=== PATIENT | male | born 1960 | race Caucasian/White ===

== ENCOUNTER 2017-07-02 09:36 | Emergency (ER) | payer MEDICAID ==
--- NOTE | 2017-07-02 10:25 | EDM.PDOC ---
ED HPI GENERAL MEDICAL PROBLEM - General Chief Complaint: Chest Pain Stated Complaint: CHEST PAIN DIFFICU;T TIME BREATHING Time Seen by Provider: 07/02/17 10:00 Source of Information: Reports: Patient History Limitations: Reports: No Limitations - History of Present Illness INITIAL COMMENTS - FREE TEXT/NARRATIVE: 56-year-old male with previous coronary artery disease, stent placement and triple bypass who over the last 2 hours has had intermittent brief chest pains lasting 10-12 seconds. No shortness of breath or diaphoresis. He came in "just to make sure". Onset: Today Duration: Hour(s): (For the last 2-1/2 hours) Location: Reports: Chest Quality: Reports: Sharp Severity: Mild Associated Symptoms: Reports: No Other Symptoms Chest Pain Score (Numeric/FACES): 7 - Related Data Allergies Allergy/AdvReac Type Severity Reaction Status Date / Time morphine AdvReac Nausea and Verified 10/09/16 07:56 Vomiting Sulfa (Sulfonamide AdvReac Nausea and Verified 10/09/16 12:34 Antibiotics) Vomiting Home Meds: Home Meds Aspirin [Halfprin] 81 mg PO DAILY 01/09/15 [History] Gabapentin [Neurontin] 600 mg PO QID 01/09/15 [History] Insulin Aspart [NovoLOG] 1 unit SQ TIDMEALS 01/09/15 [History] Insulin Glarg,Human.Rec.Analog [Lantus] 20 unit SQ BID 01/09/15 [History] metFORMIN [Glucophage] 1,000 mg PO BIDMEALS 10/08/16 [History] Acetaminophen/HYDROcodone [[place] 325-5 MG] 1 - 2 tab PO Q4H PRN #50 tablet 10/10 [Rx] Past Medical History Cardiovascular History: Reports: Other (See Below) Other Cardiovascular History: CABG X3 IN 2014 Musculoskeletal History: Reports: Back Pain, Chronic Psychiatric History: Reports: Bipolar Endocrine/Metabolic History: Reports: Diabetes, Type II, IDDM - Infectious Disease History Infectious Disease History: Reports: Chicken Pox - Past Surgical History HEENT Surgical History: Reports: Adenoidectomy, Myringotomy w Tube(s) Cardiovascular Surgical History: Reports: Coronary Artery Bypass, Coronary Artery Stent Male Surgical History: Reports: Circumcision, Vasectomy Neurological Surgical History: Reports: Lumbar Spine Musculoskeletal Surgical History: Reports: Arthroscopic Knee, Knee Replacement, Shoulder Surgery, Other (See Below) Social & Family History - Tobacco Use Smoking Status *Q: Never Smoker Second Hand Smoke Exposure: No - Caffeine Use Caffeine Use: Reports: None - Alcohol Use Days Per Week of Alcohol Use: 0 - Recreational Drug Use Recreational Drug Use: No ED ROS GENERAL - Review of Systems Review Of Systems: See Below Constitutional: Reports: No Symptoms HEENT: Reports: No Symptoms Respiratory: Denies: Shortness of Breath, Pleuritic Chest Pain Cardiovascular: Reports: Chest Pain. Denies: Blood Pressure Problem, Palpitations GI/Abdominal: Denies: Abdominal Pain, Nausea, Vomiting Skin: Denies: Diaphoresis Neurological: Reports: No Symptoms Psychiatric: Reports: No Symptoms ED EXAM, GENERAL - Physical Exam Exam: See Below Exam Limited By: No Limitations General Appearance: Alert, No Apparent Distress Eye Exam: Bilateral Eye: Normal Inspection Head: Atraumatic Respiratory/Chest: No Respiratory Distress Cardiovascular: Regular Rate, Rhythm, Extra Beats (Occasional) GI/Abdominal: Soft, Non-Tender Extremities: Normal Inspection. No: Pedal Edema Neurological: Alert, Oriented Psychiatric: Normal Affect, Normal Mood Skin Exam: Warm, Dry Course - Vital Signs Last Recorded V/S: Last Vital Signs Temp 97.5 F 07/02/17 10:35 Pulse 90 07/02/17 10:35 Resp 12 07/02/17 10:35 BP 137/92 H 07/02/17 10:35 Pulse Ox 96 07/02/17 10:35 - Orders/Labs/Meds Orders: Active Orders 24 hr Category Date Time Status EKG Documentation Completion [RC] ASDIRECTED Care 07/02/17 10:03 Active EKG 12 Lead [EK] Routine Ther 07/02/17 10:03 Ordered Labs: Laboratory Tests 07/02/17 07/02/17 Range/Units 10:16 10:16 WBC 7.2 (4.5-11.0) K/uL RBC 5.58 (4.30-5.90) M/uL Hgb 15.1 H (12.0-15.0) g/dL Hct 43.5 (40.0-54.0) % MCV 78 L (80-98) fL MCH 27 (27-31) pg MCHC 35 (32-36) % Plt Count 247 (150-400) K/uL Neut % (Auto) 63 (36-66) % Lymph % (Auto) 25 (24-44) % [place] % (Auto) 10 H (2-6) % Eos % (Auto) 2 (2-4) % Baso % (Auto) 0 (0-1) % Sodium 137 L (140-148) mmol/L Potassium 4.2 (3.6-5.2) mmol/L Chloride 104 (100-108) mmol/L Carbon Dioxide 27 (21-32) mmol/L Anion Gap 10.2 (5.0-14.0) mmol/L BUN 16 (7-18) mg/dL Creatinine 1.0 (0.8-1.3) mg/dL Est Cr Clr Drug Dosing 78.85 mL/min Estimated GFR (MDRD) > 60 (>60) Glucose 372 H (74-106) mg/dL Calcium 8.2 L (8.5-10.1) mg/dL Troponin I < 0.017 (0.000-0.056) ng/mL Meds: Medications Discontinued Medications Generic Name Dose Route Start Last Admin Trade Name Marcin PRN Reason Stop Dose Admin Nitroglycerin 0.4 mg 07/02/17 10:28 07/02/17 10:33 Nitrostat SL 07/02/17 10:29 0.4 mg ONETIME ONE Administration - Re-Assessments/Exams Free Text/Narrative Re-Assessment/Exam: 07/02/17 10:30 EKG showed no acute findings, sinus rhythm. CBC, BMP and troponin were obtained , a sublingual nitroglycerin was given to see if it would relieve esophageal spasm which is more typical of the types of pain he is experiencing. His vital signs remained stable. 07/02/17 10:51 Nitroglycerin had no effect, he was still experiencing very brief discomfort every 2-3 minutes for about 10 seconds. I offered a GI cocktail but when his troponin came back negative and he was reassured it wasn't cardiac pain he wanted to just give it a day or 2 to see if it will go away. Departure - Departure Time of Disposition: 11:10 Disposition: Home, Self-Care 01 Condition: Good Clinical Impression: Atypical chest pain, Hyperglycemia Coronary artery disease Qualifiers: Coronary Disease-Associated Artery/Lesion type: unspecified vessel or lesion type [place] vs. transplanted heart: [place] heart Associated angina: without angina Qualified Code(s): I25.10 - Atherosclerotic heart disease of [place] coronary artery without angina pectoris - Discharge Information Instructions: Nonspecific Chest Pain, [id number] Referrals: PCP,None [Primary Care Provider] - Forms: ED Department Discharge Care Plan Goals: Continue your regular medications and increase activity as tolerated. Return any time if pain worsens or you develop other concerns. - My Orders Last 24 Hours: My Active Orders 07/02/17 10:03 EKG Documentation Completion [RC] ASDIRECTED EKG 12 Lead [EK] Routine - Assessment/Plan Last 24 Hours: My Active Orders 07/02/17 10:03 EKG Documentation Completion [RC] ASDIRECTED EKG 12 Lead [EK] Routine
[2017-07-02] MEDS ORDERED: Nitroglycerin 0.4 MG Tab.SL SL ONE (10:28)
[2017-07-02 10:37] VITALS: BP 137/92
== END 2017-07-02 11:11 | disposition home or self-care (01) ==
LOC: JP.ED 09:36
DX: R07.89 Other chest pain (principal); E11.65 Type 2 diabetes mellitus with hyperglycemia; I25.10 Atherosclerotic heart disease of native coronary artery without angina pectoris; Z95.1 Presence of aortocoronary bypass graft; Z95.5 Presence of coronary angioplasty implant and graft; Z96.22 Myringotomy tube(s) status; Z98.52 Vasectomy status; Z96.659 Presence of unspecified artificial knee joint; Z98.890 Other specified postprocedural states; Z79.82 Long term (current) use of aspirin; Z79.4 Long term (current) use of insulin; Z79.84 Long term (current) use of oral hypoglycemic drugs; Z79.899 Other long term (current) drug therapy; Z88.2 Allergy status to sulfonamides; Z88.5 Allergy status to narcotic agent
CPT/HCPCS: 36415; 80048; 84484; 85025; 93005; 99285; A9270

== ENCOUNTER 2017-08-26 12:35 | Emergency (ER) | payer MEDICAID ==
[2017-08-26] MEDS ORDERED: Sodium Chloride 0.9% 10 ML Syringe FLUSH PRN ×2 (13:02→16:03)
[2017-08-26] MEDS ORDERED: Aspirin 81 MG Tab.Chew PO ONE (13:02)
[2017-08-26] MEDS ORDERED: fentaNYL 100 MCG/2 ML SDV IVPUSH ONE ×2 (13:03→13:55)
[2017-08-26] MEDS ORDERED: Ondansetron 4 MG/2 ML SDV IVPUSH ONE (13:03)
--- NOTE | 2017-08-26 13:51 | CR ---
Chest 1V Frontal FINDINGS: There is elevation of the right hemidiaphragm. Intact sternal wires are demonstrated. The h eart and vascular structures are normal in appearance. No infiltrates or effusions are demonstrated. The skeletal structures are unremarkable. IMPRESSION: 1. No acute findings.
[2017-08-26] MEDS ORDERED: Nitroglycerin 0.4 MG Tab.SL SL ONE (14:25)
[2017-08-26] MEDS ORDERED: Nitroglycerin/D5W 25 MG/250 ML BOTTLE IV SCH (15:00)
[2017-08-26] MEDS ORDERED: Clopidogrel 75 MG Tab PO ONE (16:03)
[2017-08-26] MEDS ORDERED: Heparin Sodium 5,000 Units/ML Vial IVPUSH ONE (16:03)
[2017-08-26] MEDS ORDERED: Heparin Sodium/D5W 25,000 UNITS/500 ML BAG IV SCH (16:15)
--- NOTE | 2017-08-26 16:17 | EDM.PDOC ---
ED HPI GENERAL MEDICAL PROBLEM - General Chief Complaint: Chest Pain Stated Complaint: CHEST PAIN Time Seen by Provider: 08/26/17 12:58 Source of Information: Reports: Patient, Family, RN Notes Reviewed History Limitations: Reports: No Limitations - History of Present Illness INITIAL COMMENTS - FREE TEXT/NARRATIVE: 56-year-old gentleman presents to the emergency department day complaint of chest pain, he has a known history of coronary artery disease states the chest pain started 45 minutes prior it feels worse than his prior heart attack he is nauseated the pain is radiating down his left arm and he does feel short of breath he is not diaphoretic Chest Pain Score (Numeric/FACES): 3 - Related Data Allergies Allergy/AdvReac Type Severity Reaction Status Date / Time morphine AdvReac Nausea and Verified 08/26/17 14:38 Vomiting Sulfa (Sulfonamide AdvReac Nausea and Verified 08/26/17 14:38 Antibiotics) Vomiting Home Meds: Home Meds Aspirin [Halfprin] 81 mg PO DAILY 01/09/15 [History] Gabapentin [Neurontin] 600 mg PO QID 01/09/15 [History] Insulin Aspart [NovoLOG] 1 unit SQ TIDMEALS 01/09/15 [History] Insulin Glarg,Human.Rec.Analog [Lantus] 30 unit SQ BID 01/09/15 [History] metFORMIN [Glucophage] 1,000 mg PO BIDMEALS 10/08/16 [History] Past Medical History Cardiovascular History: Reports: CAD, High Cholesterol, Hypertension, [place], Other (See Below) Other Cardiovascular History: CABG X3 IN 2014 Musculoskeletal History: Reports: Back Pain, Chronic Psychiatric History: Reports: Bipolar Endocrine/Metabolic History: Reports: Diabetes, Type II, IDDM - Infectious Disease History Infectious Disease History: Reports: Chicken Pox, Mumps - Past Surgical History HEENT Surgical History: Reports: Adenoidectomy, Myringotomy w Tube(s) Cardiovascular Surgical History: Reports: Coronary Artery Bypass, Coronary Artery Stent GI Surgical History: Reports: Cholecystectomy Male Surgical History: Reports: Circumcision, Vasectomy Neurological Surgical History: Reports: Lumbar Spine Musculoskeletal Surgical History: Reports: Arthroscopic Knee, Knee Replacement, Shoulder Surgery, Other (See Below) Other Musculoskeletal Surgeries/Procedures:: back surgery, multiple left leg surgery, left and right shoulder surgerys Social & Family History - Family History Cardiac: Reports: Heart Failure, [place] Neurological: Reports: None Oncologic: Reports: Pancreatic - Tobacco Use Smoking Status *Q: Never Smoker Second Hand Smoke Exposure: No - Caffeine Use Caffeine Use: Reports: Soda, Tea Other Caffeine Use: diet - Alcohol Use Days Per Week of Alcohol Use: 0 - Recreational Drug Use Recreational Drug Use: No ED ROS GENERAL - Review of Systems Review Of Systems: See Below Constitutional: Reports: No Symptoms HEENT: Reports: No Symptoms Respiratory: Reports: Shortness of Breath Cardiovascular: Reports: Chest Pain GI/Abdominal: Reports: Nausea. Denies: Vomiting : Reports: No Symptoms Musculoskeletal: Reports: No Symptoms Skin: Reports: No Symptoms Neurological: Reports: No Symptoms ED EXAM, GENERAL - Physical Exam Exam: See Below Exam Limited By: No Limitations General Appearance: Alert, Moderate Distress Head: Atraumatic, Normocephalic Neck: Normal Inspection, Supple, Non-Tender, Full Range of Motion Respiratory/Chest: No Respiratory Distress, Lungs Clear, Normal Breath Sounds, No Accessory Muscle Use Cardiovascular: No Murmur, Tachycardia GI/Abdominal: Soft, Non-Tender Course - Vital Signs Last Recorded V/S: Last Vital Signs Temp 99.0 F 08/26/17 13:33 Pulse 111 H 08/26/17 13:33 Resp 16 08/26/17 15:44 BP 129/80 08/26/17 15:44 Pulse Ox 99 08/26/17 15:44 - Orders/Labs/Meds Orders: Active Orders 24 hr Category Date Time Status Cardiac Monitoring [RC] .As Directed Care 08/26/17 13:02 Active EKG Documentation Completion [RC] ASDIRECTED Care 08/26/17 13:03 Active Peripheral IV Care [RC] . DIRECTED Care 08/26/17 13:03 Active Peripheral IV Care [RC] . DIRECTED Care 08/26/17 16:04 Ordered GLUCOSE POC LAB TO COLLECT [POC] Stat Lab 08/26/17 17:00 Ordered Heparin Sodium/D5W [Heparin 25,000 Units in D5W 500 ML] Med 08/26/17 16:15 Ordered 25,000 units in 500 ml IV TITRATE Metoprolol Tartrate [Lopressor] Med 08/26/17 16:18 Once 25 mg PO ONETIME ONE Nitroglycerin/D5W [Nitroglycerin 25 MG/D5W 250 ML] Med 08/26/17 15:00 Active 25 mg in 250 ml IV TITRATE Sodium Chloride 0.9% [Saline Flush] Med 08/26/17 13:02 Active 10 ml FLUSH ASDIRECTED PRN Sodium Chloride 0.9% [Saline Flush] Med 08/26/17 16:03 Ordered 10 ml FLUSH ASDIRECTED PRN Peripheral IV Insertion Adult [OM.PC] Stat Oth 08/26/17 13:02 Ordered Peripheral IV Insertion Adult [OM.PC] Stat Oth 08/26/17 16:03 Ordered Saline Lock Insert [OM.PC] Stat Oth 08/26/17 13:02 Ordered EKG 12 Lead [EK] Stat Ther 08/26/17 13:03 Ordered Medication Orders Nitroglycerin/Dextrose (Nitroglycerin 25 Mg/D5w 250 Ml) 25 mg in 250 mls @ 1.2 mls/hr IV TITRATE EMERSON; 2 MCG/MIN PRN Reason: Protocol Last Admin: 08/26/17 15:41 Dose: 2 mcg/min, 1.2 mls/hr Heparin Sodium/Dextrose (Heparin 25,000 Units In D5w 500 Ml) 25,000 units in 500 mls @ 0 mls/hr IV TITRATE EMERSON; 12 UNITS/KG/HR PRN Reason: Protocol Sodium Chloride (Saline Flush) 10 ml FLUSH ASDIRECTED PRN PRN Reason: Keep Vein Open Last Admin: 08/26/17 14:11 Dose: 10 ml Sodium Chloride (Saline Flush) 10 ml FLUSH ASDIRECTED PRN PRN Reason: Keep Vein Open Labs: Laboratory Tests 08/26/17 08/26/17 08/26/17 Range/Units 13:12 13:12 13:12 WBC 11.5 H (4.5-11.0) K/uL RBC 6.02 H (4.30-5.90) M/uL Hgb 16.4 H (12.0-15.0) g/dL Hct 46.4 (40.0-54.0) % MCV 77 L (80-98) fL MCH 27 (27-31) pg MCHC 35 (32-36) % Plt Count 299 (150-400) K/uL Neut % (Auto) 76 H (36-66) % Lymph % (Auto) 17 L (24-44) % [place] % (Auto) 6 (2-6) % Eos % (Auto) 1 L (2-4) % Baso % (Auto) 0 (0-1) % PT 11.2 (9.5-12.0) sec INR 1.04 (0.80-1.20) APTT 25.4 L (27.0-36.0) sec Sodium 135 L (140-148) mmol/L Potassium 3.8 (3.6-5.2) mmol/L Chloride 103 (100-108) mmol/L Carbon Dioxide 20 L (21-32) mmol/L Anion Gap 15.8 H (5.0-14.0) mmol/L BUN 17 (7-18) mg/dL Creatinine 1.2 (0.8-1.3) mg/dL Est Cr Clr Drug Dosing 65.71 mL/min Estimated GFR (MDRD) > 60 (>60) Glucose 483 H* (74-106) mg/dL Calcium 9.5 D (8.5-10.1) mg/dL Total Bilirubin 0.9 D (0.2-1.0) mg/dL AST 86 H (15-37) U/L ALT 134 H (12-78) U/L Alkaline Phosphatase 153 H (46-116) U/L CK-MB (CK-2) 2.2 (0-3.6) mg/mL Troponin I 0.031 (0.000-0.056) ng/mL Total Protein 7.1 (6.4-8.2) g/dL Albumin 3.3 L (3.4-5.0) g/dL Globulin 3.8 H (2.3-3.5) g/dL Albumin/Globulin Ratio 0.9 L (1.2-2.2) 08/26/17 Range/Units 15:20 WBC (4.5-11.0) K/uL RBC (4.30-5.90) M/uL Hgb (12.0-15.0) g/dL Hct (40.0-54.0) % MCV (80-98) fL MCH (27-31) pg MCHC (32-36) % Plt Count (150-400) K/uL Neut % (Auto) (36-66) % Lymph % (Auto) (24-44) % [place] % (Auto) (2-6) % Eos % (Auto) (2-4) % Baso % (Auto) (0-1) % PT (9.5-12.0) sec INR (0.80-1.20) APTT (27.0-36.0) sec Sodium (140-148) mmol/L Potassium (3.6-5.2) mmol/L Chloride (100-108) mmol/L Carbon Dioxide (21-32) mmol/L Anion Gap (5.0-14.0) mmol/L BUN (7-18) mg/dL Creatinine (0.8-1.3) mg/dL Est Cr Clr Drug Dosing mL/min Estimated GFR (MDRD) (>60) Glucose (74-106) mg/dL Calcium (8.5-10.1) mg/dL Total Bilirubin (0.2-1.0) mg/dL AST (15-37) U/L ALT (12-78) U/L Alkaline Phosphatase (46-116) U/L CK-MB (CK-2) (0-3.6) mg/mL Troponin I 1.449 H* (0.000-0.056) ng/mL Total Protein (6.4-8.2) g/dL Albumin (3.4-5.0) g/dL Globulin (2.3-3.5) g/dL Albumin/Globulin Ratio (1.2-2.2) Meds: Medications Generic Name Dose Route Start Last Admin Trade Name Freq PRN Reason Stop Dose Admin Nitroglycerin/Dextrose 25 mg in 250 mls @ 1.2 mls/hr 08/26/17 15:00 08/26/17 15:41 Nitroglycerin 25 Mg/D5w 250 Ml IV 2 mcg/min TITRATE EMERSON 1.2 mls/hr Protocol Administration 2 MCG/MIN Heparin Sodium/Dextrose 25,000 units in 500 mls @ 0 mls/hr 08/26/17 16:15 Heparin 25,000 Units In D5w 500 Ml IV TITRATE EMERSON Protocol 12 UNITS/KG/HR Sodium Chloride 10 ml 08/26/17 13:02 08/26/17 14:11 Saline Flush FLUSH 10 ml ASDIRECTED PRN Administration Keep Vein Open Sodium Chloride 10 ml 08/26/17 16:03 Saline Flush FLUSH ASDIRECTED PRN Keep Vein Open Discontinued Medications Generic Name Dose Route Start Last Admin Trade Name Goyoq PRN Reason Stop Dose Admin Aspirin 324 mg 08/26/17 13:02 08/26/17 13:21 Aspirin PO 08/26/17 13:03 324 mg ONETIME ONE Administration Clopidogrel Bisulfate 300 mg 08/26/17 16:03 Plavix PO 08/26/17 16:04 ONETIME ONE Fentanyl 100 mcg 08/26/17 13:03 08/26/17 13:21 Sublimaze IVPUSH 08/26/17 13:04 100 mcg ONETIME ONE Administration Fentanyl 50 mcg 08/26/17 13:55 08/26/17 14:07 Sublimaze IVPUSH 08/26/17 13:56 50 mcg ONETIME ONE Administration Heparin Sodium (Porcine) 4,000 units 08/26/17 16:03 Heparin Sodium IVPUSH 08/26/17 16:04 .BOLUS ONE Insulin Aspart 10 unit 08/26/17 14:35 Novolog SUBCUT 08/26/17 14:36 NOW STA Insulin Aspart 30 unit 08/26/17 15:49 Novolog SUBCUT 08/26/17 15:50 NOW STA Insulin Aspart Confirm 08/26/17 16:15 Novolog Administered 08/26/17 16:16 Dose 1,000 unit .ROUTE .STK-MED ONE Nitroglycerin 0.4 mg 08/26/17 14:25 08/26/17 14:30 Nitrostat SL 08/26/17 14:26 0.4 mg ONETIME ONE Administration Ondansetron HCl 4 mg 08/26/17 13:03 08/26/17 13:23 Zofran IVPUSH 08/26/17 13:04 4 mg ONETIME ONE Administration Departure - Departure Time of Disposition: 16:22 Disposition: DC/Tfer to Acute Hospital 02 Reason for Transfer *Q: Primary PCI Indicated Condition: Fair Clinical Impression: Non-STEMI (non-ST elevated myocardial infarction) Referrals: Gilberto Cage MD [Primary Care Provider] - Forms: ED Department Discharge - My Orders Last 24 Hours: My Active Orders 08/26/17 13:02 Cardiac Monitoring [RC] .As Directed Sodium Chloride 0.9% [Saline Flush] 10 ml FLUSH ASDIRECTED PRN Peripheral IV Insertion Adult [OM.PC] Stat Saline Lock Insert [OM.PC] Stat 08/26/17 13:03 EKG Documentation Completion [RC] ASDIRECTED Peripheral IV Care [RC] . DIRECTED EKG 12 Lead [EK] Stat 08/26/17 15:00 Nitroglycerin/D5W [Nitroglycerin 25 MG/D5W 250 ML] 25 mg in 250 ml IV TITRATE 08/26/17 16:03 Sodium Chloride 0.9% [Saline Flush] 10 ml FLUSH ASDIRECTED PRN Peripheral IV Insertion Adult [OM.PC] Stat 08/26/17 16:04 Peripheral IV Care [RC] . DIRECTED 08/26/17 16:15 Heparin Sodium/D5W [Heparin 25,000 Units in D5W 500 ML] 25,000 units in 500 ml IV TITRATE 08/26/17 16:18 Metoprolol Tartrate [Lopressor] 25 mg PO ONETIME ONE 08/26/17 17:00 GLUCOSE POC LAB TO COLLECT [POC] Stat - Assessment/Plan Last 24 Hours: My Active Orders 08/26/17 13:02 Cardiac Monitoring [RC] .As Directed Sodium Chloride 0.9% [Saline Flush] 10 ml FLUSH ASDIRECTED PRN Peripheral IV Insertion Adult [OM.PC] Stat Saline Lock Insert [OM.PC] Stat 08/26/17 13:03 EKG Documentation Completion [RC] ASDIRECTED Peripheral IV Care [RC] . DIRECTED EKG 12 Lead [EK] Stat 08/26/17 15:00 Nitroglycerin/D5W [Nitroglycerin 25 MG/D5W 250 ML] 25 mg in 250 ml IV TITRATE 08/26/17 16:03 Sodium Chloride 0.9% [Saline Flush] 10 ml FLUSH ASDIRECTED PRN Peripheral IV Insertion Adult [OM.PC] Stat 08/26/17 16:04 Peripheral IV Care [RC] . DIRECTED 08/26/17 16:15 Heparin Sodium/D5W [Heparin 25,000 Units in D5W 500 ML] 25,000 units in 500 ml IV TITRATE 08/26/17 16:18 Metoprolol Tartrate [Lopressor] 25 mg PO ONETIME ONE 08/26/17 17:00 GLUCOSE POC LAB TO COLLECT [POC] Stat Plan: Assessment Acuity = acute Site and laterality = non-ST elevation myocardial infarction complicated patient with known history coronary artery disease, hypertension, dyslipidemia and diabetes mellitus type 2 Etiology = probably related coronary artery disease Manifestations = chest pain no stable Location of injury = Home Lab values = WBC elevated 11.5 consistent with leukocytosis, hemoglobin elevated 16.9 sodium low at 135 consistent hyponatremia glucose elevated at 483 consistent with hyperglycemia AST elevated 86 ALTs elevated 153 consistent with elevated liver enzymes initial troponin was 0.0312 hours later 1.449 albumin low at 3.3 consistent hypoalbuminemia EKG demonstrates sinus rhythm I don't appreciate any ST elevations or depressions, chest x-ray shows no acute process Plan Called and discussed case with Dr. Seo hospitalist sales solutions associate at [facility] kindly accept the patient in transport he will be transported via EMS ground he has received aspirin, 3 sprays of nitroglycerin followed by a nitro drip 150 g of fentanyl he is pain-free at this time 25 mg of metoprolol 300 mg of Plavix 4000 and unit bolus of heparin and initiated heparin drip upon discharge from the ED Patient was in agreement with the plan all questions were answered, This note was dictated using [employer] voice recognition software please call with any questions.
[2017-08-26] MEDS ORDERED: Metoprolol Tartrate 25 MG Tab PO ONE (16:18)
[2017-08-26 16:35] VITALS: BP 129/97
== END 2017-08-26 16:58 ==
LOC: JP.ED 12:35
DX: I21.4 Non-ST elevation (NSTEMI) myocardial infarction (principal); Z88.5 Allergy status to narcotic agent; Z88.2 Allergy status to sulfonamides; Z79.82 Long term (current) use of aspirin; Z79.899 Other long term (current) drug therapy; E11.9 Type 2 diabetes mellitus without complications; Z79.4 Long term (current) use of insulin
CPT/HCPCS: 36415; 71010; 80053; 82553; 82962; 84484; 85025; 85610; 85730; 93005; 96374; 96375; 96376; 99285; A9270; J1644; J2405; J3010; J7050

== ENCOUNTER 2018-02-16 08:35 | Inpatient (IN) | payer MEDICAID ==
[~2018-02-16 08:35] MED LIST: Acetaminophen 500 MG Tab PO ONE; Gabapentin 300 MG Cap PO ONE; Lactated Ringers 1,000 ML IV SCH; Scopolamine 1.5 MG Transdermal Patch TOP SCH
[2018-02-16] MEDS ORDERED: ceFAZolin 2 GM in Premix Bag 1 BAG IV ONE (09:00)
[2018-02-16] MEDS ORDERED: Ondansetron 4 MG/2 ML SDV ONE (09:15)
[2018-02-16] MEDS ORDERED: Dexamethasone 4 MG/ML SDV ONE (09:15)
[2018-02-16] MEDS ORDERED: Propofol 200 MG/20 ML SDV ONE ×4 (09:15→16:14)
[2018-02-16] MEDS ORDERED: Rocuronium 50 MG/5 ML Vial ONE (09:15)
[2018-02-16] MEDS ORDERED: Succinylcholine 200 MG/10 ML MDV ONE (09:15)
[2018-02-16] MEDS ORDERED: fentaNYL 250 MCG/5 ML SDV ONE ×5 (09:15→15:37)
[2018-02-16] MEDS ORDERED: Ketamine 500 MG/5 ML MDV IV SCH (10:00)
[2018-02-16] MEDS ORDERED: Ropivacaine 49.25 ML, Ketorolac 30 MG, EPINEPHrine 0.5 MG, cloNIDine 80 MCG, Sodium Chl... INJECT ONE ×5 (10:00)
[2018-02-16] MEDS ORDERED: Thrombin (Bovine) 5,000 Unit Kit ONE (10:24)
[2018-02-16] MEDS ORDERED: Povidone-Iodine 10% Soln 118.25 ML Bottle ONE (10:24)
[2018-02-16] MEDS ORDERED: HYDROmorphone/Normal Saline 15 MG/30 ML PCA IV PRN (10:28)
[2018-02-16] MEDS ORDERED: Naloxone 0.4 MG/ML SDV IV PRN (10:30)
[2018-02-16] MEDS: Tranexamic Acid 900 MG in Sodium Chloride 0.9% 50 ML IV SCH ×2 (13:28→17:27)
[2018-02-16] MEDS ORDERED: Linezolid 200 MG/100 ML Bag IRR ONE (15:08)
[2018-02-16] MEDS ORDERED: Meropenem 500 MG SDV ONE (15:45)
[2018-02-16] MEDS ORDERED: Labetalol 20 MG/4 ML Syringe ONE (16:07)
[2018-02-16] MEDS ORDERED: Lactated Ringers 1,000 ML ONE (16:23)
[2018-02-16] MEDS ORDERED: hydrOXYzine HCl 100 MG/2 ML SDV IM ONE (16:30)
[2018-02-16] MEDS ORDERED: ceFAZolin 1 GM in Premix Bag 1 BAG IV ONE (17:15)
[2018-02-16] MEDS ORDERED: 50% Dextrose in Water 50 ML Syringe IVPUSH PRN (17:27)
[2018-02-16] MEDS ORDERED: Glucagon,Human Recombinant 1 MG Vial IM PRN (17:27)
[2018-02-16] MEDS ORDERED: Glucose Gel 15 GM in 37.5 GM Tube PO PRN (17:27)
--- NOTE | 2018-02-16 17:27 | OR ---
DATE OF PROCEDURE: 02/16/2018 PREOPERATIVE DIAGNOSIS: Lumbar stenosis, L4-L5 and L5-S1. POSTOPERATIVE DIAGNOSIS: Lumbar stenosis, L4-L5 and L5-S1. PROCEDURE: 1. Anterior lumbar interbody fusion, L4-L5 and L5-S1. 2. Interbody placement at L4-L5 and L5-S1. 3. Segmental instrumentation anteriorly at L4-L5 and L5-S1. CO-SURGEON: Gal Dyson MD. ANESTHESIA: General endotracheal intubation. FLUIDS: Lactated Ringer's solution. ESTIMATED BLOOD LOSS: 250 mL. COMPLICATIONS: None. SPECIMEN: None. DISCHARGE DISPOSITION: Stable to PACU. HISTORY AND INDICATIONS FOR THE PROCEDURE: The patient was seen preoperatively in the clinic. He failed nonoperative treatment. Preoperative imaging confirmed the above- mentioned diagnosis. Risks and benefits of the procedure were explained to the patient. Informed consent was obtained. DETAILS OF PROCEDURE: The patient was seen preoperatively by myself and the Anesthesia staff in the preoperative holding area, where the operative site was marked. He was brought to the operative suite by Anesthesia staff where general anesthesia was administered, neuromonitoring leads were placed, and normal at baseline. Sterile Sen catheter was inserted. The fluoroscopy unit was draped in a sterile manner. A time-out was called identifying the correct patient, the correct procedure, the correct site, and antibiotics were begun within appropriate period of time. Please see Dr. Gal Dyson's note for exposure. After exposure was completed at L5-S1, I then went through the anterior annulus with a Bovie electrocautery and a deep 15 blade. I then used a Madrigal to go along the vertebral endplates and then removed as much as I could of the disk on block. I then used curettes, pituitaries, and Kerrisons to remove the remainder of the disk. I then sequentially inserted lisandra from 9 mm to 15 mm. I then inserted a 25 x 31, 15-degree, 15 mm trial and evaluated this under fluoroscopy. I did make some minor adjustments to make sure that I could get midline enough. I then removed this trial. I then packed the final implant, which was a magnify-S from [employer], 25 x 31, 15-degree, 14-17 mm implant. Then, I had packed it with Signify allograft from [employer]. We then inserted and then I expanded it under direct fluoroscopic visualization. I then awl'd my awl, tapped in place my 30 mm screws, all 3 were 30 mm, hydroxyapatite coated, 5.[address] Gal Dyson then exposed the L4- L5 level and then I repeated the same procedure with the same size trial and the same size implant with two 30 mm screws superiorly and on the right and then a 25 mm screw on the left. I was unable to place a 30 mm screw on the left because it would not go down far enough. I then locked all of my screws into place on both implants. We took final films. Please see Dr. Gal Dyson's note for closure. Chao Dyson DO /[id number]
[2018-02-16] MEDS ORDERED: Ondansetron 4 MG/2 ML SDV IVPUSH PRN (17:29)
[2018-02-16] MEDS: ceFAZolin 2 GM in Premix Bag 1 BAG IV SCH (17:29)
[2018-02-16] MEDS ORDERED: Insulin Aspart 100 Units/ML 3 ML Pen SUBCUT ONE (17:30)
[2018-02-16] MEDS ORDERED: hydrOXYzine HCl 100 MG/2 ML SDV IM PRN (17:30)
[2018-02-16] MEDS ORDERED: hydrOXYzine HCl 25 MG Tab PO PRN (17:31)
[2018-02-16] MEDS ORDERED: Cyclobenzaprine 10 MG Tab PO PRN ×2 (17:31→18:00)
[2018-02-16] MEDS: SCOPOLAMINE PATCH CHECK TOP SCH (18:42)
[2018-02-16] MEDS: Pantoprazole 40 MG Vial IV SCH (18:48)
[2018-02-16] MEDS: Acetaminophen 500 MG Tab PO SCH (18:48)
[2018-02-16] MEDS: Dextrose 5%-Lactated Ringers 1,000 ML IV SCH (18:49)
[2018-02-16] MEDS ORDERED: Gabapentin 300 MG Cap PO SCH (21:00)
[2018-02-16] MEDS: Insulin Detemir 100 Units/ML 3 ML Pen SUBCUT SCH (21:51)
[2018-02-16] MEDS: Insulin Aspart 100 Units/ML 3 ML Pen SUBCUT PRN (21:54)
[2018-02-17] MEDS: Acetaminophen 500 MG Tab PO SCH ×2 (01:02→05:54)
[2018-02-17] MEDS: ceFAZolin 2 GM in Premix Bag 1 BAG IV SCH ×2 (01:02→10:28)
[2018-02-17] MEDS: Dextrose 5%-Lactated Ringers 1,000 ML IV SCH ×3 (02:17→17:41)
[2018-02-17] MEDS ORDERED: Acetaminophen/oxyCODONE 325-5 MG Tab PO PRN (07:24)
[2018-02-17] MEDS ORDERED: Cyclobenzaprine 10 MG Tab PO PRN (07:26)
[2018-02-17] MEDS ORDERED: INSULIN GLARGINE HUM REC ANLOG SQ SCH (07:30)
[2018-02-17] MEDS ORDERED: [UNRECOGNIZED DRUG - OTHER] SQ SCH (07:30)
[2018-02-17] MEDS: Gabapentin 300 MG Cap PO SCH ×4 (08:26→21:35)
[2018-02-17] MEDS: Docusate Sodium 100 MG Cap PO SCH ×2 (08:27→21:35)
[2018-02-17] MEDS: Aspirin 81 MG Tab.EC PO SCH (08:27)
[2018-02-17] MEDS: Ticagrelor 90 MG Tab PO SCH ×2 (08:27→21:35)
[2018-02-17] MEDS: SCOPOLAMINE PATCH CHECK TOP SCH (08:28)
[2018-02-17] MEDS: Insulin Detemir 100 Units/ML 3 ML Pen SUBCUT SCH ×2 (08:31→21:29)
[2018-02-17] MEDS: Lisinopril 2.5 MG Tab PO SCH (08:34)
[2018-02-17] MEDS ORDERED: Aspirin 81 MG Tab.EC PO SCH (09:00)
[2018-02-17] MEDS ORDERED: INSULIN GLARG HUMAN REC ANALOG 20 UNIT SQ SCH (09:00)
[2018-02-17] MEDS ORDERED: Non-Formulary Medication 1 Each (Gabapentin [Neurontin] 600 MG) PO SCH (10:00)
[2018-02-17] MEDS: Insulin Aspart 100 Units/ML 3 ML Pen SUBCUT PRN ×3 (11:58→21:31)
--- NOTE | 2018-02-17 15:46 | PCM.SURGPN ---
- General Info Date of Service: 02/17/18 Date of Surgery/Procedure: 02/16/18 POD#: 1 Post-Op Diagnosis: Lumbar stenosis L4-L5 L5-S1 Functional Status: Reports: Pain Controlled, Ambulating, Urinating - Review of Systems General: Reports: No Symptoms HEENT: Reports: No Symptoms Pulmonary: Reports: No Symptoms Cardiovascular: Reports: No Symptoms Gastrointestinal: Reports: Abdominal Pain (pain at incision site) Genitourinary: Reports: No Symptoms Musculoskeletal: Reports: No Symptoms Systems Review Comment:: Pt states he is doing very well, no back pain although he does have some pain at the incision site on abdomen. Pt states he is hungry and would like to eat. - Patient Data Vitals - Most Recent: Last Vital Signs Temp 36.4 C 02/17/18 14:14 Pulse 99 02/17/18 14:14 Resp 18 02/17/18 14:14 BP 141/73 H 02/17/18 14:14 Pulse Ox 97 02/17/18 14:14 Weight - Most Recent: 83.915 kg I&O - Last 24 Hours: Intake & Output 02/17/18 02/17/18 02/17/18 06:59 14:59 22:59 Intake Total 1712 470 Output Total 1150 350 Balance 562 120 Med Orders - Current: Current Medications Aspirin (Halfprin) 81 mg PO DAILY [facility] Last Admin: 02/17/18 08:27 Dose: 81 mg Cyclobenzaprine HCl (Flexeril) 10 mg PO Q6H PRN PRN Reason: MUSCLE SPASM Cyclobenzaprine HCl (Flexeril) 10 mg PO TID PRN PRN Reason: Muscle Spasm Dextrose (Glutose 15) 15 gm PO ASDIRECTED PRN PRN Reason: HYPOGLYCEMIA Dextrose/Water (Dextrose 50% In Water) 50 ml IVPUSH ASDIRECTED PRN PRN Reason: HYPOGLYCEMIA Docusate Sodium (Colace) 100 mg PO BID [facility] Last Admin: 02/17/18 08:27 Dose: 100 mg Gabapentin (Neurontin) 600 mg PO QID [facility] Last Admin: 02/17/18 10:25 Dose: Not Given Glucagon (Glucagen) 1 mg IM ASDIRECTED PRN PRN Reason: HYPOGLYCEMIA Hydromorphone HCl (Dilaudid [employer] 15 Mg In Ns 30 Ml) 0 mg IV ASDIRECTED PRN; Protocol PRN Reason: Pain Last Admin: 02/16/18 10:43 Dose: 0.3 mg Hydroxyzine HCl (Vistaril) 100 mg IM Q4H PRN PRN Reason: PAIN Hydroxyzine HCl (Atarax) 100 mg PO Q4H PRN PRN Reason: PAIN Dextrose/Lactated Ringer's (Dextrose 5%-Lactated Ringers) 1,000 mls @ 150 mls/ hr IV ASDIRECTED [facility] Last Admin: 02/17/18 12:38 Dose: 150 mls/hr Insulin Aspart (Novolog) 0 unit SUBCUT QID PRN; Protocol PRN Reason: LOW CORRECTIONAL DOSE Last Admin: 02/17/18 11:58 Dose: 4 units Insulin Detemir (Levemir) 20 unit SUBCUT BID [facility] Last Admin: 02/17/18 08:31 Dose: 20 units Lisinopril (Prinivil) 2.5 mg PO DAILY [facility] Last Admin: 02/17/18 08:34 Dose: 2.5 mg Naloxone HCl (Narcan) 0.1 mg IV ASDIRECTED PRN PRN Reason: decreased respiratory rate Scopolamine Patch (Check) 1 each TOP DAILY [facility] Last Admin: 02/17/18 08:28 Dose: Not Given Ondansetron HCl (Zofran) 4 mg IVPUSH Q4H PRN PRN Reason: NAUSEA Last Admin: 02/16/18 23:22 Dose: 4 mg Oxycodone/Acetaminophen (Percocet 325-5 Mg) 1 - 2 tab PO Q4H PRN PRN Reason: paiin Pantoprazole Sodium (Protonix Iv) 40 mg IV Q24H [facility] Last Admin: 02/16/18 18:48 Dose: 40 mg Scopolamine (Transderm-Scop) 1.5 mg TOP Q72H [facility] Last Admin: 02/16/18 09:06 Dose: 1.5 mg Ticagrelor (Brilinta) 90 mg PO BID [facility] Last Admin: 02/17/18 08:27 Dose: 90 mg Discontinued Medications Acetaminophen (Tylenol Extra Strength) 1,000 mg PO ONETIME ONE Stop: 02/16/18 08:31 Last Admin: 02/16/18 09:06 Dose: 1,000 mg Acetaminophen (Tylenol Extra Strength) 1,000 mg PO Q6H [facility] Last Admin: 02/17/18 05:54 Dose: 1,000 mg Aspirin (Halfprin) 81 mg PO DAILY [facility] Last Admin: 02/17/18 08:28 Dose: Not Given Cyclobenzaprine HCl (Flexeril) 10 mg PO Q8H PRN PRN Reason: MUSCLE SPASM Dexamethasone (Dexamethasone) Confirm Administered Dose 4 mg .ROUTE .STK-MED ONE Stop: 02/16/18 09:16 Fentanyl (Sublimaze) Confirm Administered Dose 250 mcg .ROUTE .STK-MED ONE Stop: 02/16/18 09:16 Fentanyl (Sublimaze) Confirm Administered Dose 250 mcg .ROUTE .STK-MED ONE Stop: 02/16/18 13:28 Fentanyl (Sublimaze) Confirm Administered Dose 250 mcg .ROUTE .STK-MED ONE Stop: 02/16/18 13:46 Fentanyl (Sublimaze) Confirm Administered Dose 250 mcg .ROUTE .STK-MED ONE Stop: 02/16/18 14:02 Fentanyl (Sublimaze) Confirm Administered Dose 250 mcg .ROUTE .STK-MED ONE Stop: 02/16/18 15:38 Gabapentin (Neurontin) 300 mg PO ONETIME ONE Stop: 02/16/18 08:31 Last Admin: 02/16/18 09:07 Dose: 300 mg Gabapentin (Neurontin) 300 mg PO TID [facility] Last Admin: 02/16/18 21:51 Dose: 300 mg Hydroxyzine HCl (Vistaril) 100 mg IM ONETIME ONE Stop: 02/16/18 16:31 Last Admin: 02/16/18 17:31 Dose: 100 mg Cefazolin Sodium/Dextrose 2 gm (/ Premix) 50 mls @ 100 mls/hr IV ONETIME ONE Stop: 02/16/18 09:29 Last Admin: 02/16/18 12:59 Dose: 100 mls/hr Lactated Ringer's (Ringers, Lactated) 1,000 mls @ 100 mls/hr IV ASDIRECTED [facility] Last Admin: 02/16/18 09:07 Dose: 100 mls/hr Tranexamic Acid 900 mg/ Sodium (Chloride) 59 mls @ 236 mls/hr IV Q3H [facility] Stop: 02/16/18 13:14 Last Admin: 02/16/18 17:27 Dose: 236 mls/hr Ketamine HCl 100 mg/ Sodium (Chloride) 100 mls @ 20.58 mls/hr IV ASDIRECTED [facility] Linezolid (Zyvox) Confirm Administered Dose 100 mls @ as directed .ROUTE .STK- MED ONE Stop: 02/16/18 10:25 Lactated Ringer's (Ringers, Lactated) Confirm Administered Dose 1,000 mls @ as directed .ROUTE .STK-MED ONE Stop: 02/16/18 16:24 Cefazolin Sodium/Dextrose 2 gm (/ Premix) 50 mls @ 100 mls/hr IV Q8H [facility] Stop: 02/17/18 09:59 Last Admin: 02/17/18 10:28 Dose: 100 mls/hr Insulin Aspart (Novolog) 1 unit SUBCUT ONETIME ONE Stop: 02/16/18 17:31 Last Admin: 02/16/18 17:20 Dose: 1 units Ketamine HCl (Ketalar) 34 mg IV ASDIRECTED [facility] Labetalol HCl (Normodyne) Confirm Administered Dose 20 mg .ROUTE .STK-MED ONE Stop: 02/16/18 16:08 Linezolid (Zyvox) 200 mg IRR .STK-MED ONE Stop: 02/16/18 15:09 Last Admin: 02/16/18 15:08 Dose: 200 mg Meropenem (Merrem) Confirm Administered Dose 500 mg .ROUTE .STK-MED ONE Stop: 02/16/18 15:46 Last Admin: 02/16/18 15:48 Dose: 500 mg Ondansetron HCl (Zofran) Confirm Administered Dose 4 mg .ROUTE .STK-MED ONE Stop: 02/16/18 09:16 Povidone Iodine (Betadine 10% Soln) Confirm Administered Dose 1 ml .ROUTE .STK- MED ONE Stop: 02/16/18 10:25 Propofol (Diprivan 20 Ml) Confirm Administered Dose 200 mg .ROUTE .STK-MED ONE Stop: 02/16/18 09:16 Propofol (Diprivan 20 Ml) Confirm Administered Dose 600 mg .ROUTE .STK-MED ONE Stop: 02/16/18 12:18 Propofol (Diprivan 20 Ml) Confirm Administered Dose 400 mg .ROUTE .STK-MED ONE Stop: 02/16/18 14:43 Propofol (Diprivan 20 Ml) Confirm Administered Dose 400 mg .ROUTE .STK-MED ONE Stop: 02/16/18 16:15 Rocuronium [place] (Zemuron) Confirm Administered Dose 50 mg .ROUTE .STK-MED ONE Stop: 02/16/18 09:16 Succinylcholine Chloride (Quelicin) Confirm Administered Dose 200 mg .ROUTE .STK -MED ONE Stop: 02/16/18 09:16 - Exam General: Alert, Oriented, Cooperative, No Acute Distress HEENT: Pupils Equal, EOMI Lungs: Clear to Auscultation, Normal Respiratory Effort Cardiovascular: Regular Rate, Regular Rhythm, No Murmurs Skin: Warm, Dry Neurological: Normal Speech Psy/Mental Status: Alert, Normal Affect, Normal Mood (pt is AO X3 and very pleasant today. pt is sitting up in chair) - Problem List & Annotations (1) Lumbar discogenic pain syndrome SNOMED Code(s): 41479147 Code(s): M51.26 - OTHER INTERVERTEBRAL DISC DISPLACEMENT, LUMBAR REGION Status: Chronic Current Visit: No (2) Lumbar foraminal stenosis SNOMED Code(s): 545550678067, 682529076526 Code(s): M99.83 - OTHER BIOMECHANICAL LESIONS OF LUMBAR REGION Status: Chronic Current Visit: No (3) Status post lumbar spinal fusion SNOMED Code(s): 84572655570087, 87827409, 78361366539457 Code(s): Z98.1 - ARTHRODESIS STATUS Status: Acute Current Visit: Yes Annotation/Comment:: ALIF l4 -L5, L5 -S1 - Problem List Review Problem List Initiated/Reviewed/Updated: Yes - My Orders Last 24 Hours: Active Orders 24 hr Category Date Time Status Admission Status [Patient Status] [ADT] Routine ADT 02/16/18 16:50 Active Ambulate [RC] ASDIRECTED Care 02/17/18 11:07 Active Drain Management [RC] ASDIRECTED Care 02/17/18 11:11 Active Head of Bed Elevation [RC] CONTINUOUS Care 02/17/18 11:07 Active Overnight Pulse Oximetry [RC] Click to Edit Care 02/16/18 16:50 Active Pneumonia Education [RC] UPON Care 02/17/18 11:07 Active RT Incentive Spirometry [RC] Q1HR Care 02/17/18 11:07 Active Turn, Cough, Deep Breathe [RC] Q1HWA Care 02/17/18 11:07 Active Up to Chair [RC] TIDMEALS Care 02/17/18 11:07 Active OT Evaluation and Treatment [CONS] Routine Cons 02/17/18 07:00 Active PT Evaluation and Treatment [CONS] Routine Cons 02/17/18 07:00 Active Respiratory Care Assess and Treatment [CONS] Routine Cons 02/17/18 11:07 Active Consistent Carbohydrate Diet [DIET] Diet 02/17/18 Breakfast Active GLUCOSE POC LAB TO COLLECT [POC] QIDACANDBED Lab 02/17/18 16:30 Ordered GLUCOSE POC LAB TO COLLECT [POC] QIDACANDBED Lab 02/17/18 21:00 Ordered GLUCOSE POC LAB TO COLLECT [POC] QIDACANDBED Lab 02/18/18 07:30 Ordered GLUCOSE POC LAB TO COLLECT [POC] QIDACANDBED Lab 02/18/18 11:30 Ordered GLUCOSE POC LAB TO COLLECT [POC] QIDACANDBED Lab 02/18/18 16:30 Ordered GLUCOSE POC LAB TO COLLECT [POC] QIDACANDBED Lab 02/18/18 21:00 Ordered GLUCOSE POC LAB TO COLLECT [POC] QIDACANDBED Lab 02/19/18 07:30 Ordered Acetaminophen/oxyCODONE [Percocet 325-5 MG] Med 02/17/18 07:24 Active 1 - 2 tab PO Q4H PRN Aspirin [Halfprin] Med 02/17/18 09:00 Active 81 mg PO DAILY Cyclobenzaprine [Flexeril] Med 02/16/18 18:00 Active 10 mg PO Q6H PRN Cyclobenzaprine [Flexeril] Med 02/17/18 07:26 Active 10 mg PO TID PRN Dextrose 5%-Lactated Ringers 1,000 ml Med 02/16/18 17:45 Active IV ASDIRECTED Dextrose 50% in Water Med 02/16/18 17:27 Active 50 ml IVPUSH ASDIRECTED PRN Dextrose [Glutose 15] Med 02/16/18 17:27 Active 15 gm PO ASDIRECTED PRN Docusate Sodium [Colace] Med 02/17/18 09:00 Active 100 mg PO BID Gabapentin [Neurontin] Med 02/17/18 08:00 Active 600 mg PO QID Glucagon,Human Recombinant [GlucaGen] Med 02/16/18 17:27 Active 1 mg IM ASDIRECTED PRN Insulin Aspart [NovoLOG] Med 02/16/18 17:27 Active 0 unit SUBCUT QID PRN Insulin Detemir [Levemir] Med 02/16/18 21:00 Active 20 unit SUBCUT BID Lisinopril [Prinivil] Med 02/17/18 09:00 Active 2.5 mg PO DAILY Non-Formulary Medication [NF Drug] Med 02/16/18 18:00 Active 1 each TOP DAILY Ondansetron [Zofran] Med 02/16/18 17:29 Active 4 mg IVPUSH Q4H PRN Pantoprazole [ProTONIX IV] Med 02/16/18 17:30 Active 40 mg IV Q24H Ticagrelor [Brilinta] Med 02/17/18 09:00 Active 90 mg PO BID hydrOXYzine HCl [Atarax] Med 02/16/18 17:31 Active 100 mg PO Q4H PRN hydrOXYzine HCl [Vistaril] Med 02/16/18 17:30 Active 100 mg IM Q4H PRN Pulse Oximetry Continuous Monitoring [OM.PC] Routine Oth 02/16/18 16:50 Ordered Medication Orders Aspirin (Halfprin) 81 mg PO DAILY [facility] Last Admin: 02/17/18 08:27 Dose: 81 mg Cyclobenzaprine HCl (Flexeril) 10 mg PO Q6H PRN PRN Reason: MUSCLE SPASM Cyclobenzaprine HCl (Flexeril) 10 mg PO TID PRN PRN Reason: Muscle Spasm Dextrose (Glutose 15) 15 gm PO ASDIRECTED PRN PRN Reason: HYPOGLYCEMIA Dextrose/Water (Dextrose 50% In Water) 50 ml IVPUSH ASDIRECTED PRN PRN Reason: HYPOGLYCEMIA Docusate Sodium (Colace) 100 mg PO BID [facility] Last Admin: 02/17/18 08:27 Dose: 100 mg Gabapentin (Neurontin) 600 mg PO QID [facility] Last Admin: 02/17/18 10:25 Dose: Not Given Admin: 02/17/18 08:26 Dose: 600 mg Glucagon (Glucagen) 1 mg IM ASDIRECTED PRN PRN Reason: HYPOGLYCEMIA Hydromorphone HCl (Dilaudid [employer] 15 Mg In Ns 30 Ml) 0 mg IV ASDIRECTED PRN; Protocol PRN Reason: Pain Last Admin: 04/17/18 10:43 Dose: 0.3 mg Hydroxyzine HCl (Vistaril) 100 mg IM Q4H PRN PRN Reason: PAIN Hydroxyzine HCl (Atarax) 100 mg PO Q4H PRN PRN Reason: PAIN Dextrose/Lactated Ringer's (Dextrose 5%-Lactated Ringers) 1,000 mls @ 150 mls/ hr IV ASDIRECTED [facility] Last Admin: 02/17/18 12:38 Dose: 150 mls/hr Infusion: 02/17/18 08:58 Dose: 150 mls/hr Admin: 02/17/18 02:17 Dose: 150 mls/hr Infusion: 02/17/18 01:30 Dose: 150 mls/hr Admin: 02/16/18 18:49 Dose: 150 mls/hr Insulin Aspart (Novolog) 0 unit SUBCUT QID PRN; Protocol PRN Reason: LOW CORRECTIONAL DOSE Last Admin: 02/17/18 11:58 Dose: 4 units Admin: 02/16/18 21:54 Dose: 4 units Insulin Detemir (Levemir) 20 unit SUBCUT BID [facility] Last Admin: 02/17/18 08:31 Dose: 20 units Admin: 02/16/18 21:51 Dose: 20 units Lisinopril (Prinivil) 2.5 mg PO DAILY [facility] Last Admin: 02/17/18 08:34 Dose: 2.5 mg Naloxone HCl (Narcan) 0.1 mg IV ASDIRECTED PRN PRN Reason: decreased respiratory rate Scopolamine Patch (Check) 1 each TOP DAILY [facility] Last Admin: 02/17/18 08:28 Dose: Not Given Admin: 02/16/18 18:42 Dose: Not Given Ondansetron HCl (Zofran) 4 mg IVPUSH Q4H PRN PRN Reason: NAUSEA Last Admin: 02/16/18 23:22 Dose: 4 mg Oxycodone/Acetaminophen (Percocet 325-5 Mg) 1 - 2 tab PO Q4H PRN PRN Reason: paiin Pantoprazole Sodium (Protonix Iv) 40 mg IV Q24H [facility] Last Admin: 02/16/18 18:48 Dose: 40 mg Scopolamine (Transderm-Scop) 1.5 mg TOP Q72H [facility] Last Admin: 02/16/18 09:06 Dose: 1.5 mg Ticagrelor (Brilinta) 90 mg PO BID [facility] Last Admin: 02/17/18 08:27 Dose: 90 mg - Assessment Assessment (Free Text/Narrative):: Post op ALIF - Plan Plan (Free Text/Narrative):: -We start pts home meds today at their current dosages -we will DC [employer] and start oral percocet for pain -Sen can be removed today -pt my start regular diet -will give pt collace
[2018-02-17] MEDS: Pantoprazole 40 MG Vial IV SCH (17:41)
[2018-02-18] MEDS: Dextrose 5%-Lactated Ringers 1,000 ML IV SCH (00:25)
[2018-02-18] MEDS: Gabapentin 300 MG Cap PO SCH (05:21)
[2018-02-18 07:55] VITALS: BP 149/78
[2018-02-18] MEDS: Insulin Detemir 100 Units/ML 3 ML Pen SUBCUT SCH (08:19)
[2018-02-18] MEDS: Insulin Aspart 100 Units/ML 3 ML Pen SUBCUT PRN (08:20)
[2018-02-18] MEDS: Aspirin 81 MG Tab.EC PO SCH (08:23)
[2018-02-18] MEDS: SCOPOLAMINE PATCH CHECK TOP SCH (08:23)
[2018-02-18] MEDS: Docusate Sodium 100 MG Cap PO SCH (08:23)
[2018-02-18] MEDS: Ticagrelor 90 MG Tab PO SCH (08:23)
[2018-02-18] MEDS: Lisinopril 2.5 MG Tab PO SCH (08:24)
--- NOTE | 2018-02-18 08:29 | PCM.PN ---
- General Info Functional Status: Reports: Pain Controlled - Review of Systems General: Reports: No Symptoms HEENT: Reports: No Symptoms Pulmonary: Reports: No Symptoms Cardiovascular: Reports: No Symptoms Gastrointestinal: Reports: No Symptoms Genitourinary: Reports: No Symptoms Musculoskeletal: Reports: Back Pain, Leg Pain Skin: Reports: No Symptoms Neurological: Reports: No Symptoms Psychiatric: Reports: No Symptoms - Patient Data Vitals - Most Recent: Last Vital Signs Temp 98.2 F 02/18/18 07:53 Pulse 94 02/18/18 07:53 Resp 18 02/18/18 07:53 BP 149/78 H 02/18/18 08:24 Pulse Ox 95 02/18/18 07:53 Weight - Most Recent: 185 lb 0.014 oz I&O - Last 24 Hours: Intake & Output 02/17/18 02/18/18 02/18/18 22:59 06:59 14:59 Intake Total 2386 1955 Output Total 1025 602 Balance 1361 1353 Med Orders - Current: Current Medications Aspirin (Halfprin) 81 mg PO DAILY [facility] Last Admin: 02/18/18 08:23 Dose: 81 mg Cyclobenzaprine HCl (Flexeril) 10 mg PO Q6H PRN PRN Reason: MUSCLE SPASM Cyclobenzaprine HCl (Flexeril) 10 mg PO TID PRN PRN Reason: Muscle Spasm Dextrose (Glutose 15) 15 gm PO ASDIRECTED PRN PRN Reason: HYPOGLYCEMIA Dextrose/Water (Dextrose 50% In Water) 50 ml IVPUSH ASDIRECTED PRN PRN Reason: HYPOGLYCEMIA Docusate Sodium (Colace) 100 mg PO BID [facility] Last Admin: 02/18/18 08:23 Dose: 100 mg Gabapentin (Neurontin) 600 mg PO QID [facility] Last Admin: 02/18/18 05:21 Dose: 600 mg Glucagon (Glucagen) 1 mg IM ASDIRECTED PRN PRN Reason: HYPOGLYCEMIA Hydroxyzine HCl (Vistaril) 100 mg IM Q4H PRN PRN Reason: PAIN Hydroxyzine HCl (Atarax) 100 mg PO Q4H PRN PRN Reason: PAIN Insulin Aspart (Novolog) 0 unit SUBCUT QID PRN; Protocol PRN Reason: LOW CORRECTIONAL DOSE Last Admin: 02/18/18 08:20 Dose: 1 units Insulin Detemir (Levemir) 20 unit SUBCUT BID [facility] Last Admin: 02/18/18 08:19 Dose: 20 units Lisinopril (Prinivil) 2.5 mg PO DAILY [facility] Last Admin: 02/18/18 08:24 Dose: 2.5 mg Naloxone HCl (Narcan) 0.1 mg IV ASDIRECTED PRN PRN Reason: decreased respiratory rate Scopolamine Patch (Check) 1 each TOP DAILY [facility] Last Admin: 02/18/18 08:23 Dose: 1 each Ondansetron HCl (Zofran) 4 mg IVPUSH Q4H PRN PRN Reason: NAUSEA Last Admin: 02/16/18 23:22 Dose: 4 mg Oxycodone/Acetaminophen (Percocet 325-5 Mg) 1 - 2 tab PO Q4H PRN PRN Reason: paiin Last Admin: 02/18/18 05:27 Dose: 2 tab Pantoprazole Sodium (Protonix Iv) 40 mg IV Q24H [facility] Last Admin: 02/17/18 17:41 Dose: 40 mg Scopolamine (Transderm-Scop) 1.5 mg TOP Q72H [facility] Last Admin: 02/16/18 09:06 Dose: 1.5 mg Ticagrelor (Brilinta) 90 mg PO BID [facility] Last Admin: 02/18/18 08:23 Dose: 90 mg Discontinued Medications Acetaminophen (Tylenol Extra Strength) 1,000 mg PO ONETIME ONE Stop: 02/16/18 08:31 Last Admin: 02/16/18 09:06 Dose: 1,000 mg Acetaminophen (Tylenol Extra Strength) 1,000 mg PO Q6H [facility] Last Admin: 02/17/18 05:54 Dose: 1,000 mg Aspirin (Halfprin) 81 mg PO DAILY [facility] Last Admin: 02/17/18 08:28 Dose: Not Given Cyclobenzaprine HCl (Flexeril) 10 mg PO Q8H PRN PRN Reason: MUSCLE SPASM Dexamethasone (Dexamethasone) Confirm Administered Dose 4 mg .ROUTE .STK-MED ONE Stop: 02/16/18 09:16 Fentanyl (Sublimaze) Confirm Administered Dose 250 mcg .ROUTE .STK-MED ONE Stop: 02/16/18 09:16 Fentanyl (Sublimaze) Confirm Administered Dose 250 mcg .ROUTE .STK-MED ONE Stop: 02/16/18 13:28 Fentanyl (Sublimaze) Confirm Administered Dose 250 mcg .ROUTE .STK-MED ONE Stop: 02/16/18 13:46 Fentanyl (Sublimaze) Confirm Administered Dose 250 mcg .ROUTE .STK-MED ONE Stop: 02/16/18 14:02 Fentanyl (Sublimaze) Confirm Administered Dose 250 mcg .ROUTE .STK-MED ONE Stop: 02/16/18 15:38 Gabapentin (Neurontin) 300 mg PO ONETIME ONE Stop: 02/16/18 08:31 Last Admin: 02/16/18 09:07 Dose: 300 mg Gabapentin (Neurontin) 300 mg PO TID [facility] Last Admin: 02/16/18 21:51 Dose: 300 mg Hydromorphone HCl (Dilaudid [employer] 15 Mg In Ns 30 Ml) 0 mg IV ASDIRECTED PRN; Protocol PRN Reason: Pain Last Admin: 02/16/18 10:43 Dose: 0.3 mg Hydroxyzine HCl (Vistaril) 100 mg IM ONETIME ONE Stop: 02/16/18 16:31 Last Admin: 02/16/18 17:31 Dose: 100 mg Cefazolin Sodium/Dextrose 2 gm (/ Premix) 50 mls @ 100 mls/hr IV ONETIME ONE Stop: 02/16/18 09:29 Last Admin: 02/16/18 12:59 Dose: 100 mls/hr Lactated Ringer's (Ringers, Lactated) 1,000 mls @ 100 mls/hr IV ASDIRECTED [facility] Last Admin: 02/16/18 09:07 Dose: 100 mls/hr Tranexamic Acid 900 mg/ Sodium (Chloride) 59 mls @ 236 mls/hr IV Q3H [facility] Stop: 02/16/18 13:14 Last Admin: 02/16/18 17:27 Dose: 236 mls/hr Ketamine HCl 100 mg/ Sodium (Chloride) 100 mls @ 20.58 mls/hr IV ASDIRECTED [facility] Linezolid (Zyvox) Confirm Administered Dose 100 mls @ as directed .ROUTE .STK- MED ONE Stop: 02/16/18 10:25 Lactated Ringer's (Ringers, Lactated) Confirm Administered Dose 1,000 mls @ as directed .ROUTE .STK-MED ONE Stop: 02/16/18 16:24 Cefazolin Sodium/Dextrose 2 gm (/ Premix) 50 mls @ 100 mls/hr IV Q8H [facility] Stop: 02/17/18 09:59 Last Admin: 02/17/18 10:28 Dose: 100 mls/hr Dextrose/Lactated Ringer's (Dextrose 5%-Lactated Ringers) 1,000 mls @ 150 mls/ hr IV ASDIRECTED [facility] Last Admin: 02/18/18 00:25 Dose: 150 mls/hr Insulin Aspart (Novolog) 1 unit SUBCUT ONETIME ONE Stop: 02/16/18 17:31 Last Admin: 02/16/18 17:20 Dose: 1 units Ketamine HCl (Ketalar) 34 mg IV ASDIRECTED [facility] Labetalol HCl (Normodyne) Confirm Administered Dose 20 mg .ROUTE .STK-MED ONE Stop: 02/16/18 16:08 Linezolid (Zyvox) 200 mg IRR .STK-MED ONE Stop: 02/16/18 15:09 Last Admin: 02/16/18 15:08 Dose: 200 mg Meropenem (Merrem) Confirm Administered Dose 500 mg .ROUTE .STK-MED ONE Stop: 02/16/18 15:46 Last Admin: 02/16/18 15:48 Dose: 500 mg Ondansetron HCl (Zofran) Confirm Administered Dose 4 mg .ROUTE .STK-MED ONE Stop: 02/16/18 09:16 Povidone Iodine (Betadine 10% Soln) Confirm Administered Dose 1 ml .ROUTE .STK- MED ONE Stop: 02/16/18 10:25 Propofol (Diprivan 20 Ml) Confirm Administered Dose 200 mg .ROUTE .STK-MED ONE Stop: 02/16/18 09:16 Propofol (Diprivan 20 Ml) Confirm Administered Dose 600 mg .ROUTE .STK-MED ONE Stop: 02/16/18 12:18 Propofol (Diprivan 20 Ml) Confirm Administered Dose 400 mg .ROUTE .STK-MED ONE Stop: 02/16/18 14:43 Propofol (Diprivan 20 Ml) Confirm Administered Dose 400 mg .ROUTE .STK-MED ONE Stop: 02/16/18 16:15 Rocuronium [place] (Zemuron) Confirm Administered Dose 50 mg .ROUTE .STK-MED ONE Stop: 02/16/18 09:16 Succinylcholine Chloride (Quelicin) Confirm Administered Dose 200 mg .ROUTE .STK -MED ONE Stop: 02/16/18 09:16 - Exam General: Alert, Oriented HEENT: Pupils Equal, Pupils Reactive, Mucous Membr. Moist/Cable Neck: Supple, Trachea Midline Back Exam: Normal Inspection Extremities: Normal Inspection, Normal Range of Motion Skin: Warm, Dry, Intact Wound/Incisions: Healing Well Neurological: No New Focal Deficit Psy/Mental Status: Alert, Normal Affect, Normal Mood - Problem List Review Problem List Initiated/Reviewed/Updated: Yes - My Orders Last 24 Hours: My Active Orders 02/18/18 11:30 GLUCOSE POC LAB TO COLLECT [POC] QIDACANDBED 02/18/18 16:30 GLUCOSE POC LAB TO COLLECT [POC] QIDACANDBED 02/18/18 21:00 GLUCOSE POC LAB TO COLLECT [POC] QIDACANDBED 02/19/18 07:30 GLUCOSE POC LAB TO COLLECT [POC] QIDACANDBED - Plan Plan:: assessment: Postoperative day #2 anterior lumbar interbody fusion L4-5 and L5- S1 Plan: Patient is been doing quite well. He has been walking without difficulty. His back and his legs feel much better. He will be discharged today per day and [place]. We will see him back in one month time.
--- NOTE | 2018-02-18 13:52 | PCM.DCSUM1 ---
Discharge Summary - Hospital Course HPI Initial Comments: Pt underwent ALIF surgery on levels L4-L5 and L5-S1 on 02/16/2018 for Lumbar stenosis L4-S1 Brief History: Pt underwent ALIF surgery on 02/16/2018 of levels L4-L5 and L5- S1. Pt was admitted to hospital and has done very well through the course of his stay. Post op day 1 pt was ambulating and put on a regular diet. Pts blood sugars were a bit high in the low 300's during his stay. Pt has no complaints other than incisional site pain which he is tolerating well with oral percocet. Pt was started back on his home meds yesterday. Pts incision is seen without erythma or drainage. Pts BILL tube only put out 5 ml last night. Pt has been passing gas but has not yet had a BM as of this morning. We discussed using OTC medications for constipation when he gets home. - Discharge Data Discharge Date: 02/18/18 Discharge Disposition: Home, Self-Care 01 Condition: Good - Discharge Diagnosis/Problem(s) (1) Lumbar discogenic pain syndrome SNOMED Code(s): 93083061 ICD Code: M51.26 - OTHER INTERVERTEBRAL DISC DISPLACEMENT, LUMBAR REGION Status: Chronic Current Visit: No (2) Lumbar foraminal stenosis SNOMED Code(s): 945911232249, [id number] ICD Code: M99.83 - OTHER BIOMECHANICAL LESIONS OF LUMBAR REGION Status: Chronic Current Visit: No (3) Status post lumbar spinal fusion SNOMED Code(s): 80858910863312, [id number], [id number] ICD Code: Z98.1 - ARTHRODESIS STATUS Status: Acute Current Visit: Yes Problem Details: ALIF l4 -L5, L5 -S1 - Patient Summary/Data Consults: Consultations 02/17/18 07:00 OT Evaluation and Treatment [CONS] Routine Please Evaluate and Treat. OT Reason for Consult: Other (Type Response) Pending Discharge: post op ortho surgery This query below is only for informational purposes and is not editable. PT Evaluation and Treatment [CONS] Routine Please Evaluate and Treat. PT Reason for Consult: Post op Ortho Surgery This query below is only for informational purposes and is not editable. 02/17/18 11:07 Respiratory Care Assess and Treatment [CONS] Routine Comment: Physician Instructions: - Patient Instructions Diet: Drink 8-10+ Glasses/Day, Diabetic Diet Activity: No Lifting Over 10 Pounds Activity, Other: As Directed By Dr. Sloan Dyson and Physical Therapy Driving: Do Not Drive Showering/Bathing: May Shower Wound/Incision Care: Keep Operative Site/Wound Site Clean and Dry Other/Special Instructions: 1. Use incentive inspirometer 10 times every hour while awake for 1 week. 2. Call Tia with Blood Sugars on 02/19/18 - Check blood sugars per your routine. - Discharge Plan Prescriptions/Med Rec: Acetaminophen/oxyCODONE [Percocet 325-5 MG] 1 - 2 tab PO Q4H PRN #40 tablet PRN Reason: Pain Docusate Sodium [Colace] 100 mg PO BID #100 cap Home Medications: Home Meds Aspirin [Halfprin] 81 mg PO DAILY 01/09/15 [History] Gabapentin [Neurontin] 600 mg PO QID 01/09/15 [History] Insulin Glarg,Human.Rec.Analog [Lantus] 20 unit SQ BID 01/09/15 [History] Cyclobenzaprine [Flexeril] 10 mg PO TID PRN 10/08/17 [History] Insulin Glargine,Hum.Rec.Anlog [Basaglar Kwikpen U-100] 20 unit SQ Q12HR [History] Ticagrelor [Brilinta] 90 mg PO BID 10/08/17 [History] Acetaminophen/oxyCODONE [Percocet 325-5 MG] 1 - 2 tab PO Q4H PRN #40 tablet [Rx] Docusate Sodium [Colace] 100 mg PO BID #100 cap 02/18/18 [Rx] Patient Handouts: Constipation, Adult, Percutaneous Endoscopic Jejunostomy, Care After, Incision Care, Adult Referrals: Chao Dyson DO [Physician] - 03/11/18 9:00 am (Per his direction ) Gal Dyson MD [Family Provider] - 03/03/18 10:00 am - General Info Date of Service: 02/18/18 Admission Dx/Problem (Free Text: Lumbar stenosis L4-L5 and L5-S1 Functional Status: Reports: Pain Controlled, Tolerating Diet, Ambulating, Urinating, Incentive Spirometry - Review of Systems General: Reports: No Symptoms Pulmonary: Reports: No Symptoms Cardiovascular: Reports: No Symptoms Gastrointestinal: Reports: Abdominal Pain Genitourinary: Reports: No Symptoms Musculoskeletal: Reports: No Symptoms Skin: Reports: No Symptoms Neurological: Reports: No Symptoms (Pt states he is doing very well and is ready to go home. Pt has no complaints other than some pain at incisional site) - Patient Data Vitals - Most Recent: Last Vital Signs Temp 36.8 C 02/18/18 07:53 Pulse 94 02/18/18 07:53 Resp 18 02/18/18 07:53 BP 149/78 H 02/18/18 08:24 Pulse Ox 95 02/18/18 07:53 Weight - Most Recent: 83.915 kg I&O - Last 24 hours: Intake & Output 02/17/18 02/18/18 02/18/18 22:59 06:59 14:59 Intake Total 2386 1955 Output Total 1025 602 Balance 1361 1353 Med Orders - Current: Current Medications Aspirin (Halfprin) 81 mg PO DAILY [facility] Last Admin: 02/18/18 08:23 Dose: 81 mg Cyclobenzaprine HCl (Flexeril) 10 mg PO Q6H PRN PRN Reason: MUSCLE SPASM Cyclobenzaprine HCl (Flexeril) 10 mg PO TID PRN PRN Reason: Muscle Spasm Dextrose (Glutose 15) 15 gm PO ASDIRECTED PRN PRN Reason: HYPOGLYCEMIA Dextrose/Water (Dextrose 50% In Water) 50 ml IVPUSH ASDIRECTED PRN PRN Reason: HYPOGLYCEMIA Docusate Sodium (Colace) 100 mg PO BID [facility] Last Admin: 02/18/18 08:23 Dose: 100 mg Gabapentin (Neurontin) 600 mg PO QID [facility] Last Admin: 02/18/18 05:21 Dose: 600 mg Glucagon (Glucagen) 1 mg IM ASDIRECTED PRN PRN Reason: HYPOGLYCEMIA Hydroxyzine HCl (Vistaril) 100 mg IM Q4H PRN PRN Reason: PAIN Hydroxyzine HCl (Atarax) 100 mg PO Q4H PRN PRN Reason: PAIN Insulin Aspart (Novolog) 0 unit SUBCUT QID PRN; Protocol PRN Reason: LOW CORRECTIONAL DOSE Last Admin: 02/18/18 08:20 Dose: 1 units Insulin Detemir (Levemir) 20 unit SUBCUT BID [facility] Last Admin: 02/18/18 08:19 Dose: 20 units Lisinopril (Prinivil) 2.5 mg PO DAILY [facility] Last Admin: 02/18/18 08:24 Dose: 2.5 mg Naloxone HCl (Narcan) 0.1 mg IV ASDIRECTED PRN PRN Reason: decreased respiratory rate Scopolamine Patch (Check) 1 each TOP DAILY [facility] Last Admin: 02/18/18 08:23 Dose: 1 each Ondansetron HCl (Zofran) 4 mg IVPUSH Q4H PRN PRN Reason: NAUSEA Last Admin: 02/16/18 23:22 Dose: 4 mg Oxycodone/Acetaminophen (Percocet 325-5 Mg) 1 - 2 tab PO Q4H PRN PRN Reason: paiin Last Admin: 02/18/18 05:27 Dose: 2 tab Pantoprazole Sodium (Protonix Iv) 40 mg IV Q24H [facility] Last Admin: 02/17/18 17:41 Dose: 40 mg Scopolamine (Transderm-Scop) 1.5 mg TOP Q72H [facility] Last Admin: 02/16/18 09:06 Dose: 1.5 mg Ticagrelor (Brilinta) 90 mg PO BID [facility] Last Admin: 02/18/18 08:23 Dose: 90 mg Discontinued Medications Acetaminophen (Tylenol Extra Strength) 1,000 mg PO ONETIME ONE Stop: 02/16/18 08:31 Last Admin: 02/16/18 09:06 Dose: 1,000 mg Acetaminophen (Tylenol Extra Strength) 1,000 mg PO Q6H [facility] Last Admin: 02/17/18 05:54 Dose: 1,000 mg Aspirin (Halfprin) 81 mg PO DAILY [facility] Last Admin: 02/17/18 08:28 Dose: Not Given Cyclobenzaprine HCl (Flexeril) 10 mg PO Q8H PRN PRN Reason: MUSCLE SPASM Dexamethasone (Dexamethasone) Confirm Administered Dose 4 mg .ROUTE .STK-MED ONE Stop: 02/16/18 09:16 Fentanyl (Sublimaze) Confirm Administered Dose 250 mcg .ROUTE .STK-MED ONE Stop: 02/16/18 09:16 Fentanyl (Sublimaze) Confirm Administered Dose 250 mcg .ROUTE .STK-MED ONE Stop: 02/16/18 13:28 Fentanyl (Sublimaze) Confirm Administered Dose 250 mcg .ROUTE .STK-MED ONE Stop: 02/16/18 13:46 Fentanyl (Sublimaze) Confirm Administered Dose 250 mcg .ROUTE .STK-MED ONE Stop: 02/16/18 14:02 Fentanyl (Sublimaze) Confirm Administered Dose 250 mcg .ROUTE .STK-MED ONE Stop: 02/16/18 15:38 Gabapentin (Neurontin) 300 mg PO ONETIME ONE Stop: 02/16/18 08:31 Last Admin: 02/16/18 09:07 Dose: 300 mg Gabapentin (Neurontin) 300 mg PO TID [facility] Last Admin: 02/16/18 21:51 Dose: 300 mg Hydromorphone HCl (Dilaudid Carpet Technician 15 Mg In Ns 30 Ml) 0 mg IV ASDIRECTED PRN; Protocol PRN Reason: Pain Last Admin: 02/16/18 10:43 Dose: 0.3 mg Hydroxyzine HCl (Vistaril) 100 mg IM ONETIME ONE Stop: 02/16/18 16:31 Last Admin: 02/16/18 17:31 Dose: 100 mg Cefazolin Sodium/Dextrose 2 gm (/ Premix) 50 mls @ 100 mls/hr IV ONETIME ONE Stop: 02/16/18 09:29 Last Admin: 02/16/18 12:59 Dose: 100 mls/hr Lactated Ringer's (Ringers, Lactated) 1,000 mls @ 100 mls/hr IV ASDIRECTED [facility] Last Admin: 02/16/18 09:07 Dose: 100 mls/hr Tranexamic Acid 900 mg/ Sodium (Chloride) 59 mls @ 236 mls/hr IV Q3H [facility] Stop: 02/16/18 13:14 Last Admin: 02/16/18 17:27 Dose: 236 mls/hr Ketamine HCl 100 mg/ Sodium (Chloride) 100 mls @ 20.58 mls/hr IV ASDIRECTED [facility] Linezolid (Zyvox) Confirm Administered Dose 100 mls @ as directed .ROUTE .STK- MED ONE Stop: 02/16/18 10:25 Lactated Ringer's (Ringers, Lactated) Confirm Administered Dose 1,000 mls @ as directed .ROUTE .STK-MED ONE Stop: 02/16/18 16:24 Cefazolin Sodium/Dextrose 2 gm (/ Premix) 50 mls @ 100 mls/hr IV Q8H [facility] Stop: 02/17/18 09:59 Last Admin: 02/17/18 10:28 Dose: 100 mls/hr Dextrose/Lactated Ringer's (Dextrose 5%-Lactated Ringers) 1,000 mls @ 150 mls/ hr IV ASDIRECTED [facility] Last Admin: 02/18/18 00:25 Dose: 150 mls/hr Insulin Aspart (Novolog) 1 unit SUBCUT ONETIME ONE Stop: 02/16/18 17:31 Last Admin: 02/16/18 17:20 Dose: 1 units Ketamine HCl (Ketalar) 34 mg IV ASDIRECTED [facility] Labetalol HCl (Normodyne) Confirm Administered Dose 20 mg .ROUTE .STK-MED ONE Stop: 02/16/18 16:08 Linezolid (Zyvox) 200 mg IRR .STK-MED ONE Stop: 02/16/18 15:09 Last Admin: 02/16/18 15:08 Dose: 200 mg Meropenem (Merrem) Confirm Administered Dose 500 mg .ROUTE .STK-MED ONE Stop: 02/16/18 15:46 Last Admin: 02/16/18 15:48 Dose: 500 mg Ondansetron HCl (Zofran) Confirm Administered Dose 4 mg .ROUTE .STK-MED ONE Stop: 02/16/18 09:16 Povidone Iodine (Betadine 10% Soln) Confirm Administered Dose 1 ml .ROUTE .STK- MED ONE Stop: 02/16/18 10:25 Propofol (Diprivan 20 Ml) Confirm Administered Dose 200 mg .ROUTE .STK-MED ONE Stop: 02/16/18 09:16 Propofol (Diprivan 20 Ml) Confirm Administered Dose 600 mg .ROUTE .STK-MED ONE Stop: 02/16/18 12:18 Propofol (Diprivan 20 Ml) Confirm Administered Dose 400 mg .ROUTE .STK-MED ONE Stop: 02/16/18 14:43 Propofol (Diprivan 20 Ml) Confirm Administered Dose 400 mg .ROUTE .STK-MED ONE Stop: 02/16/18 16:15 Rocuronium [place] (Zemuron) Confirm Administered Dose 50 mg .ROUTE .STK-MED ONE Stop: 02/16/18 09:16 Succinylcholine Chloride (Quelicin) Confirm Administered Dose 200 mg .ROUTE .STK -YaKlass ONE Stop: 02/16/18 09:16 - Exam General: Reports: Alert, Oriented, Cooperative, No Acute Distress HEENT: Reports: Pupils Equal, EOMI Lungs: Reports: Clear to Auscultation, Normal Respiratory Effort Cardiovascular: Reports: Regular Rate, Regular Rhythm, No Murmurs GI/Abdominal Exam: Soft Skin: Reports: Warm, Dry Wound/Incisions: Reports: Healing Well (Pts incision is seen without erythema or drainage. Pts BILL tube had minimal drainage at 5 ml through the night last night) Neurological: Reports: No New Focal Deficit, Normal Speech Psy/Mental Status: Reports: Alert, Normal Affect, Normal Mood
== END 2018-02-18 10:00 | disposition home or self-care (01) | DRG 460 ==
LOC: UNDOADMIN 08:35 → JP.SDSSCHI 08:35 → JP.SDS 08:36 → EDSTATUS 09:00 → JP.MS 18:00 → JP.SDSSCHI 18:00
PROVIDERS: ADMIT Orthopaedic Surgery; ATTEND Orthopaedic Surgery
PROC: 0SG10A0 Fusion of 2 or more Lumbar Vertebral Joints with Interbody Fusion Device, Anterior Approach, Anterior Column, Open Approach (ICD-10-PCS; principal; 2018-02-16)
PROC: 0ST20ZZ Resection of Lumbar Vertebral Disc, Open Approach (ICD-10-PCS; 2018-02-16)
DX: M51.26 Other intervertebral disc displacement, lumbar region (principal); M48.061 Spinal stenosis, lumbar region without neurogenic claudication; M99.83 Other biomechanical lesions of lumbar region; I10 Essential (primary) hypertension; I25.10 Atherosclerotic heart disease of native coronary artery without angina pectoris; I25.2 Old myocardial infarction; Z95.1 Presence of aortocoronary bypass graft; Z95.5 Presence of coronary angioplasty implant and graft; M54.9 Dorsalgia, unspecified; G89.29 Other chronic pain; E11.9 Type 2 diabetes mellitus without complications; Z79.4 Long term (current) use of insulin; Z79.82 Long term (current) use of aspirin; Z79.01 Long term (current) use of anticoagulants; Z88.5 Allergy status to narcotic agent; Z88.2 Allergy status to sulfonamides; Z96.659 Presence of unspecified artificial knee joint
CPT/HCPCS: 36415; 76001; 82962; 86850; 86900; 86901; 86920; 86922; 94762; 97161-GP; 97530-GP; A9270-GY; C1713; C9113; J0171; J0330; J0690; J0735; J1100; J1170; J1885; J2020; J2185; J2405; J2704; J2795; J3010; J3410; J7030; J7042; J7050; J7120

== ENCOUNTER 2018-02-23 06:00 | Emergency (ER) | payer MEDICAID ==
[2018-02-23] MEDS: Prochlorperazine 10 MG/2 ML SDV IVPUSH ONE (06:27)
[2018-02-23] MEDS ORDERED: Sodium Chloride 0.9% 10 ML Syringe FLUSH PRN (06:28)
--- NOTE | 2018-02-23 06:32 | EDM.PDOC ---
<OfficerGil - Last Filed: 02/23/18 06:27> ED HPI GENERAL MEDICAL PROBLEM - General Chief Complaint: General Stated Complaint: MEDICAL [facility] Time Seen by Provider: 02/23/18 06:20 Source of Information: Reports: Patient, Family, Old Records, RN Notes Reviewed History Limitations: Reports: No Limitations (Overall) - History of Present Illness INITIAL COMMENTS - FREE TEXT/NARRATIVE: 57-year-old gentleman presents to the emergency department today complaint of nausea and vomiting he arrives via EMS services. He recently underwent lumbar surgery anterior approach approximately 4 days prior he states his back pain has improved but has had ongoing difficulty with severe nausea and vomiting unable to keep food products down he does use Zofran but he still vomiting through that, no shortness of breath no chest pain - Related Data Allergies Allergy/AdvReac Type Severity Reaction Status Date / Time hydrocodone Allergy Nausea and Verified 02/23/18 06:02 Vomiting morphine AdvReac Nausea and Verified 02/16/18 09:02 Vomiting Sulfa (Sulfonamide AdvReac Nausea and Verified 02/16/18 09:02 Antibiotics) Vomiting Home Meds: Home Meds Aspirin [Halfprin] 81 mg PO DAILY 01/09/15 [History] Gabapentin [Neurontin] 600 mg PO QID 01/09/15 [History] Insulin Glarg,Human.Rec.Analog [Lantus] 20 unit SQ BID 01/09/15 [History] Cyclobenzaprine [Flexeril] 10 mg PO TID PRN 10/08/17 [History] Insulin Glargine,Hum.Rec.Anlog [Basaglar Kwikpen U-100] 20 unit SQ Q12HR [History] Ticagrelor [Brilinta] 90 mg PO BID 10/08/17 [History] Docusate Sodium [Colace] 100 mg PO BID #100 cap 02/18/18 [Rx] Past Medical History Cardiovascular History: Reports: CAD, High Cholesterol, Hypertension, [place], Other (See Below) Other Cardiovascular History: CABG X3 IN 2014 Gastrointestinal History: Reports: Cholelithiasis Musculoskeletal History: Reports: Back Pain, Chronic Neurological History: Reports: Concussion Psychiatric History: Reports: Bipolar Endocrine/Metabolic History: Reports: Diabetes, Type II, IDDM - Infectious Disease History Infectious Disease History: Reports: Chicken Pox - Past Surgical History HEENT Surgical History: Reports: Adenoidectomy, Myringotomy w Tube(s) Cardiovascular Surgical History: Reports: Coronary Artery Bypass, Coronary Artery Stent GI Surgical History: Reports: Cholecystectomy, Hernia, Abdominal Male Surgical History: Reports: Circumcision, Vasectomy Endocrine Surgical History: Reports: None Neurological Surgical History: Reports: Lumbar Spine Musculoskeletal Surgical History: Reports: Arthroscopic Knee, Knee Replacement, Shoulder Surgery, Other (See Below) Other Musculoskeletal Surgeries/Procedures:: back surgery, multiple left leg surgery, left and right shoulder surgerys. recent L2,L3,L4 fussion through abd was just discharged on Social & Family History - Family History Family Medical History: Noncontributory Cardiac: Reports: Heart Failure, [place] Neurological: Reports: None Oncologic: Reports: Pancreatic - Tobacco Use Smoking Status *Q: Never Smoker Second Hand Smoke Exposure: No - Caffeine Use Caffeine Use: Reports: None Other Caffeine Use: diet - Alcohol Use Days Per Week of Alcohol Use: 0 - Recreational Drug Use Recreational Drug Use: Yes Recreational Drug Type: Reports: Marijuana/Hashish Recreational Drug Use Frequency: Rarely ED ROS GENERAL - Review of Systems Review Of Systems: See Below Constitutional: Denies: Fever, Chills HEENT: Reports: No Symptoms Respiratory: Reports: No Symptoms Cardiovascular: Reports: No Symptoms GI/Abdominal: Reports: Abdominal Pain (From vomiting), Nausea, Vomiting : Reports: No Symptoms Musculoskeletal: Reports: No Symptoms Skin: Reports: No Symptoms Neurological: Reports: No Symptoms ED EXAM, GENERAL - Physical Exam Exam: See Below Exam Limited By: No Limitations General Appearance: Alert, Mild Distress Head: Atraumatic, Normocephalic Neck: Normal Inspection, Supple, Non-Tender, Full Range of Motion Respiratory/Chest: No Respiratory Distress, Lungs Clear, Normal Breath Sounds, No Accessory Muscle Use Cardiovascular: Regular Rate, Rhythm, No Murmur GI/Abdominal: Soft, Non-Tender Back Exam: Normal Inspection, Full Range of Motion. No: CVA Tenderness (R), CVA Tenderness (L) Extremities: Normal Range of Motion, Non-Tender, No Pedal Edema Neurological: Alert, Oriented Course - Vital Signs Last Recorded V/S: Last Vital Signs Temp 36.0 C 02/23/18 07:22 Pulse 97 02/23/18 07:22 Resp 14 02/23/18 07:22 BP 129/66 02/23/18 07:22 Pulse Ox 98 02/23/18 07:22 - Orders/Labs/Meds Orders: Active Orders 24 hr Category Date Time Status Peripheral IV Care [RC] . DIRECTED Care 02/23/18 06:28 Active UA W/MICROSCOPIC [URIN] Urgent Lab 02/23/18 06:28 Ordered Lactated Ringers [Ringers, Lactated] 1,000 ml Med 02/23/18 06:30 Active IV ASDIRECTED Sodium Chloride 0.9% [Normal Saline] 1,000 ml Med 02/23/18 07:45 Active IV ASDIRECTED Sodium Chloride 0.9% [Saline Flush] Med 02/23/18 06:28 Active 10 ml FLUSH ASDIRECTED PRN Peripheral IV Insertion Adult [OM.PC] Urgent Oth 02/23/18 06:28 Ordered Medication Orders Lactated Ringer's (Ringers, Lactated) 1,000 mls @ 999 mls/hr IV ASDIRECTED EMERSON Last Admin: 02/23/18 06:41 Dose: 999 mls/hr Sodium Chloride (Normal Saline) 1,000 mls @ 999 mls/hr IV ASDIRECTED EMERSON Last Admin: 02/23/18 07:48 Dose: 999 mls/hr Sodium Chloride (Saline Flush) 10 ml FLUSH ASDIRECTED PRN PRN Reason: Keep Vein Open Labs: Laboratory Tests 02/23/18 02/23/18 02/23/18 Range/Units 06:28 06:41 06:41 WBC 11.6 H (4.5-11.0) K/uL RBC 3.51 L (4.30-5.90) M/uL Hgb 9.3 L D (12.0-15.0) g/dL Hct 27.5 L (40.0-54.0) % MCV 78 L (80-98) fL MCH 27 (27-31) pg MCHC 34 (32-36) % Plt Count 373 (150-400) K/uL Neut % (Auto) 79 H (36-66) % Lymph % (Auto) 11 L (24-44) % [place] % (Auto) 8 H (2-6) % Eos % (Auto) 1 L (2-4) % Baso % (Auto) 0 (0-1) % Sodium 141 (140-148) mmol/L Potassium 3.2 L (3.6-5.2) mmol/L Chloride 104 (100-108) mmol/L Carbon Dioxide 23 (21-32) mmol/L Anion Gap 17.2 H (5.0-14.0) mmol/L BUN 19 H (7-18) mg/dL Creatinine 0.8 (0.8-1.3) mg/dL Est Cr Clr Drug Dosing 100.65 mL/min Estimated GFR (MDRD) > 60 (>60) Glucose 183 H (74-106) mg/dL Lactic Acid (0.4-2.0) mmol/L Calcium 8.4 L (8.5-10.1) mg/dL Total Bilirubin 1.3 H D (0.2-1.0) mg/dL AST 29 (15-37) U/L ALT 36 (12-78) U/L Alkaline Phosphatase 93 (46-116) U/L Troponin I < 0.017 (0.000-0.056) ng/mL Total Protein 6.5 (6.4-8.2) g/dL Albumin 2.5 L (3.4-5.0) g/dL Globulin 4.0 H (2.3-3.5) g/dL Albumin/Globulin Ratio 0.6 L (1.2-2.2) Lipase 102 (73-393) U/L Urine Color Yellow Urine Appearance Slightly cloudy Urine pH 9.0 H (4.5-8.0) Ur Specific [place] 1.010 (1.008-1.030) Urine Protein Negative (NEGATIVE) mg/dL Urine Glucose (UA) 50 H (NEGATIVE) mg/dL Urine Ketones 50 H (NEGATIVE) mg/dL Urine Occult Blood Negative (NEGATIVE) Urine Nitrite Negative (NEGAITVE) Urine Bilirubin Negative (NEGATIVE) Urine Urobilinogen Normal (NORMAL) mg/dL Ur Leukocyte Esterase Negative (NEGATIVE) Urine RBC 0-5 (0-5) Urine WBC Not seen (0-5) Ur Epithelial Cells Not seen Amorphous Sediment Not seen Urine Bacteria Not seen Urine Mucus Few 02/23/18 Range/Units 06:41 WBC (4.5-11.0) K/uL RBC (4.30-5.90) M/uL Hgb (12.0-15.0) g/dL Hct (40.0-54.0) % MCV (80-98) fL MCH (27-31) pg MCHC (32-36) % Plt Count (150-400) K/uL Neut % (Auto) (36-66) % Lymph % (Auto) (24-44) % [place] % (Auto) (2-6) % Eos % (Auto) (2-4) % Baso % (Auto) (0-1) % Sodium (140-148) mmol/L Potassium (3.6-5.2) mmol/L Chloride (100-108) mmol/L Carbon Dioxide (21-32) mmol/L Anion Gap (5.0-14.0) mmol/L BUN (7-18) mg/dL Creatinine (0.8-1.3) mg/dL Est Cr Clr Drug Dosing mL/min Estimated GFR (MDRD) (>60) Glucose (74-106) mg/dL Lactic Acid 2.8 H (0.4-2.0) mmol/L Calcium (8.5-10.1) mg/dL Total Bilirubin (0.2-1.0) mg/dL AST (15-37) U/L ALT (12-78) U/L Alkaline Phosphatase (46-116) U/L Troponin I (0.000-0.056) ng/mL Total Protein (6.4-8.2) g/dL Albumin (3.4-5.0) g/dL Globulin (2.3-3.5) g/dL Albumin/Globulin Ratio (1.2-2.2) Lipase (73-393) U/L Urine Color Urine Appearance Urine pH (4.5-8.0) Ur Specific [place] (1.008-1.030) Urine Protein (NEGATIVE) mg/dL Urine Glucose (UA) (NEGATIVE) mg/dL Urine Ketones (NEGATIVE) mg/dL Urine Occult Blood (NEGATIVE) Urine Nitrite (NEGAITVE) Urine Bilirubin (NEGATIVE) Urine Urobilinogen (NORMAL) mg/dL Ur Leukocyte Esterase (NEGATIVE) Urine RBC (0-5) Urine WBC (0-5) Ur Epithelial Cells Amorphous Sediment Urine Bacteria Urine Mucus Meds: Medications Generic Name Dose Route Start Last Admin Trade Name Freq PRN Reason Stop Dose Admin Lactated Ringer's 1,000 mls @ 999 mls/hr 02/23/18 06:30 02/23/18 06:41 Ringers, Lactated IV 999 mls/hr ASDIRECTED EMERSON Administration Sodium Chloride 1,000 mls @ 999 mls/hr 02/23/18 07:45 02/23/18 07:48 Normal Saline IV 999 mls/hr ASDIRECTED EMERSON Administration Sodium Chloride 10 ml 02/23/18 06:28 Saline Flush FLUSH ASDIRECTED PRN Keep Vein Open Discontinued Medications Generic Name Dose Route Start Last Admin Trade Name Marcin PRN Reason Stop Dose Admin Lorazepam 1 mg 02/23/18 06:45 02/23/18 06:51 Ativan IVPUSH 02/23/18 06:46 1 mg ONETIME ONE Administration Prochlorperazine Edisylate 5 mg 02/23/18 06:24 02/23/18 06:27 Compazine IVPUSH 02/23/18 06:25 5 mg ONETIME ONE Administration Departure - Departure Disposition: Home, Self-Care 01 Clinical Impression: Adverse effects of medication, Dehydration - Discharge Information Referrals: PCP,None [Primary Care Provider] - Forms: ED Department Discharge Care Plan Goals: stop the percocet , pt feels that the gabapentin will be adequate for pain control, rtc if further problems. - My Orders Last 24 Hours: My Active Orders 02/23/18 07:45 Sodium Chloride 0.9% [Normal Saline] 1,000 ml IV ASDIRECTED - Assessment/Plan Last 24 Hours: My Active Orders 02/23/18 07:45 Sodium Chloride 0.9% [Normal Saline] 1,000 ml IV ASDIRECTED <Liliane Watkins - Last Filed: 02/23/18 08:58> Course - Re-Assessments/Exams Free Text/Narrative Re-Assessment/Exam: 02/23/18 07:50 pt is doing much btter after the ativan and compazine. He will be given a second liter of fluid. He will be tried on some clear liquids and see if he can tolerate them. I believe the percocet may be the cause of the nausea. 02/23/18 08:55 I did discuss with the pt regarding his pain. He does not feel he needs further narcotics. He will use the gabapentin for pain. Departure - Departure Time of Disposition: 08:56 Condition: Fair
[2018-02-23] MEDS: Lactated Ringers 1,000 ML IV SCH (06:41)
[2018-02-23] MEDS: LORazepam 2 MG/ML SDV IVPUSH ONE (06:51)
[2018-02-23 07:23] VITALS: BP 129/66
[2018-02-23] MEDS: Sodium Chloride 0.9% 1,000 ML IV SCH (07:48)
== END 2018-02-23 09:05 | disposition home or self-care (01) ==
LOC: JP.ED 06:00
DX: E86.0 Dehydration (principal); T50.905A Adverse effect of unspecified drugs, medicaments and biological substances, initial encounter; I25.2 Old myocardial infarction; I10 Essential (primary) hypertension; E11.9 Type 2 diabetes mellitus without complications; Z88.2 Allergy status to sulfonamides; Z88.5 Allergy status to narcotic agent; Z79.82 Long term (current) use of aspirin; Z79.899 Other long term (current) drug therapy
CPT/HCPCS: 36415; 80053; 81001; 83605; 83690; 84484; 85025; 96361; 96374; 96375; 99284; J0780; J2060; J7040; J7120

== ENCOUNTER 2018-03-02 21:26 | Emergency (ER) | payer MEDICAID ==
[2018-03-02 21:38] VITALS: BP 118/71
--- NOTE | 2018-03-02 23:02 | EDM.PDOC ---
ED HPI GENERAL MEDICAL PROBLEM - General Chief Complaint: Skin Complaint Stated Complaint: BLEEDING FROM INCISION Time Seen by Provider: 03/02/18 22:49 Source of Information: Reports: Patient, Family, RN Notes Reviewed History Limitations: Reports: No Limitations - History of Present Illness INITIAL COMMENTS - FREE TEXT/NARRATIVE: 57-year-old gentleman presents to the emergency department today with complaint of bleeding from his incision site, recently underwent lumbar surgery anterior approach clean dry and intact capillary intact however he is draining dark red blood from the lower portion of the incision site, no other complaints Treatments [employer]: Reports: Dressing(s) - Related Data Allergies Allergy/AdvReac Type Severity Reaction Status Date / Time hydrocodone Allergy Nausea and Verified 02/23/18 06:02 Vomiting oxycodone Allergy Nausea and Verified 03/02/18 22:15 Vomiting morphine AdvReac Nausea and Verified 02/16/18 09:02 Vomiting Sulfa (Sulfonamide AdvReac Nausea and Verified 02/16/18 09:02 Antibiotics) Vomiting Home Meds: Home Meds Aspirin [Halfprin] 81 mg PO DAILY 01/09/15 [History] Gabapentin [Neurontin] 600 mg PO QID 01/09/15 [History] Insulin Glarg,Human.Rec.Analog [Lantus] 20 unit SQ BID 01/09/15 [History] Cyclobenzaprine [Flexeril] 10 mg PO TID PRN 10/08/17 [History] Insulin Glargine,Hum.Rec.Anlog [Basaglar Kwikpen U-100] 20 unit SQ Q12HR [History] Ticagrelor [Brilinta] 90 mg PO BID 10/08/17 [History] Docusate Sodium [Colace] 100 mg PO BID #100 cap 02/18/18 [Rx] Past Medical History Cardiovascular History: Reports: CAD, High Cholesterol, Hypertension, [place], Other (See Below) Other Cardiovascular History: CABG X3 IN 2015 Gastrointestinal History: Reports: Cholelithiasis Musculoskeletal History: Reports: Back Pain, Chronic Neurological History: Reports: Concussion Psychiatric History: Reports: Bipolar Endocrine/Metabolic History: Reports: Diabetes, Type II, IDDM - Infectious Disease History Infectious Disease History: Reports: Chicken Pox - Past Surgical History HEENT Surgical History: Reports: Adenoidectomy, Myringotomy w Tube(s) Cardiovascular Surgical History: Reports: Coronary Artery Bypass, Coronary Artery Stent GI Surgical History: Reports: Cholecystectomy, Hernia, Abdominal Male Surgical History: Reports: Circumcision, Vasectomy Endocrine Surgical History: Reports: None Neurological Surgical History: Reports: Lumbar Spine Musculoskeletal Surgical History: Reports: Arthroscopic Knee, Knee Replacement, Shoulder Surgery, Other (See Below) Other Musculoskeletal Surgeries/Procedures:: back surgery, multiple left leg surgery, left and right shoulder surgerys. recent L2,L3,L4 fussion through abd was just discharged on Social & Family History - Family History Family Medical History: Noncontributory Cardiac: Reports: Heart Failure, [place] Neurological: Reports: None Oncologic: Reports: Pancreatic - Tobacco Use Smoking Status *Q: Never Smoker Second Hand Smoke Exposure: No - Caffeine Use Caffeine Use: Reports: None Other Caffeine Use: diet - Alcohol Use Days Per Week of Alcohol Use: 0 - Recreational Drug Use Recreational Drug Use: Yes Recreational Drug Type: Reports: Marijuana/Hashish Recreational Drug Use Frequency: Rarely ED ROS GENERAL - Review of Systems Review Of Systems: See Below Constitutional: Reports: No Symptoms HEENT: Reports: No Symptoms Respiratory: Reports: No Symptoms Cardiovascular: Reports: No Symptoms GI/Abdominal: Reports: No Symptoms : Reports: No Symptoms Skin: Reports: Wound ED EXAM, SKIN/RASH Exam: See Below Exam Limited By: No Limitations General Appearance: Alert, WD/WN, No Apparent Distress GI/Abdominal: Soft, Non-Tender Skin: Warm, Dry, Intact, Other (Surgical wounds clean dry intact dark red blood present and draining of the surgical wound) Course - Vital Signs Last Recorded V/S: Last Vital Signs Temp 99.5 F 03/02/18 22:13 Pulse 121 H 03/02/18 22:13 Resp 16 03/02/18 22:13 BP 118/71 03/02/18 22:13 Pulse Ox 96 03/02/18 22:13 - Orders/Labs/Meds Labs: Laboratory Tests 03/02/18 03/02/18 03/02/18 Range/Units 22:58 23:05 23:05 WBC 13.6 H (4.5-11.0) K/uL RBC 3.88 L (4.30-5.90) M/uL Hgb 10.0 L (12.0-15.0) g/dL Hct 31.4 L (40.0-54.0) % MCV 81 (80-98) fL MCH 26 L (27-31) pg MCHC 32 (32-36) % Plt Count 498 H (150-400) K/uL Neut % (Auto) 78 H (36-66) % Lymph % (Auto) 12 L (24-44) % [place] % (Auto) 8 H (2-6) % Eos % (Auto) 3 (2-4) % Baso % (Auto) 0 (0-1) % Sodium 139 L (140-148) mmol/L Potassium 4.1 (3.6-5.2) mmol/L Chloride 103 (100-108) mmol/L Carbon Dioxide 28 (21-32) mmol/L Anion Gap 12.1 (5.0-14.0) mmol/L BUN 15 (7-18) mg/dL Creatinine 0.9 (0.8-1.3) mg/dL Est Cr Clr Drug Dosing 89.47 mL/min Estimated GFR (MDRD) > 60 (>60) Glucose 215 H (74-106) mg/dL Lactic Acid 1.4 (0.4-2.0) mmol/L Calcium 8.9 (8.5-10.1) mg/dL Departure - Departure Time of Disposition: 23:58 Disposition: Home, Self-Care 01 Condition: Good Clinical Impression: Surgical wound breakdown Qualifiers: Encounter type: initial encounter Qualified Code(s): T81.31XA - Disruption of external operation (surgical) wound, not elsewhere classified, initial encounter - Discharge Information Referrals: Gilberto Cage MD [Primary Care Provider] - Forms: ED Department Discharge Additional Instructions: Please report to Dr. Dyson's clinic tomorrow morning at 10 AM, call or return to the emergency department worsening of symptoms - Assessment/Plan Plan: Assessment Acuity = acute Site and laterality = bleeding from surgical incision site Etiology = unclear etiology Manifestations = none Location of injury = Home Lab values = WBC elevated at 13.6 consistent leukocytosis, hemoglobin low at 10.0 consistent with normochromic anemia lactic acid normal at 1.4 Plan Called and discussed the case with Dr. Dyson general surgery, he agreed to evaluate the patient in his clinic tomorrow morning he has appointment at 10:00 at which time the wound will be opened and explored This note was dictated using [employer] voice recognition software please call with any questions on syntax or teresa.
== END 2018-03-03 00:11 | disposition home or self-care (01) ==
LOC: JP.ED 21:26
DX: T81.31XA Disruption of external operation (surgical) wound, not elsewhere classified, initial encounter (principal); I10 Essential (primary) hypertension; E78.00 Pure hypercholesterolemia, unspecified; I25.2 Old myocardial infarction; E11.9 Type 2 diabetes mellitus without complications; Z79.82 Long term (current) use of aspirin; Z79.4 Long term (current) use of insulin; Z88.5 Allergy status to narcotic agent; Z88.2 Allergy status to sulfonamides
CPT/HCPCS: 36415; 80048; 83605; 85025; 99283

== ENCOUNTER 2019-01-04 05:46 | Day surgery (SDC) | payer MEDICAID ==
[2019-01-04] MEDS ORDERED: Dextrose 5%-Lactated Ringers 1,000 ML IV SCH (06:30)
[2019-01-04] MEDS ORDERED: Midazolam 1 MG/ML 2 ML SDV ONE (07:12)
[2019-01-04] MEDS ORDERED: fentaNYL 100 MCG/2 ML SDV ONE (07:12)
[2019-01-04] MEDS ORDERED: Propofol 200 MG/20 ML SDV ONE ×2 (07:12→08:01)
[2019-01-04] MEDS ORDERED: Ondansetron 4 MG/2 ML SDV ONE (07:13)
[2019-01-04] MEDS ORDERED: Dexamethasone 4 MG/ML SDV ONE (07:13)
[2019-01-04] MEDS ORDERED: Scopolamine 1.5 MG Transdermal Patch TOP ONE (07:15)
[2019-01-04 11:59] VITALS: BP 156/88
--- NOTE | 2019-01-10 15:20 | OR ---
DATE OF PROCEDURE: 01/04/2019 PREOPERATIVE DIAGNOSIS: Nausea, bloating, epigastric discomfort, and weight loss. POSTOPERATIVE DIAGNOSES: 1. Nausea, bloating, epigastric discomfort, and weight loss. 2. Large amount of retained bile in the stomach associated with mild antral gastritis. PROCEDURE: Esophagogastroduodenoscopy with antral biopsies for CLOtest. ANESTHESIA: IV sedation. INDICATION FOR PROCEDURE: This is a 58-year-old with a longstanding history of type 2 diabetes, presenting with progressive problems with nausea, bloating, and weight loss along with some epigastric discomfort. He presently is not on any antisecretory medications. The plan is to proceed with upper GI endoscopy with biopsies as indicated. Potential risks including bleeding and perforation were discussed, and the patient wishes to proceed. DETAILS OF PROCEDURE: The patient was taken to the operating room and then placed in the left lateral decubitus position. IV sedation was administered after which the upper GI endoscope was passed orally through the length of the esophagus and the stomach with retroflexion view of the fundus, thereafter through the pyloric channel, and the duodenum to the junction of the 3rd and 4th duodenal segments. FINDINGS: Included normal hypopharynx, larynx, upper esophageal sphincter, and esophageal body. At the EG junction, no significant hiatal hernia was noted, nor was there significant inflammation. There was no upward extension of the gastroesophageal junction mucosal line above the upper gastric folds. Within the stomach, there was a fairly large amount of retained bile suggestive of some possibility of gastroparesis. Roughly, 60 mL of waste material was evacuated. Apart from that, there was some patchy redness in the antrum without erosions or ulcers. The pyloric channel and the visualized portions of the duodenum were unremarkable. At this point, biopsies were obtained from the antrum and sent for CLOtest for H. pylori. Minimal bleeding from the biopsy sites was seen, and the procedure was then concluded. We will schedule the patient for nuclear medicine gastric emptying study to evaluate what extent he has significant gastroparesis, although thereafter separate Gastroenterology consult in [facility] in [place] regarding the bloating and weight loss and underlying history of type 2 diabetes mellitus, and then we will have him follow up with Dr. Cage after the GI consult is completed to pickup ongoing care. We will initiate the patient on Protonix 40 mg p.o. daily in the interim. Gal Dyson MD /[id number]
== END 2019-01-04 09:30 | disposition home or self-care (01) ==
LOC: JP.SDS 05:46
PROVIDERS: ATTEND Surgery
DX: K29.50 Unspecified chronic gastritis without bleeding (principal); R63.4 Abnormal weight loss; E11.9 Type 2 diabetes mellitus without complications; Z88.2 Allergy status to sulfonamides; Z88.5 Allergy status to narcotic agent; Z88.6 Allergy status to analgesic agent; Z68.25 Body mass index [BMI] 25.0-25.9, adult
CPT/HCPCS: 43239; 87081; A9270; J1100; J2250; J2405; J2704; J3010; J7042

== ENCOUNTER 2019-08-29 06:36 | Observation (INO) | payer MEDICAID ==
[~2019-08-29 06:36] MED LIST changes: -Gabapentin 300 MG Cap PO ONE; -Lactated Ringers 1,000 ML IV SCH; -Scopolamine 1.5 MG Transdermal Patch TOP SCH
[2019-08-29] MEDS ORDERED: Scopolamine 1.5 MG Transdermal Patch TOP ONE (07:00)
[2019-08-29] MEDS ORDERED: fentaNYL 100 MCG/2 ML SDV ONE ×2 (07:05→08:22)
[2019-08-29] MEDS ORDERED: Midazolam 1 MG/ML 2 ML SDV ONE (07:05)
[2019-08-29] MEDS ORDERED: Propofol 200 MG/20 ML SDV ONE ×3 (07:05→08:39)
[2019-08-29] MEDS ORDERED: Metoprolol Tartrate 25 MG Tab PO ONE (07:11)
[2019-08-29] MEDS ORDERED: ceFAZolin 2 GM in Premix Bag 1 BAG IV ONE (07:30)
[2019-08-29] MEDS ORDERED: ceFAZolin 2 GM in Sodium Chloride 0.9% 50 ML IV ONE (07:30)
[2019-08-29] MEDS ORDERED: Dextrose 5%-Lactated Ringers 1,000 ML IV SCH (07:30)
[2019-08-29] MEDS ORDERED: Ondansetron 4 MG/2 ML SDV ONE (08:12)
[2019-08-29] MEDS ORDERED: Lidocaine 1% with EPINEPHrine 1:100,000 50 ML MDV INJECT ONE ×2 (08:16)
[2019-08-29] MEDS ORDERED: Bupivacaine 0.5% 50 ML MDV INJECT ONE ×2 (08:16)
[2019-08-29] MEDS ORDERED: fentaNYL 100 MCG/2 ML SDV IVPUSH ONE (09:05)
[2019-08-29] MEDS ORDERED: Glucagon,Human Recombinant 1 MG Vial IM PRN (10:11)
[2019-08-29] MEDS ORDERED: 50% Dextrose in Water 50 ML Syringe IVPUSH PRN (10:11)
[2019-08-29] MEDS ORDERED: Glucose Gel 15 GM in 37.5 GM Tube PO PRN (10:11)
[2019-08-29] MEDS ORDERED: HYDROmorphone 2 MG Tab PO PRN (10:16)
[2019-08-29] MEDS: amLODIPine 10 MG Tab PO SCH (11:09)
[2019-08-29] MEDS: Ondansetron 4 MG/2 ML SDV IVPUSH PRN ×3 (11:33→19:35)
[2019-08-29] MEDS: Insulin Lispro 100 Unit/ML 3 ML KwikPen SUBCUT PRN ×2 (11:42→22:15)
[2019-08-29] MEDS ORDERED: Lactated Ringers 1,000 ML IV SCH (12:00)
[2019-08-29] MEDS: Acetaminophen 500 MG Tab PO SCH ×3 (15:17→19:37)
[2019-08-29] MEDS ORDERED: Metoclopramide 10 MG/2 ML SDV IVPUSH STA (15:34)
[2019-08-29] MEDS ORDERED: HYDROmorphone 0.5 MG/0.5 ML Syringe IVPUSH PRN (15:35)
[2019-08-29] MEDS: HYDROmorphone 1 MG/ML Syringe IVPUSH PRN ×2 (15:47→19:57)
[2019-08-29] MEDS: ceFAZolin 2 GM in Sodium Chloride 0.9% 50 ML IV SCH ×2 (16:44→23:59)
[2019-08-29] MEDS: Dextrose 5%-Lactated Ringers 1,000 ML IV SCH (18:46)
[2019-08-29] MEDS: Insulin Glargine,Human Rec. Analog 100 Units/ML 3 ML Pen SUBCUT SCH (22:14)
[2019-08-29] MEDS: Metoclopramide 10 MG/2 ML SDV IVPUSH SCH (22:16)
[2019-08-29] MEDS: Metoprolol Tartrate 25 MG Tab PO SCH (22:17)
[2019-08-30] MEDS: Acetaminophen 500 MG Tab PO SCH ×4 (01:07→20:35)
[2019-08-30] MEDS: Ondansetron 4 MG/2 ML SDV IVPUSH PRN ×2 (01:12→21:29)
[2019-08-30] MEDS: Metoclopramide 10 MG/2 ML SDV IVPUSH SCH ×5 (03:37→21:11)
[2019-08-30] MEDS: HYDROmorphone 1 MG/ML Syringe IVPUSH PRN (03:37)
[2019-08-30] MEDS: Dextrose 5%-Lactated Ringers 1,000 ML IV SCH (05:22)
[2019-08-30] MEDS: amLODIPine 10 MG Tab PO SCH (09:27)
[2019-08-30] MEDS: Metoprolol Tartrate 25 MG Tab PO SCH ×2 (09:28→21:55)
[2019-08-30] MEDS: SCOPOLAMINE PATCH CHECK TOP SCH (09:28)
[2019-08-30] MEDS: Insulin Lispro 100 Unit/ML 3 ML KwikPen SUBCUT PRN ×3 (09:30→17:58)
[2019-08-30] MEDS ORDERED: Zolpidem 5 MG Tab PO PRN (17:54)
[2019-08-30] MEDS: Insulin Glargine,Human Rec. Analog 100 Units/ML 3 ML Pen SUBCUT SCH (21:55)
[2019-08-30] MEDS ORDERED: Dextrose 5%-Lactated Ringers 1,000 ML IV SCH (22:30)
[2019-08-31] MEDS: Acetaminophen 500 MG Tab PO SCH ×2 (02:25→08:14)
[2019-08-31] MEDS: Metoclopramide 10 MG/2 ML SDV IVPUSH SCH (04:00)
[2019-08-31 07:27] VITALS: BP 118/55; PULSE 80
[2019-08-31] MEDS: amLODIPine 10 MG Tab PO SCH (08:16)
[2019-08-31] MEDS: Metoprolol Tartrate 25 MG Tab PO SCH (08:16)
[2019-08-31] MEDS: SCOPOLAMINE PATCH CHECK TOP SCH (08:17)
[2019-08-31] MEDS: Insulin Lispro 100 Unit/ML 3 ML KwikPen SUBCUT PRN (09:11)
--- NOTE | 2019-08-31 10:07 | DISCH ---
ADMISSION DIAGNOSES: 1. Left inguinal hernia. 2. Coronary artery disease. 3. Dyslipidemia. 4. Coronary artery bypass graft. 5. Essential hypertension. 6. Congenital spinal stenosis. 7. Uncontrolled insulin-dependent diabetes with neuropathy. 8. Non-ST segment elevation myocardial infarction. 9. Status post lumbar fusion. 10.Diabetic gastroparesis. DISCHARGE DIAGNOSIS: Left inguinal exploration with repair of incisional left inguinal hernia with mesh and excision of portion of the left ilioinguinal nerve. POSTOPERATIVE DIAGNOSES: 1. Incarcerated left inguinal hernia. 2. Left ilioinguinal nerve at risk for scar entrapment. Date of surgery: 08/29/2019. Surgeon: Gal Dyson MD. HISTORY: Joshua Doss had his surgery on 08/29/2019. He had postoperative nausea and vomiting. He was started on Reglan, scopolamine patch, and was given Zofran. On postoperative day #1, he continued to have nausea and vomiting. He was able to tolerate 790 of fluids. He had 1430 mL emesis and urine output was 2150. On 08/31/2019, his oral intake was better and he did have 600 mL of emesis and he did throw up 4 times. Urine output was 2100. He reports that he feels once he gets home, he will be feeling better. His activity is good. Vital signs have been stable. REVIEW OF SYSTEMS: Remainder of review of systems negative for any pertinent positives and negatives. OBJECTIVE: GENERAL: Joshua Doss is a 58-year-old male. VITAL SIGNS: Height is 5 feet 9 inches, weight is 168 pounds. TPR is 98.1, 80, 16, blood pressure 118/55. HEENT: Negative. NECK: Supple. HEART: Regular rate and rhythm. LUNGS: Clear. ABDOMEN: Dressings at left inguinal hernia is dry and intact. EXTREMITIES: Without peripheral edema. DISPOSITION: Discharged to home. CONDITION: Stable and improving. FOLLOWUP: Appointment with Helena Dillon PA-C, on at 9 a.m. HOME MEDICATIONS: 1. Dilaudid 2 mg every 6 hours p.r.n. pain, #28. 2. Reglan 10 mg p.o. before meals and at bedtime, #120. 3. Zofran 4 mg ODT sublingual q.4 hours p.r.n. nausea, #30. 4. Azithromycin 125 mg p.o. q.24 hours, #30. He is to resume his home medications of; 1. Lantus 20 units subcu bedtime. 2. Amlodipine 10 mg p.o. daily. 3. Lopressor 25 mg p.o. b.i.d. 4. Extra Strength Tylenol 1000 mg q.6 hours p.r.n. pain. DIET: Mechanical soft diet. 8 to 10 glasses of water a day. ACTIVITY: No lifting greater than 10 pounds for 6 weeks. Other activity is walk at least 6 times daily, distance and time as tolerated. Driving: Do not drive for 1 week and while on pain medication. Shower/bathing: May shower. Keep operative site clean and dry. DISCHARGE INSTRUCTIONS: Notify provider if any fever, increased pain, nausea, or vomiting. SPECIAL INSTRUCTIONS: 1. Use incentive spirometer 10 times every hour while awake. 2. Remove scopolamine patch which is for nausea behind his ear on Thursday night, September 02, 2019.
--- NOTE | 2019-09-01 11:38 | PN ---
DATE OF SERVICE: 08/30/2019 Overnight, the patient had ongoing nausea and vomiting. The patient does have a notable history of diabetic gastroparesis, and we did add some Reglan last night, along with Zofran. We will give him some Zithromax today to augment the gastric emptying as well, and we will try to restart the diet during the day. He will need to be switched to inpatient status because of this issue. Otherwise, we will work on pulmonary toilet and get him up and moving as much as possible today. We will recheck some labs tomorrow morning. Gal Dyson MD /[id number]
--- NOTE | 2019-09-09 14:08 | OR ---
DATE OF PROCEDURE: 08/29/2019 SURGEON: Gal Dyson MD PREOPERATIVE DIAGNOSIS: Incarcerated left inguinal hernia. POSTOPERATIVE DIAGNOSIS: 1. Incarcerated left inguinal hernia. 2. Left ilioinguinal nerve at risk for scar entrapment. OPERATIVE PROCEDURE: Left inguinal exploration with: 1. Repair of incarcerated left inguinal hernia with mesh (86443). 2. Excision of portion of left ilioinguinal nerve ([id number]). ANESTHESIA: Local plus IV sedation. INDICATION FOR PROCEDURE: This is a 58-year-old presenting with worsening symptomatic left inguinal hernia. This is often noted to contain what would likely be sigmoid colon and at times has been difficult to reduce, associated with some nausea and discomfort in that area when it is fully descended down into the hernia sac. The plan is to proceed with an open repair of this with a mesh plug technique. We will use local plus IV sedation. His current medical status is quite tenuous, but I think he should, in all likelihood, tolerate this procedure reasonably well, whereas leaving this in place would put the patient at risk for large bowel obstruction and possible necrosis, which would not be tolerated in this case. Potential risks of the procedure per se including bleeding, infection, injury to underlying viscera, problems with hernia recurring and the mesh becoming infected as well as the possibility of cardiopulmonary, septic, or hemorrhagic complications leading to were all discussed, and the patient wishes to proceed. Additionally, that we will often divide the area of the ilioinguinal nerve on this side of the procedure so as to avoid postoperative neuropathic pain was gone over, and the patient likewise wishes to proceed. DETAILS OF PROCEDURE: The patient was taken to the operating room and placed in a supine position. After IV sedation was administered, the abdomen and groin areas were prepped and draped. The left inguinal area was anesthetized with 1% lidocaine with Marcaine, and a standard left inguinal excision was made and carried down through the skin and subcutaneous tissue to the external oblique aponeurosis. Subaponeurotic flaps were then raised superiorly and inferiorly so that the ilioinguinal nerve would lay across the location of the flat portion of the mesh plug system. This was divided in the medial aspect of the inguinal floor and dissected free, and the far lateral aspect of the incision where it was divided, and that portion of the nerve was excised. The cord structures were then mobilized upward after subfascial flaps were raised superiorly and medially, and as the cord structures were mobilized upward, the patient was noted to have a large indirect hernia. This contained some palpable viscera, which in this case would almost certainly be sigmoid colon. This was gradually reduced with some teasing of the bowel wall away from the hernia sac and the bowel then inspected after the hernia sac was opened and found to be intact and was able to be reduced back in. Visual confirmation did show this to be sigmoid colon. The hernia sac was then re-tied and then dissected down to the level of the internal ring, where it was easily turned inward. A large mesh plus was placed in the defect. This was fixed medially to Fabrice ligament with some titanium tacking screws and the underside of the conjoined tendon medially, superiorly, and laterally with horizontal mattress sutures of 0 Vicryl stitch. A similar stitch was then placed at the shelving portion of the inguinal ligament just lateral to the cord structures. Following this, the flat portion of the mesh plug system was placed around the cord structures, sutured laterally with 3-0 Vicryl, and then affixed to the pubic tubercle with titanium tacking screw. The cord structures were placed over this and the external oblique aponeurosis approximated with some 3-0 Vicryl stitch along with Jordan's fascia and the skin closed with 4-0 Vicryl subcuticular stitch. Dressing was applied. The patient tolerated the procedure well and was taken to the recovery room in satisfactory condition. There were no evident complications. Physician patent legal assistant, Radha Dillon, placed an essential role in assisting in this case, helping to position the patient, retracting structures as needed, as well as suturing and cutting sutures when indicated. Her presence improved patient safety and decreased operative time. Gal Dyson MD /[id number]
== END 2019-08-31 09:18 | disposition home or self-care (01) ==
LOC: JP.SDS 06:36 → JP.MS 09:10 → JP.SDS 08-30 07:59 → JP.MS 08-30 08:00 → JP.SDS 08-31 09:18
PROVIDERS: ADMIT Surgery; ATTEND Surgery
DX: K40.30 Unilateral inguinal hernia, with obstruction, without gangrene, not specified as recurrent (principal); I25.10 Atherosclerotic heart disease of native coronary artery without angina pectoris; I12.9 Hypertensive chronic kidney disease with stage 1 through stage 4 chronic kidney disease, or unspecified chronic kidney disease; E11.22 Type 2 diabetes mellitus with diabetic chronic kidney disease; N18.3 Chronic kidney disease, stage 3 (moderate); I25.2 Old myocardial infarction; E11.40 Type 2 diabetes mellitus with diabetic neuropathy, unspecified; E78.5 Hyperlipidemia, unspecified; E11.43 Type 2 diabetes mellitus with diabetic autonomic (poly)neuropathy; K31.84 Gastroparesis; Z88.5 Allergy status to narcotic agent; Z88.2 Allergy status to sulfonamides; Z91.09 Other allergy status, other than to drugs and biological substances; Z95.5 Presence of coronary angioplasty implant and graft; Z79.4 Long term (current) use of insulin; Z79.899 Other long term (current) drug therapy
CPT/HCPCS: 36415; 49507; 64772; 80053; 82962; 83735; 83880; 84100; 85027; 88305; 94762; A9270; C1713; C1781; J0456; J0690; J1170; J1815; J2020; J2250; J2405; J2704; J2765; J3010; J3490; J7040; J7042; J7050; J7120

== ENCOUNTER 2021-02-04 10:16 | Emergency (ER) | payer MEDICAID ==
[2021-02-04] MEDS ORDERED: Sodium Chloride 0.9% 10 ML Syringe FLUSH PRN (10:18)
[2021-02-04] MEDS ORDERED: Aspirin 81 MG Tab.Chew PO ONE (10:19)
--- NOTE | 2021-02-04 10:24 | EDM.PDOC ---
ED HPI GENERAL MEDICAL PROBLEM - General Chief Complaint: Cardiovascular Problem Stated Complaint: HEART TROUBLE Time Seen by Provider: 02/04/21 10:23 Source of Information: Reports: Patient, Old Records, RN History Limitations: Reports: Other (poor historian) - History of Present Illness INITIAL COMMENTS - FREE TEXT/NARRATIVE: 60 yo male presents with 3 days of "chest pain" and SOB. Has chronic chest pain and simultaneous numbness he states since his previous CVA. Sx's have been constant for the past 3 days and are not worse. No fever. No self tx. Does not live alone. SOB worse with walking. Pain not worse with breathing. Onset: Gradual Onset Date: 02/01/21 Duration: Day(s): (3), Constant Location: Reports: Chest Quality: Reports: Other (numb with chronic pain x always, ? worse today. ) Severity: Moderate Improves with: Reports: None Worsens with: Reports: Other (? exertion) Context: Reports: Other (See HPI) Associated Symptoms: Reports: Chest Pain, Shortness of Breath. 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) (none) - Related Data Allergies Allergy/AdvReac Type Severity Reaction Status Date / Time grass pollen Allergy Rash Verified 08/25/19 13:30 Sulfa (Sulfonamide Allergy Itching Verified 08/26/19 13:02 Antibiotics) hydrocodone AdvReac Nausea and Verified 08/26/19 13:02 Vomiting morphine AdvReac Nausea and Verified 01/04/19 06:25 Vomiting oxycodone AdvReac Nausea and Verified 08/26/19 13:02 Vomiting tramadol AdvReac Nausea and Verified 08/26/19 13:02 Vomiting hamsters Allergy Rash Uncoded 08/25/19 13:30 Home Meds: Home Meds Insulin Glarg,Human.Rec.Analog [Lantus] 20 unit SQ BEDTIME 01/09/15 [History] Metoprolol Tartrate [Lopressor] 25 mg PO BID 08/29/19 [History] amLODIPine Besylate [Amlodipine Besylate] 10 mg PO DAILY 08/29/19 [History] Acetaminophen [Tylenol Extra Strength] 1,000 mg PO Q6H tablet 08/31/19 [Rx] Azithromycin 125 mg PO Q24H #30 tablet 08/31/19 [Rx] HYDROmorphone [Dilaudid] 2 mg PO Q6H PRN #28 tablet 08/31/19 [Rx] Metoclopramide [Reglan] 10 mg PO Q6H #120 tab 08/31/19 [Rx] Ondansetron [Ondansetron ODT] 4 mg PO Q4H PRN #30 tab.rapdis 08/31/19 [Rx] Past Medical History HEENT History: Reports: None, Otitis Media Cardiovascular History: Reports: CAD, High Cholesterol, Hypertension, MT, Stents, Other (See Below) Other Cardiovascular History: CABG X3 IN 2014 Gastrointestinal History: Reports: Cholelithiasis, Other (See Below) Other Gastrointestinal History: severe nausea Genitourinary History: Reports: None Musculoskeletal History: Reports: Arthritis, Back Pain, Chronic, Fracture, Osteoarthritis Neurological History: Reports: Concussion, CVA, Other (See Below) Other Neuro History: CVA Psychiatric History: Reports: Bipolar, Psych Hospitalization(s) Endocrine/Metabolic History: Reports: Diabetes, Type II, IDDM Hematologic History: Reports: Blood Transfusion(s) - Infectious Disease History Infectious Disease History: Reports: Chicken Pox, Measles, Mumps, Rubella - Past Surgical History HEENT Surgical History: Reports: Adenoidectomy, Myringotomy w Tube(s), Oral Surgery, Other (See Below) Other HEENT Surgeries/Procedures: snap in dentures Cardiovascular Surgical History: Reports: Coronary Artery Bypass GI Surgical History: Reports: Cholecystectomy, Colonoscopy, EGD, Hernia, A bdominal Male Surgical History: Reports: Vasectomy Endocrine Surgical History: Reports: None Neurological Surgical History: Reports: Laminectomy, Spinal Fusion Musculoskeletal Surgical History: Reports: Joint Replacement, Knee Replacement, Shoulder Surgery Other Musculoskeletal Surgeries/Procedures:: back surgery, multiple left leg surgery, left and right shoulder surgery, recent L2,L3,L4 fussion through abd was just discharged on ; right toes amputation ; left ankle fracture Dermatological Surgical History: Reports: None Social & Family History - Family History Family Medical History: No Pertinent Family History Cardiac: Reports: Heart Failure, MT, Other (See Below) Other Cardiac Family History: mother r/t sepsis after hernia repair Musculoskeletal: Reports: Back pain, Chronic Neurological: Reports: None Endocrine/Metabolic: Reports: Diabetes, type II Oncologic: Reports: Pancreatic - Caffeine Use Caffeine Use: Reports: Coffee Other Caffeine Use: diet ED ROS GENERAL - Review of Systems Review Of Systems: See Below Constitutional: Reports: No Symptoms HEENT: Reports: No Symptoms Respiratory: Reports: Shortness of Breath. Denies: Cough, Sputum, Hemoptysis Cardiovascular: Reports: Chest Pain GI/Abdominal: Reports: No Symptoms : Reports: No Symptoms Musculoskeletal: Reports: No Symptoms Skin: Reports: No Symptoms Neurological: Reports: Numbness (chest) Psychiatric: Reports: No Symptoms ED EXAM, GENERAL - Physical Exam Exam: See Below Exam Limited By: No Limitations General Appearance: Alert, WD/WN, No Apparent Distress, Anxious Eye Exam: Bilateral Eye: Normal Inspection Ears: Normal External Exam, Normal Canal, Hearing Grossly Normal Ear Exam: Bilateral Ear: Auricle Normal, Canal Normal Nose: Normal Inspection, No Blood Throat/Mouth: Normal Inspection, Normal Lips, Normal Oropharynx, Normal Voice, No Airway Compromise Head: Atraumatic, Normocephalic Neck: Normal Inspection Respiratory/Chest: No Respiratory Distress, Lungs Clear, Normal Breath Sounds, No Accessory Muscle Use Cardiovascular: Regular Rate, Rhythm, No Edema GI/Abdominal: Normal Bowel Sounds, Soft, Non-Tender, No Distention Extremities: Normal Inspection Neurological: Alert, Oriented, CN II-XII Intact, Normal Cognition, No Motor/Sensory Deficits Psychiatric: Normal Affect, Normal Mood Skin Exam: Warm, Dry, Intact, Normal Color, No Rash, Other (old sternal scar pr esent) #1 Interpretation EKG Date: 02/04/21 Time: 10:20 Rhythm: NSR Rate (Beats/Min): 76 [place]: Normal P-Wave: Present QRS: LBBB ST-T: Normal QT: Normal Comparison: Change From Previous EKG (T waves flipped in I, V4-V6 compared with 01/28/18) Course - Vital Signs Last Recorded V/S: Last Vital Signs Temp 36.5 C 02/04/21 10:24 Pulse 80 02/04/21 10:24 Resp 16 02/04/21 10:24 BP 198/113 H 02/04/21 10:24 Pulse Ox 99 02/04/21 10:24 - Orders/Labs/Meds Orders: Active Orders 24 hr Category Date Time Status BASIC METABOLIC PANEL,BMP [CHEM] Stat Lab 02/04/21 10:25 Received TROPONIN I [CHEM] Stat Lab 02/04/21 10:25 Received Saline Lock Insert [OM.PC] Routine Oth 02/04/21 10:18 Ordered EKG 12 Lead [EK] Routine Ther 02/04/21 10:17 Ordered Labs: Laboratory Tests 02/04/21 Range/Units 10:25 WBC 10.8 (4.5-11.0) K/uL RBC 5.17 (4.30-5.90) M/uL Hgb 13.5 D (12.0-15.0) g/dL Hct 41.4 (40.0-54.0) % MCV 80 (80-98) fL MCH 26 L (27-31) pg MCHC 33 (32-36) % Plt Count 249 (150-400) K/uL Meds: Medications Discontinued Medications Generic Name Dose Route Start Last Admin Trade Name Freq PRN Reason Stop Dose Admin Aspirin 324 mg 02/04/21 10:19 Aspirin 81 Mg Tab.Chew PO 02/04/21 10:20 ONETIME ONE Lorazepam 0.5 mg 02/04/21 10:27 Lorazepam 2 Mg/Ml Sdv IVPUSH 02/04/21 10:28 ONETIME ONE Nitroglycerin 0.4 mg 02/04/21 10:26 Nitroglycerin 0.4 Mg Tab.Sl SL Q5M PRN Chest Pain Sodium Chloride 10 ml 02/04/21 10:18 Sodium Chloride 0.9% 10 Ml Syringe FLUSH ASDIRECTED PRN Keep Vein Open Departure - Departure Time of Disposition: 10:35 Disposition: Against Medical Advice 07 Condition: Fair Clinical Impression: Anxiety HTN (hypertension) Qualifiers: Hypertension type: unspecified Qualified Code(s): I10 - Essential (primary) hypertension Referrals: PCP,None [Primary Care Provider] - Forms: ED Department Discharge Sepsis Event Note (ED) - Focused Exam Vital Signs: Vital Signs Temp Pulse Resp BP Pulse Ox 02/04/21 10:24 36.5 C 80 16 198/113 H 99 - My Orders Last 24 Hours: My Active Orders 02/04/21 10:17 EKG 12 Lead [EK] Routine 02/04/21 10:18 Saline Lock Insert [OM.PC] Routine 02/04/21 10:25 BASIC METABOLIC PANEL,BMP [CHEM] Stat TROPONIN I [CHEM] Stat - Assessment/Plan Last 24 Hours: My Active Orders 02/04/21 10:17 EKG 12 Lead [EK] Routine 02/04/21 10:18 Saline Lock Insert [OM.PC] Routine 02/04/21 10:25 BASIC METABOLIC PANEL,BMP [CHEM] Stat TROPONIN I [CHEM] Stat
[2021-02-04 10:25] VITALS: BP 198/113; PULSE 80
[2021-02-04] MEDS ORDERED: Nitroglycerin 0.4 MG Tab.SL SL PRN (10:26)
[2021-02-04] MEDS ORDERED: LORazepam 2 MG/ML SDV IVPUSH ONE (10:27)
== END 2021-02-04 10:35 | disposition left against medical advice (07) ==
LOC: JP.ED 10:16
DX: I10 Essential (primary) hypertension (principal); F41.9 Anxiety disorder, unspecified; I25.10 Atherosclerotic heart disease of native coronary artery without angina pectoris; E78.00 Pure hypercholesterolemia, unspecified; I25.2 Old myocardial infarction; E11.9 Type 2 diabetes mellitus without complications; Z91.048 Other nonmedicinal substance allergy status; Z88.2 Allergy status to sulfonamides; Z88.5 Allergy status to narcotic agent; Z79.4 Long term (current) use of insulin; Z79.899 Other long term (current) drug therapy; Z95.5 Presence of coronary angioplasty implant and graft; Z95.1 Presence of aortocoronary bypass graft; Z86.73 Personal history of transient ischemic attack (TIA), and cerebral infarction without residual deficits
CPT/HCPCS: 36415; 80048; 84484; 85027; 93005; 99285-25

== ENCOUNTER 2021-09-19 09:47 | Emergency (ER) | payer MEDICAID ==
--- NOTE | 2021-09-19 10:45 | EDM.PDOC ---
ED HPI GENERAL MEDICAL PROBLEM - General Chief Complaint: Respiratory Problem Stated Complaint: CANNOT CATCH BREATHING, FEELS LIKE DROWNING Time Seen by Provider: 09/19/21 10:24 Source of Information: Reports: Patient History Limitations: Reports: No Limitations - History of Present Illness INITIAL COMMENTS - FREE TEXT/NARRATIVE: Joshua is a 60-year-old male presenting to the ED for evaluation of respiratory distress. Patient states that since last night he is felt like he is drowning and unable to catch his breath. The patient is noted to be hyperventilating in the room while I am directing with him. Patient reports that he was told that he has a constrictive cardiomyopathy by [facility]. He also has a history of a stroke leaving him with a right sided decreased sensation and difficulty with memory. He denies any fever or chills. He has had a cough that is been minimally productive. He denies any chest pain. He has had nausea without vomiting. His SPO2 is 97% on room air and his respiratory rate is 22. - Related Data Allergies Allergy/AdvReac Type Severity Reaction Status Date / Time grass pollen Allergy Intermediate Rash Verified 09/19/21 10:13 Sulfa (Sulfonamide Allergy Intermediate Itching Verified 09/19/21 10:13 Antibiotics) hydrocodone AdvReac Intermediate Nausea and Verified 09/19/21 10:13 Vomiting morphine AdvReac Intermediate Nausea and Verified 09/19/21 10:13 Vomiting oxycodone AdvReac Intermediate Nausea and Verified 09/19/21 10:13 Vomiting tramadol AdvReac Intermediate Nausea and Verified 09/19/21 10:13 Vomiting hamsters Allergy Intermediate Rash Uncoded 09/19/21 10:13 Home Meds: Home Meds Metoprolol Tartrate [Lopressor] 25 mg PO BID 08/29/19 [History] amLODIPine Besylate [Amlodipine Besylate] 10 mg PO DAILY 08/29/19 [History] Metoclopramide [Reglan] 10 mg PO Q6H #120 tab 08/31/19 [Rx] Ondansetron [Ondansetron ODT] 4 mg PO Q4H PRN #30 tab.rapdis 08/31/19 [Rx] Aspirin 81 mg PO DAILY 09/19/21 [History] Past Medical History HEENT History: Reports: None, Otitis Media Cardiovascular History: Reports: CAD, High Cholesterol, Hypertension, [place], Stents, Other (See Below) Other Cardiovascular History: CABG X3 IN 2014 Gastrointestinal History: Reports: Cholelithiasis, Other (See Below) Other Gastrointestinal History: severe nausea Genitourinary History: Reports: None Musculoskeletal History: Reports: Arthritis, Back Pain, Chronic, Fracture, Osteoarthritis Neurological History: Reports: Concussion, CVA, Other (See Below) Other Neuro History: CVA Psychiatric History: Reports: Bipolar, Psych Hospitalization(s) Endocrine/Metabolic History: Reports: Diabetes, Type II, IDDM Hematologic History: Reports: Blood Transfusion(s) - Infectious Disease History Infectious Disease History: Reports: Chicken Pox, Measles, Mumps, Rubella - Past Surgical History HEENT Surgical History: Reports: Adenoidectomy, Myringotomy w Tube(s), Oral Surgery, Other (See Below) Other HEENT Surgeries/Procedures: snap in dentures Cardiovascular Surgical History: Reports: Coronary Artery Bypass GI Surgical History: Reports: Cholecystectomy, Colonoscopy, EGD, Hernia, Abdominal Male Surgical History: Reports: Vasectomy Endocrine Surgical History: Reports: None Neurological Surgical History: Reports: Laminectomy, Spinal Fusion Musculoskeletal Surgical History: Reports: Joint Replacement, Knee Replacement, Shoulder Surgery Other Musculoskeletal Surgeries/Procedures:: back surgery, multiple left leg surgery, left and right shoulder surgery, recent L2,L3,L4 fussion through abd was just discharged on ; right toes amputation ; left ankle fracture Dermatological Surgical History: Reports: None Social & Family History - Family History Family Medical History: No Pertinent Family History Cardiac: Reports: Heart Failure, [place], Other (See Below) Other Cardiac Family History: mother r/t sepsis after hernia repair Musculoskeletal: Reports: Back pain, Chronic Neurological: Reports: None Endocrine/Metabolic: Reports: Diabetes, type II Oncologic: Reports: Pancreatic - Tobacco Use Tobacco Use Status *Q: Never Tobacco User - Caffeine Use Caffeine Use: Reports: Coffee Other Caffeine Use: diet - Recreational Drug Use Recreational Drug Use: Yes Recreational Drug Type: Reports: Marijuana/Hashish Recreational Drug Use Frequency: Rarely ED ROS GENERAL - Review of Systems Review Of Systems: See Below Constitutional: Reports: Weakness (Generalized) HEENT: Reports: No Symptoms Respiratory: Reports: Shortness of Breath Cardiovascular: Reports: No Symptoms Endocrine: Reports: No Symptoms GI/Abdominal: Reports: No Symptoms : Reports: No Symptoms Musculoskeletal: Reports: No Symptoms Skin: Reports: No Symptoms Neurological: Reports: No Symptoms Psychiatric: Reports: Anxiety Hematologic/Lymphatic: Reports: No Symptoms Immunologic: Reports: No Symptoms ED EXAM, GENERAL - Physical Exam Exam: See Below Exam Limited By: No Limitations General Appearance: Alert, Anxious, Mild Distress Eye Exam: Bilateral Eye: EOMI, PERRL Throat/Mouth: Normal Oropharynx, Normal Voice, No Airway Compromise Head: Atraumatic, Normocephalic Neck: Normal Inspection, Supple Respiratory/Chest: No Respiratory Distress, No Accessory Muscle Use, Chest Non- Tender, Rhonchi (Scant rhonchi in bases), Other (Tachypnea) Cardiovascular: Normal Peripheral Pulses, Regular Rate, Rhythm, No Murmur GI/Abdominal: Normal Bowel Sounds, Soft, Non-Tender Back Exam: Normal Inspection Extremities: Normal Inspection Neurological: Alert, Oriented, Normal Cognition, No Motor/Sensory Deficits Psychiatric: Normal Affect, Anxious Skin Exam: Warm, Dry #1 Interpretation EKG Date: 09/19/21 Time: 10:34 Rhythm: NSR (Occasional premature ventricular contraction.) Rate (Beats/Min): 83 [place]: LAD-Left Mcintosh Deviation P-Wave: Present QRS: Normal (LVH by voltage criteria. Poor R wave progression in the precordial leads.) ST-T: Other (T wave inversion in lateral leads.) QT: Prolonged Course - Vital Signs Last Recorded V/S: Last Vital Signs Temp 37.0 C 09/19/21 14:26 Pulse 77 09/19/21 16:05 Resp 16 09/19/21 16:05 BP 145/87 H 09/19/21 16:05 Pulse Ox 96 09/19/21 16:05 - Orders/Labs/Meds Orders: Active Orders 24 hr Category Date Time Status Sodium Chloride 0.9% [Saline Flush] Med 09/19/21 12:25 Active 10 ml FLUSH ASDIRECTED PRN Isolation [COMM] Stat Oth 09/19/21 10:57 Ordered Saline Lock Insert [OM.PC] Routine Oth 09/19/21 12:25 Ordered EKG 12 Lead [EK] Routine Ther 09/19/21 10:57 Ordered Medication Orders Sodium Chloride (Sodium Chloride 0.9% 10 Ml Syringe) 10 ml FLUSH ASDIRECTED PRN PRN Reason: Keep Vein Open Last Admin: 09/19/21 12:47 Dose: 10 ml Documented by: [email or web address] Labs: Laboratory Tests 09/19/21 09/19/21 09/19/21 Range/Units 10:56 11:04 11:05 WBC 11.1 H (4.5-11.0) K/uL RBC 4.80 (4.30-5.90) M/uL Hgb 12.6 (12.0-15.0) g/dL Hct 38.7 L (40.0-54.0) % MCV 81 (80-98) fL MCH 26 L (27-31) pg MCHC 33 (32-36) % Plt Count 271 (150-400) K/uL Neut % (Auto) 76.8 H (36-66) % Lymph % (Auto) 13.8 L (24-44) % [place] % (Auto) 7.7 H (2-6) % Eos % (Auto) 1.5 L (2-4) % Baso % (Auto) 0.2 (0-1) % Sodium 146 (140-148) mmol/L Potassium 4.7 (3.6-5.2) mmol/L Chloride 110 H (100-108) mmol/L Carbon Dioxide 27 (21-32) mmol/L Anion Gap 13.7 (5.0-14.0) mmol/L BUN 29 H (7-18) mg/dL Creatinine 1.5 H (0.8-1.3) mg/dL Est Cr Clr Drug Dosing 48.35 mL/min Estimated GFR (MDRD) 48 L (>60) Glucose 142 H (74-106) mg/dL Calcium 9.0 (8.5-10.1) mg/dL Total Bilirubin 0.6 (0.2-1.0) mg/dL AST 20 (15-37) U/L ALT 39 D (12-78) U/L Alkaline Phosphatase 102 (46-116) U/L Troponin I (0.000-0.056) ng/mL NT-Pro-B Natriuret Pep 8599 H (5-125) pg/mL Total Protein 6.6 (6.4-8.2) g/dL Albumin 3.3 L (3.4-5.0) g/dL Globulin 3.3 (2.3-3.5) g/dL Albumin/Globulin Ratio 1.0 L (1.2-2.2) Influenza Type A RNA Negative (NEGATIVE) RSV RNA (INAAT) Negative (NEGATIVE) Influenza Type B RNA Negative (NEGATIVE) SARS-CoV-2 RNA ([place]) Negative (NEGATIVE) 09/19/21 Range/Units 11:05 WBC (4.5-11.0) K/uL RBC (4.30-5.90) M/uL Hgb (12.0-15.0) g/dL Hct (40.0-54.0) % MCV (80-98) fL MCH (27-31) pg MCHC (32-36) % Plt Count (150-400) K/uL Neut % (Auto) (36-66) % Lymph % (Auto) (24-44) % [place] % (Auto) (2-6) % Eos % (Auto) (2-4) % Baso % (Auto) (0-1) % Sodium (140-148) mmol/L Potassium (3.6-5.2) mmol/L Chloride (100-108) mmol/L Carbon Dioxide (21-32) mmol/L Anion Gap (5.0-14.0) mmol/L BUN (7-18) mg/dL Creatinine (0.8-1.3) mg/dL Est Cr Clr Drug Dosing mL/min Estimated GFR (MDRD) (>60) Glucose (74-106) mg/dL Calcium (8.5-10.1) mg/dL Total Bilirubin (0.2-1.0) mg/dL AST (15-37) U/L ALT (12-78) U/L Alkaline Phosphatase (46-116) U/L Troponin I 0.026 (0.000-0.056) ng/mL NT-Pro-B Natriuret Pep (5-125) pg/mL Total Protein (6.4-8.2) g/dL Albumin (3.4-5.0) g/dL Globulin (2.3-3.5) g/dL Albumin/Globulin Ratio (1.2-2.2) Influenza Type A RNA (NEGATIVE) RSV RNA (INAAT) (NEGATIVE) Influenza Type B RNA (NEGATIVE) SARS-CoV-2 RNA ([place]) (NEGATIVE) Meds: Medications Generic Name Dose Route Start Last Admin Trade Name Freq PRN Reason Stop Dose Admin Sodium Chloride 10 ml 09/19/21 12:25 09/19/21 12:47 Sodium Chloride 0.9% 10 Ml Syringe FLUSH 10 ml ASDIRECTED PRN Administration Keep Vein Open Discontinued Medications Generic Name Dose Route Start Last Admin Trade Name Freq PRN Reason Stop Dose Admin Furosemide 80 mg 09/19/21 12:25 09/19/21 12:47 Furosemide 40 Mg/4 Ml Vial IVPUSH 09/19/21 12:26 80 mg ONETIME ONE Administration - Radiology Interpretation Free Text/Narrative:: I reviewed the chest x-ray showing cephalization of the vasculature consistent with pulmonary vascular overload. There is mild pulmonary edema. There is cardiomegaly. - Re-Assessments/Exams Free Text/Narrative Re-Assessment/Exam: 09/19/21 16:14 I reviewed the patient's labs showing a leukocytosis of 11.1, hemoglobin of 12.6, hematocrit of 30.7 and platelet count of 271,000. The comprehensive metabolic panel shows a sodium 146, potassium 4.7, chloride of 110, bicarbonate of 27, BUN of 29 with a creatinine 1.5 and a glucose of 142. GFR is calculated at 48. Calcium is normal at 9.0. Troponin is normal at 0.026. proBNP is 8599 which is significant for heart failure. Covid, RSV, and influenza are negative. Chest x-ray is obtained showing cephalization of the vasculature consistent with pulmonary overload and mild pulmonary edema. The patient was given Lasix 80 mg IV push with a significant output of urine (over a liter) and marked improvement of his breathing. At this time I believe he suitable for discharge home. Indications return to the ED were discussed. I do not think he needs ongoing Lasix care during the weekend but should be rechecked on Thursday. Indications return to ED were discussed. Departure - Departure Time of Disposition: 16:10 Disposition: Home, Self-Care 01 Clinical Impression: Pulmonary edema cardiac cause, Diastolic dysfunction Congestive heart failure Qualifiers: Heart failure type: combined systolic and diastolic Heart failure chronicity: acute Qualified Code(s): I50.41 - Acute combined systolic (congestive) and diastolic (congestive) heart failure - Discharge Information Instructions: Heart Failure, Diagnosis, [id number], Living With Heart Failure, Heart Failure Exacerbation Referrals: PCP,None [Primary Care Provider] - Forms: ED Department Discharge Care Plan Goals: Your work-up today shows that you are in significant heart failure with a BNP of over 8000. You were given Lasix 80 mg IV with good urine output of over a liter of urine and improvement of your oxygenation and air movement. I do not think that you probably need additional Lasix at this time, however, I would like you to follow-up with your primary care provider the next week for recheck of your BNP and pulmonary edema. At this time since you have had such a great improvement I do not think you require hospitalization. Should you become significantly short of breath please return to the ED for reevaluation. Sepsis Event Note (ED) - Evaluation Sepsis Screening Result: No Definite Risk - Focused Exam Vital Signs: Vital Signs Temp Pulse Resp BP Pulse Ox 09/19/21 16:05 77 16 145/87 H 96 09/19/21 14:26 37.0 C 82 24 H 117/74 98 09/19/21 12:41 72 18 142/86 H 95 09/19/21 12:24 81 143/92 H 98 09/19/21 11:22 75 139/82 98 09/19/21 10:10 36.7 C 80 18 142/91 H 99 - Problem List & Annotations (1) HTN (hypertension) SNOMED Code(s): 24704238 Code(s): I10 - ESSENTIAL (PRIMARY) HYPERTENSION Status: Chronic Priority: High Current Visit: No Qualifiers: Hypertension type: unspecified Qualified Code(s): I10 - Essential (primary) hypertension (2) Congestive heart failure SNOMED Code(s): 40558596 Code(s): I50.9 - HEART FAILURE, UNSPECIFIED Status: Acute Priority: High Current Visit: Yes Qualifiers: Heart failure type: combined systolic and diastolic Heart failure chronicity: acute Qualified Code(s): I50.41 - Acute combined systolic (congestive) and diastolic (congestive) heart failure (3) Diastolic dysfunction SNOMED Code(s): 6903334 Code(s): I51.89 - OTHER ILL-DEFINED HEART DISEASES Status: Acute Priority: High Current Visit: Yes (4) Pulmonary edema cardiac cause SNOMED Code(s): 66275980, 02614910 Code(s): I50.1 - LEFT VENTRICULAR FAILURE, UNSPECIFIED Status: Acute Priority: High Current Visit: Yes - Problem List Review Problem List Initiated/Reviewed/Updated: Yes - My Orders Last 24 Hours: My Active Orders 09/19/21 10:57 Isolation [COMM] Stat EKG 12 Lead [EK] Routine 09/19/21 12:25 Sodium Chloride 0.9% [Saline Flush] 10 ml FLUSH ASDIRECTED PRN Saline Lock Insert [OM.PC] Routine - Assessment/Plan Last 24 Hours: My Active Orders 09/19/21 10:57 Isolation [COMM] Stat EKG 12 Lead [EK] Routine 09/19/21 12:25 Sodium Chloride 0.9% [Saline Flush] 10 ml FLUSH ASDIRECTED PRN Saline Lock Insert [OM.PC] Routine
[2021-09-19 11:39] LABS: CORONAVIRUS COVID-19 NAA NEGATIVE (NEGATIVE)
--- NOTE | 2021-09-19 12:13 | CR ---
CHEST: 2 view CLINICAL HISTORY:Dyspnea COMPARISON:08/26/2017 FINDINGS: The heart is enlarged. There has been previous sternotomy. Pulmonary vascularity is mildly cephalized. There is diffuse interstitial prominence. There may be some minimal fluid in the left major fissure. Impression: Mild cardiomegaly with vascular cephalization and interstitial prominence may represent some mild CHF with interstitial edema. Pneumonitis is not excluded
[2021-09-19] MEDS ORDERED: Sodium Chloride 0.9% 10 ML Syringe FLUSH PRN (12:25)
[2021-09-19] MEDS ORDERED: Furosemide 40 MG/4 ML VIAL IVPUSH ONE (12:25)
[2021-09-19 16:06] VITALS: BP 145/87; PULSE 77
== END 2021-09-19 16:37 | disposition home or self-care (01) ==
LOC: JP.ED 09:47
DX: I11.0 Hypertensive heart disease with heart failure (principal); I50.41 Acute combined systolic (congestive) and diastolic (congestive) heart failure; I25.10 Atherosclerotic heart disease of native coronary artery without angina pectoris; E78.00 Pure hypercholesterolemia, unspecified; I25.2 Old myocardial infarction; M19.90 Unspecified osteoarthritis, unspecified site; E11.9 Type 2 diabetes mellitus without complications; Z88.5 Allergy status to narcotic agent; Z88.2 Allergy status to sulfonamides; Z91.048 Other nonmedicinal substance allergy status; Z79.82 Long term (current) use of aspirin; Z79.899 Other long term (current) drug therapy; Z86.73 Personal history of transient ischemic attack (TIA), and cerebral infarction without residual deficits; Z20.822 Contact with and (suspected) exposure to COVID-19
CPT/HCPCS: 0241U; 36415; 71046; 80053; 83880; 84484; 85025; 93005; 96374; 99285; J1940

== ENCOUNTER 2022-06-16 15:25 | Inpatient (IN) | payer OTHER ==
[2022-06-16] MEDS ORDERED: Sodium Chloride 0.9% 10 ML Syringe FLUSH PRN (15:33)
[2022-06-16] MEDS ORDERED: 50% Dextrose in Water 50 ML Syringe IV PRN (15:33)
[2022-06-16] MEDS ORDERED: Acetaminophen 325 MG Tab PO PRN (15:33)
[2022-06-16] MEDS ORDERED: Glucose Gel 15 GM in 37.5 GM Tube PO PRN (15:33)
[2022-06-16] MEDS ORDERED: Piperacillin/Tazobactam 3.375 GM in Sodium Chloride 0.9% 50 ML IV SCH (15:45)
[2022-06-16] MEDS ORDERED: Vancomycin 1 GM SDV IV SCH (16:00)
[2022-06-16] MEDS: Piperacillin/Tazobactam/Dext 3.375 GM in Premix Bag 1 BAG IV SCH ×2 (16:15→21:15)
[2022-06-16] MEDS: Sodium Chloride 0.9% 1,000 ML IV SCH (16:15)
[2022-06-16 16:22] LABS: ESTIMATED GFR 62 mL/min (>60)
[2022-06-16] MEDS: Insulin Lispro 100 Unit/ML 3 ML KwikPen SUBCUT SCH ×2 (17:30→21:16)
[2022-06-16] MEDS: Enoxaparin 40 MG/0.4 ML Syringe SUBCUT SCH (17:59)
[2022-06-17] MEDS: Piperacillin/Tazobactam/Dext 3.375 GM in Premix Bag 1 BAG IV SCH ×4 (03:29→21:29)
[2022-06-17] MEDS: Insulin Lispro 100 Unit/ML 3 ML KwikPen SUBCUT SCH ×4 (08:10→21:21)
[2022-06-17 09:20] LABS: HEMOGLOBIN A1C 7.4 % (4.5-6.2)
[2022-06-17] MEDS: Sodium Chloride 0.9% 1,000 ML IV SCH (10:42)
[2022-06-17] MEDS: traMADol 50 MG Tab PO PRN (15:51)
[2022-06-17] MEDS: Enoxaparin 40 MG/0.4 ML Syringe SUBCUT SCH (17:18)
[2022-06-18] MEDS: Piperacillin/Tazobactam/Dext 3.375 GM in Premix Bag 1 BAG IV SCH ×4 (03:45→21:36)
[2022-06-18] MEDS: Ondansetron 4 MG/2 ML SDV IV PRN (06:42)
[2022-06-18] MEDS: Insulin Lispro 100 Unit/ML 3 ML KwikPen SUBCUT SCH ×4 (07:58→21:36)
[2022-06-18] MEDS ORDERED: Gadoteridol 279.3 MG/ML 15 ML SDV IV SCH (12:00)
[2022-06-18] MEDS ORDERED: LORazepam 2 MG/ML SDV IVPUSH ONE (12:44)
[2022-06-18] MEDS ORDERED: Albuterol 0.083% 2.5 MG/3 ML Neb Soln NEB PRN (16:19)
[2022-06-18] MEDS: Enoxaparin 40 MG/0.4 ML Syringe SUBCUT SCH (17:16)
[2022-06-18] MEDS: Albuterol/Ipratropium 3.0-0.5 MG/3 ML Neb Soln NEB SCH ×2 (21:36→21:42)
[2022-06-18] MEDS: traMADol 50 MG Tab PO PRN (22:07)
[2022-06-19] MEDS: Ondansetron 4 MG/2 ML SDV IV PRN ×3 (02:27→10:45)
[2022-06-19] MEDS: Piperacillin/Tazobactam/Dext 3.375 GM in Premix Bag 1 BAG IV SCH ×2 (04:36→09:07)
[2022-06-19] MEDS: Albuterol/Ipratropium 3.0-0.5 MG/3 ML Neb Soln NEB SCH ×2 (07:07→10:49)
[2022-06-19] MEDS: Insulin Lispro 100 Unit/ML 3 ML KwikPen SUBCUT SCH ×2 (09:08→11:25)
[2022-06-19 09:23] VITALS: BP 163/82; PULSE 92
== END 2022-06-19 14:20 | disposition home or self-care (01) | DRG 638 ==
LOC: JP.MS 15:25
PROVIDERS: ADMIT Hospitalist; ATTEND Hospitalist
DX: E11.628 Type 2 diabetes mellitus with other skin complications (principal); L03.116 Cellulitis of left lower limb; I50.42 Chronic combined systolic (congestive) and diastolic (congestive) heart failure; E11.621 Type 2 diabetes mellitus with foot ulcer; L97.529 Non-pressure chronic ulcer of other part of left foot with unspecified severity; Z20.822 Contact with and (suspected) exposure to COVID-19; I11.0 Hypertensive heart disease with heart failure; F31.9 Bipolar disorder, unspecified; Z96.652 Presence of left artificial knee joint; Z96.612 Presence of left artificial shoulder joint; Z96.611 Presence of right artificial shoulder joint; E78.00 Pure hypercholesterolemia, unspecified; I25.10 Atherosclerotic heart disease of native coronary artery without angina pectoris; Z89.432 Acquired absence of left foot; Z89.431 Acquired absence of right foot; Z79.82 Long term (current) use of aspirin; Z79.899 Other long term (current) drug therapy; Z79.2 Long term (current) use of antibiotics; Z88.2 Allergy status to sulfonamides; Z88.8 Allergy status to other drugs, medicaments and biological substances; Z88.5 Allergy status to narcotic agent; Z88.6 Allergy status to analgesic agent; I25.2 Old myocardial infarction; Z95.5 Presence of coronary angioplasty implant and graft; Z95.1 Presence of aortocoronary bypass graft; Z87.19 Personal history of other diseases of the digestive system; Z87.81 Personal history of (healed) traumatic fracture; Z86.73 Personal history of transient ischemic attack (TIA), and cerebral infarction without residual deficits; Z90.89 Acquired absence of other organs; Z98.890 Other specified postprocedural states; Z90.49 Acquired absence of other specified parts of digestive tract; Z98.52 Vasectomy status; Z98.1 Arthrodesis status
CPT/HCPCS: 36415; 73630-26-LT; 73630-LT; 73723-LT; 80048; 80053; 80202; 82565; 82947; 83036; 83735; 85025; 85027; 86140; 87040; 94640; 99222; 99232; 99238; A9270-GY; A9579; J1650; J1815; J2060; J2405; J2543; J3370; J7030; J7050; J7620; U0002

== ENCOUNTER 2022-11-16 17:48 | Emergency (ER) | payer OTHER ==
[2022-11-16] MEDS ORDERED: Ondansetron 4 MG/2 ML SDV IVPUSH ONE (18:11)
[2022-11-16] MEDS ORDERED: LORazepam 2 MG/ML SDV IVPUSH ONE ×2 (18:11→18:53)
[2022-11-16] MEDS ORDERED: Sodium Chloride 0.9% 1,000 ML IV SCH (18:15)
[2022-11-16 18:34] VITALS: BP 187/87; PULSE 85
[2022-11-16 18:38] LABS: ESTIMATED GFR 52 mL/min (>60)
[2022-11-16] MEDS ORDERED: Scopolamine 1.5 MG Transdermal Patch TRDERM PRN (19:11)
== END 2022-11-16 20:09 | disposition home or self-care (01) ==
LOC: JP.ED 17:48
DX: F41.9 Anxiety disorder, unspecified (principal); R11.2 Nausea with vomiting, unspecified; E11.9 Type 2 diabetes mellitus without complications; I50.9 Heart failure, unspecified; Z88.2 Allergy status to sulfonamides; Z91.09 Other allergy status, other than to drugs and biological substances; Z79.82 Long term (current) use of aspirin
CPT/HCPCS: 36415; 80053; 83690; 85025; 96361; 96374; 96375; 96376; 99284; A9270; J2060; J2405; J7030; 99282

== ENCOUNTER 2022-11-19 11:37 | Emergency (ER) | payer OTHER ==
[2022-11-19] MEDS ORDERED: Prochlorperazine 10 MG/2 ML SDV IVPUSH ONE (12:10)
[2022-11-19] MEDS ORDERED: Sodium Chloride 0.9% 500 ML IV ONE ×2 (12:13→13:31)
[2022-11-19] MEDS ORDERED: Sodium Chloride 0.9% 100 ML IV ONE (12:16)
[2022-11-19] MEDS ORDERED: Iopamidol 612 MG/ML 100 ML Bottle IV ONE (12:16)
[2022-11-19 12:59] LABS: ESTIMATED GFR 45 mL/min (>60)
[2022-11-19] MEDS ORDERED: LORazepam 0.5 MG Tab PO ONE (14:26)
[2022-11-19] MEDS ORDERED: LORazepam 2 MG/ML SDV IVPUSH ONE (14:29)
[2022-11-19] MEDS ORDERED: Metoclopramide 10 MG/2 ML SDV IVPUSH ONE (14:29)
[2022-11-19] MEDS ORDERED: Sodium Chloride 0.9% 1,000 ML IV SCH (14:30)
[2022-11-19 14:48] VITALS: BP 163/88; PULSE 90
== END 2022-11-19 16:25 | disposition home or self-care (01) ==
LOC: JP.ED 11:37
DX: F41.9 Anxiety disorder, unspecified (principal); E86.0 Dehydration; R11.2 Nausea with vomiting, unspecified; E11.9 Type 2 diabetes mellitus without complications; I25.10 Atherosclerotic heart disease of native coronary artery without angina pectoris; E78.00 Pure hypercholesterolemia, unspecified; I10 Essential (primary) hypertension; I25.2 Old myocardial infarction; Z95.1 Presence of aortocoronary bypass graft; Z86.73 Personal history of transient ischemic attack (TIA), and cerebral infarction without residual deficits; Z88.2 Allergy status to sulfonamides; Z88.5 Allergy status to narcotic agent; Z88.8 Allergy status to other drugs, medicaments and biological substances; Z91.048 Other nonmedicinal substance allergy status; Z79.82 Long term (current) use of aspirin; Z79.02 Long term (current) use of antithrombotics/antiplatelets
CPT/HCPCS: 36415; 70450; 74177; 80053; 81001; 82803; 83605; 83690; 85025; 96361; 96374; 96375; 99284; J0780; J2060; J2765; J3490; J7030; J7040; Q9967

== ENCOUNTER 2023-06-11 14:53 | Emergency (ER) | payer OTHER ==
[2023-06-11 16:37] VITALS: BP 140/86; PULSE 76
== END 2023-06-11 16:56 | disposition home or self-care (01) ==
LOC: JP.ED 14:53
DX: S70.02XA Contusion of left hip, initial encounter (principal); S30.0XXA Contusion of lower back and pelvis, initial encounter; E11.9 Type 2 diabetes mellitus without complications; I25.10 Atherosclerotic heart disease of native coronary artery without angina pectoris; E78.00 Pure hypercholesterolemia, unspecified; I10 Essential (primary) hypertension; I25.2 Old myocardial infarction; Z86.73 Personal history of transient ischemic attack (TIA), and cerebral infarction without residual deficits; Z88.6 Allergy status to analgesic agent; Z91.048 Other nonmedicinal substance allergy status; Z88.5 Allergy status to narcotic agent; Z79.4 Long term (current) use of insulin; Z79.82 Long term (current) use of aspirin; Z79.899 Other long term (current) drug therapy; V00.831A Fall from motorized mobility scooter, initial encounter
CPT/HCPCS: 73502-26-LT; 73502-LT; 99283

== ENCOUNTER 2023-07-20 09:18 | Emergency (ER) | payer OTHER ==
[2023-07-20 10:11] VITALS: BP 146/91; PULSE 79
[2023-07-20] MEDS ORDERED: Spironolactone 25 MG Tab PO ONE (10:18)
[2023-07-20] MEDS ORDERED: Furosemide 40 MG Tab PO ONE (10:18)
[2023-07-20 10:37] LABS: BASOPHILS ABSOLUTE AUTO 0.04 K/uL (0.00-0.10); BASOPHILS PERCENT AUTO 0.4 % (0.1-1.3); EOSINOPHILS PERCENT AUTO 1.9 % (0.0-5.4); HEMATOCRIT 34.8 % (38.4-49.7); IMMATURE GRAN ABSOLUTE AUTO 0.08 K/uL (0.00-0.23); IMMATURE GRAN PERCENT AUTO 0.7 % (0.0-0.7); LYMPHOCYTES PERCENT AUTO 12.1 % (11.4-47.7); MEAN CORPUSCULAR HEMOGLOBIN 25.8 pg (31.6-35.5); MEAN CORPUSCULAR HGB CONC 31.6 g/dL (31.6-35.5); MEAN CORPUSCULAR VOLUME 81.7 fL (81.4-99.0); MONOCYTES ABSOLUTE AUTO 0.65 K/uL (0.20-0.90); MONOCYTES PERCENT AUTO 6.1 % (3.3-12.6); NEUTROPHILS ABSOLUTE AUTO 8.45 K/uL (1.0-7.6); NEUTROPHILS PERCENT AUTO 78.8 % (40.0-78.1); PLATELET COUNT,PLT 299 K/uL (130-375); RED BLOOD CELL COUNT 4.26 M/uL (4.14-5.76); WHITE BLOOD CELL COUNT,WBC 10.7 K/uL (3.2-11.0)
[2023-07-20 10:44] LABS: ANION GAP 8.2 mmol/L (5.0-14.0); CALCIUM 8.6 mg/dL (8.5-10.1); CREATININE 1.3 mg/dL (0.8-1.3); EST CRCL DRUG DOSING (CG) 54.38 mL/min; POTASSIUM,K 4.7 mmol/L (3.6-5.2)
== END 2023-07-20 11:37 | disposition home or self-care (01) ==
LOC: JP.ED 09:18
DX: I25.10 Atherosclerotic heart disease of native coronary artery without angina pectoris (principal); I11.0 Hypertensive heart disease with heart failure; I50.9 Heart failure, unspecified; E78.00 Pure hypercholesterolemia, unspecified; I25.2 Old myocardial infarction; E11.9 Type 2 diabetes mellitus without complications; M19.90 Unspecified osteoarthritis, unspecified site; Z95.1 Presence of aortocoronary bypass graft; Z88.8 Allergy status to other drugs, medicaments and biological substances; Z88.6 Allergy status to analgesic agent; Z88.2 Allergy status to sulfonamides; Z88.5 Allergy status to narcotic agent; Z91.048 Other nonmedicinal substance allergy status; Z79.82 Long term (current) use of aspirin; Z79.899 Other long term (current) drug therapy; Z79.02 Long term (current) use of antithrombotics/antiplatelets; Z91.199 Patient's noncompliance with other medical treatment and regimen due to unspecified reason
CPT/HCPCS: 36415; 80048; 85025; 99284; A9270

== ENCOUNTER 2023-11-17 15:41 | Emergency (ER) | payer OTHER ==
[2023-11-17] MEDS: Furosemide 40 MG/4 ML VIAL IVPUSH ONE (17:54)
[2023-11-17] MEDS: Ondansetron 4 MG/2 ML SDV IVPUSH ONE (19:09)
[2023-11-17] MEDS: Sodium Chloride 0.9% 10 ML Syringe FLUSH PRN (19:10)
[2023-11-17 19:12] VITALS: BP 167/99; PULSE 88
== END 2023-11-17 19:28 | disposition home or self-care (01) ==
LOC: JP.ED 15:41
DX: I13.0 Hypertensive heart and chronic kidney disease with heart failure and stage 1 through stage 4 chronic kidney disease, or unspecified chronic kidney disease (principal); I50.42 Chronic combined systolic (congestive) and diastolic (congestive) heart failure; E11.22 Type 2 diabetes mellitus with diabetic chronic kidney disease; N18.9 Chronic kidney disease, unspecified; I25.10 Atherosclerotic heart disease of native coronary artery without angina pectoris; E78.00 Pure hypercholesterolemia, unspecified; I25.2 Old myocardial infarction; M19.90 Unspecified osteoarthritis, unspecified site; Z86.73 Personal history of transient ischemic attack (TIA), and cerebral infarction without residual deficits; Z95.0 Presence of cardiac pacemaker; Z95.5 Presence of coronary angioplasty implant and graft; Z79.02 Long term (current) use of antithrombotics/antiplatelets; Z79.82 Long term (current) use of aspirin; Z79.899 Other long term (current) drug therapy; Z88.5 Allergy status to narcotic agent; Z88.2 Allergy status to sulfonamides; Z88.8 Allergy status to other drugs, medicaments and biological substances; Z91.048 Other nonmedicinal substance allergy status
CPT/HCPCS: 36415; 84484; 96374; 96375; 99284; 99284-25; J1940; J2405; J3490

== ENCOUNTER 2024-08-06 18:05 | Inpatient (IN) | payer OTHER ==
[2024-08-06 18:40] LABS: HEMATOCRIT 38.1 % (38.4-49.7); HEMOGLOBIN 13.2 g/dL (12.9-16.9); MEAN CORPUSCULAR HEMOGLOBIN 27.7 pg (31.6-35.5); MEAN CORPUSCULAR HGB CONC 34.6 g/dL (31.6-35.5); MEAN CORPUSCULAR VOLUME 79.9 fL (81.4-99.0); PLATELET COUNT,PLT 139 K/uL (130-375); RED BLOOD CELL COUNT 4.77 M/uL (4.14-5.76)
[2024-08-06 18:43] LABS: WHITE BLOOD CELL COUNT,WBC 36.4 K/uL (3.2-11.0)
[2024-08-06 19:02] LABS: BAND ABSOLUTE MAN 7.28 K/uL; BAND PERCENT MAN 20 % (5-11); LYMPHOCYTES ABSOLUTE MAN 1.82 K/uL (0.8-3.3); LYMPHOCYTES PERCENT MAN 5 % (24-44); METAMYELOCYTE ABSOLUTE MAN 0.73 K/uL; METAMYELOCYTE PERCENT MAN 2 %; MONOCYTES ABSOLUTE MAN 0.73 K/uL (0.20-0.90); MONOCYTES PERCENT MAN 2 % (2-6); NEUTROPHILS ABSOLUTE MAN 25.84 K/uL (1.0-7.6); SEG NEUTROPHILS PERCENT MAN 71 % (36-66)
[2024-08-06 19:10] LABS: ALANINE AMINOTRANSFERASE,ALT 28 U/L (12-78); ALBUMIN 3.1 g/dL (3.4-5.0); ALKALINE PHOSPHATASE 133 U/L (46-116); ANION GAP 13.9 mmol/L (5.0-14.0); ASPARTATE AMNIOTRANSFERASE,AST 22 U/L (15-37); BILIRUBIN TOTAL 1.8 mg/dL (0.2-1.0); BLOOD UREA NITROGEN,BUN 35 mg/dL (7-18); CARBON DIOXIDE,CO2 23 mmol/L (21-32); CHLORIDE,CL 105 mmol/L (100-108); CREATININE 1.7 mg/dL (0.8-1.3); EST CRCL DRUG DOSING (CG) 38.19 mL/min; ESTIMATED GFR 44 mL/min (>60); GLUCOSE RANDOM 169 mg/dL (74-106); POTASSIUM,K 3.6 mmol/L (3.6-5.2); PROTEIN TOTAL,TP 6.2 g/dL (6.4-8.2); SODIUM,NA 142 mmol/L (140-148)
[2024-08-06] MEDS: HYDROmorphone 1 MG/ML Syringe IVPUSH ONE (19:30)
[2024-08-06] MEDS: Lactated Ringers 1,000 ML IV SCH (19:32)
[2024-08-06] MEDS: droPERidol 5 MG/2 ML SDV IVPUSH ONE (19:37)
[2024-08-06] MEDS: Sodium Chloride 0.9% 10 ML Syringe FLUSH PRN (19:38)
[2024-08-06] MEDS: Iopamidol 612 MG/ML 100 ML Bottle IV SCH (19:54)
[2024-08-06] MEDS: Sodium Chloride 0.9% 80 ML IV SCH (19:54)
[2024-08-06] MEDS: LORazepam 2 MG/ML SDV IVPUSH ONE ×2 (21:40→21:41)
[2024-08-06] MEDS: Sodium Chloride 0.9% 1,000 ML IV SCH ×2 (22:16→23:29)
[2024-08-06] MEDS ORDERED: Promethazine 25 MG Tab PO PRN (22:57)
[2024-08-06] MEDS ORDERED: Cyclobenzaprine 10 MG Tab PO PRN (22:57)
[2024-08-06] MEDS: Losartan 25 MG Tab PO SCH (23:45)
[2024-08-06] MEDS: Carvedilol 3.125 MG Tab PO SCH (23:45)
[2024-08-06] MEDS: Losartan 50 MG Tab ONE (23:48)
[2024-08-07] MEDS: Ondansetron 4 MG/2 ML SDV IV PRN (00:47)
[2024-08-07] MEDS: HYDROmorphone 1 MG/ML Syringe IVPUSH PRN (00:53)
[2024-08-07] MEDS: LORazepam 2 MG/ML SDV IV PRN (03:09)
[2024-08-07 04:41] LABS: HEMATOCRIT 34.3 % (38.4-49.7); HEMOGLOBIN 11.4 g/dL (12.9-16.9); MEAN CORPUSCULAR HGB CONC 33.2 g/dL (31.6-35.5); MEAN CORPUSCULAR VOLUME 81.1 fL (81.4-99.0); PLATELET COUNT,PLT 132 K/uL (130-375); RED BLOOD CELL COUNT 4.23 M/uL (4.14-5.76); WHITE BLOOD CELL COUNT,WBC 29.3 K/uL (3.2-11.0)
[2024-08-07 04:59] LABS: ANION GAP 9.9 mmol/L (5.0-14.0); CALCIUM 8.3 mg/dL (8.5-10.1); CREATININE 1.8 mg/dL (0.8-1.3); EST CRCL DRUG DOSING (CG) 36.06 mL/min; POTASSIUM,K 4.9 mmol/L (3.6-5.2)
[2024-08-07 05:11] LABS: BAND ABSOLUTE MAN 1.47 K/uL; BAND PERCENT MAN 5 % (5-11); LYMPHOCYTES ABSOLUTE MAN 0.59 K/uL (0.8-3.3); LYMPHOCYTES PERCENT MAN 2 % (24-44); METAMYELOCYTE ABSOLUTE MAN 1.17 K/uL; METAMYELOCYTE PERCENT MAN 4 %; MONOCYTES ABSOLUTE MAN 0.29 K/uL (0.20-0.90); MONOCYTES PERCENT MAN 1 % (2-6); NEUTROPHILS ABSOLUTE MAN 25.78 K/uL (1.0-7.6); SEG NEUTROPHILS PERCENT MAN 88 % (36-66)
[2024-08-07 08:40] LABS: C-REACTIVE PROTEIN 1.33 mg/dL (<0.50)
[2024-08-07 09:22] LABS: APPEARANCE,URINE CLEAR (CLEAR); BILIRUBIN,URINE SMALL (NEGATIVE); COLOR,URINE YELLOW (YELLOW); GLUCOSE,URINE 500 mg/dL (NEGATIVE); KETONES,URINE 15 mg/dL (NEGATIVE); LEUKOCYTE ESTERASE,URINE NEGATIVE (NEGATIVE); NITRITE,URINE NEGATIVE (NEGATIVE); OCCULT BLOOD,URINE TRACE-LYSED (NEGATIVE); PH,URINE 5.5 (5.0-8.0); PROTEIN,URINE 100 mg/dL (NEGATIVE)
[2024-08-07 09:33] LABS: BACTERIA,URINE NOT SEEN; EPITHELIAL CELLS,URINE NOT SEEN; RBC,URINE NOT SEEN (0-5); WBC,URINE NOT SEEN (0-5)
[2024-08-07] MEDS: Insulin Lispro 100 Unit/ML 3 ML KwikPen SUBCUT SCH (12:04)
[2024-08-07] MEDS: Pantoprazole 40 MG Vial IVPUSH SCH (21:36)
[2024-08-07] MEDS: atorvaSTATin 20 MG Tab PO SCH (22:34)
[2024-08-08 05:01] LABS: HEMATOCRIT 34.8 % (38.4-49.7); HEMOGLOBIN 11.6 g/dL (12.9-16.9); MEAN CORPUSCULAR HEMOGLOBIN 27.4 pg (31.6-35.5); MEAN CORPUSCULAR HGB CONC 33.3 g/dL (31.6-35.5); MEAN CORPUSCULAR VOLUME 82.1 fL (81.4-99.0); RED BLOOD CELL COUNT 4.24 M/uL (4.14-5.76)
[2024-08-08 05:22] LABS: A/G RATIO 1.1 (1.2-2.2); ALANINE AMINOTRANSFERASE,ALT 58 U/L (12-78); ALKALINE PHOSPHATASE 164 U/L (46-116); ASPARTATE AMNIOTRANSFERASE,AST 37 U/L (15-37); BILIRUBIN TOTAL 1.1 mg/dL (0.2-1.0); BLOOD UREA NITROGEN,BUN 46 mg/dL (7-18); CALCIUM 8.3 mg/dL (8.5-10.1); CARBON DIOXIDE,CO2 23 mmol/L (21-32); CHLORIDE,CL 111 mmol/L (100-108); CREATININE 1.7 mg/dL (0.8-1.3); EST CRCL DRUG DOSING (CG) 38.19 mL/min; ESTIMATED GFR 44 mL/min (>60); GLUCOSE RANDOM 225 mg/dL (74-106); POTASSIUM,K 4.4 mmol/L (3.6-5.2); PROTEIN TOTAL,TP 5.8 g/dL (6.4-8.2); SODIUM,NA 146 mmol/L (140-148)
[2024-08-08 05:26] LABS: ANION GAP 16.4 mmol/L (5.0-14.0)
[2024-08-08] MEDS: Aspirin 81 MG Tab.EC PO SCH (10:56)
[2024-08-08] MEDS: Sodium Chloride 0.9% 1,000 ML IV SCH (21:46)
[2024-08-09] MEDS: LORazepam 2 MG/ML SDV IV PRN (04:52)
[2024-08-09 05:34] LABS: HEMATOCRIT 36.8 % (38.4-49.7); HEMOGLOBIN 11.8 g/dL (12.9-16.9); MEAN CORPUSCULAR HEMOGLOBIN 26.9 pg (31.6-35.5); MEAN CORPUSCULAR HGB CONC 32.1 g/dL (31.6-35.5); RED BLOOD CELL COUNT 4.38 M/uL (4.14-5.76)
[2024-08-09 05:49] LABS: ALANINE AMINOTRANSFERASE,ALT 75 U/L (12-78); ALBUMIN 3.1 g/dL (3.4-5.0); ALKALINE PHOSPHATASE 179 U/L (46-116); ASPARTATE AMNIOTRANSFERASE,AST 42 U/L (15-37); BILIRUBIN TOTAL 1.3 mg/dL (0.2-1.0); BLOOD UREA NITROGEN,BUN 57 mg/dL (7-18); CALCIUM 8.7 mg/dL (8.5-10.1); CARBON DIOXIDE,CO2 23 mmol/L (21-32); CHLORIDE,CL 114 mmol/L (100-108); CREATININE 2.1 mg/dL (0.8-1.3); EST CRCL DRUG DOSING (CG) 30.87 mL/min; ESTIMATED GFR 35 mL/min (>60); GLUCOSE RANDOM 212 mg/dL (74-106); MAGNESIUM 2.2 mg/dL (1.8-2.4); PROTEIN TOTAL,TP 5.8 g/dL (6.4-8.2); SODIUM,NA 148 mmol/L (140-148)
[2024-08-09 05:55] LABS: A/G RATIO 1.2 (1.2-2.2)
[2024-08-09] MEDS: Sodium Chloride 0.9% 1,000 ML IV ONE (06:38)
[2024-08-09] MEDS ORDERED: Prochlorperazine 10 MG Tab PO PRN (11:44)
[2024-08-09] MEDS: droPERidol 5 MG/2 ML SDV IVPUSH ONE (12:09)
[2024-08-09] MEDS: Scopalamine 1mg/3day Transdermal Patch TRDERM SCH (12:17)
[2024-08-09] MEDS: Prochlorperazine 10 MG/2 ML SDV IVPUSH PRN (13:34)
[2024-08-09] MEDS: Piperacillin/Tazobactam 4.5 GM in Sodium Chloride 0.9% 100 ML IV ONE (14:49)
[2024-08-09] MEDS ORDERED: Piperacillin/Tazobactam 4.5 GM in Sodium Chloride 0.9% 100 ML IV SCH (15:00)
[2024-08-09] MEDS: Dexamethasone 4 MG/ML SDV IVPUSH SCH (17:25)
[2024-08-10 05:31] LABS: HEMATOCRIT 32.1 % (38.4-49.7); HEMOGLOBIN 10.4 g/dL (12.9-16.9); MEAN CORPUSCULAR HEMOGLOBIN 27.4 pg (31.6-35.5); MEAN CORPUSCULAR HGB CONC 32.4 g/dL (31.6-35.5); MEAN CORPUSCULAR VOLUME 84.7 fL (81.4-99.0); RED BLOOD CELL COUNT 3.79 M/uL (4.14-5.76); WHITE BLOOD CELL COUNT,WBC 10.4 K/uL (3.2-11.0)
[2024-08-10 05:52] LABS: A/G RATIO 1.1 (1.2-2.2); ALANINE AMINOTRANSFERASE,ALT 92 U/L (12-78); ALBUMIN 2.6 g/dL (3.4-5.0); ALKALINE PHOSPHATASE 139 U/L (46-116); ASPARTATE AMNIOTRANSFERASE,AST 55 U/L (15-37); BLOOD UREA NITROGEN,BUN 51 mg/dL (7-18); CALCIUM 8.1 mg/dL (8.5-10.1); CARBON DIOXIDE,CO2 23 mmol/L (21-32); CHLORIDE,CL 116 mmol/L (100-108); CREATININE 1.9 mg/dL (0.8-1.3); EST CRCL DRUG DOSING (CG) 34.12 mL/min; ESTIMATED GFR 39 mL/min (>60); GLUCOSE RANDOM 173 mg/dL (74-106); POTASSIUM,K 3.7 mmol/L (3.6-5.2); SODIUM,NA 148 mmol/L (140-148)
[2024-08-10 05:53] LABS: ANION GAP 12.7 mmol/L (5.0-14.0); C-REACTIVE PROTEIN < 0.50 mg/dL (<0.50)
[2024-08-10] MEDS: VERIFY SCOP PATCH TOP SCH (10:17)
[2024-08-10] MEDS: Potassium Chloride 20 MEQ Tab.ER PO ONE (14:20)
[2024-08-10] MEDS: Furosemide 20 MG/2 ML VIAL IVPUSH ONE (14:21)
[2024-08-11 05:35] LABS: HEMATOCRIT 32.2 % (38.4-49.7); HEMOGLOBIN 10.7 g/dL (12.9-16.9); MEAN CORPUSCULAR HEMOGLOBIN 27.3 pg (31.6-35.5); MEAN CORPUSCULAR HGB CONC 33.2 g/dL (31.6-35.5); MEAN CORPUSCULAR VOLUME 82.1 fL (81.4-99.0); RED BLOOD CELL COUNT 3.92 M/uL (4.14-5.76); WHITE BLOOD CELL COUNT,WBC 5.1 K/uL (3.2-11.0)
[2024-08-11 05:46] LABS: A/G RATIO 0.9 (1.2-2.2); ALANINE AMINOTRANSFERASE,ALT 83 U/L (12-78); ALBUMIN 2.5 g/dL (3.4-5.0); ALKALINE PHOSPHATASE 131 U/L (46-116); ANION GAP 14.6 mmol/L (5.0-14.0); ASPARTATE AMNIOTRANSFERASE,AST 30 U/L (15-37); BILIRUBIN DIRECT 0.31 mg/dL (0.0-0.2); BILIRUBIN INDIRECT 0.59; BILIRUBIN TOTAL 0.9 mg/dL (0.2-1.0); BLOOD UREA NITROGEN,BUN 43 mg/dL (7-18); C-REACTIVE PROTEIN < 0.50 mg/dL (<0.50); CALCIUM 8.1 mg/dL (8.5-10.1); CARBON DIOXIDE,CO2 21 mmol/L (21-32); CHLORIDE,CL 113 mmol/L (100-108); CREATININE 1.8 mg/dL (0.8-1.3); EST CRCL DRUG DOSING (CG) 36.01 mL/min; ESTIMATED GFR 42 mL/min (>60); GLUCOSE RANDOM 205 mg/dL (74-106); MAGNESIUM 1.9 mg/dL (1.8-2.4); PHOSPHORUS 2.9 mg/dL (2.5-4.9); POTASSIUM,K 3.6 mmol/L (3.6-5.2); PROTEIN TOTAL,TP 5.2 g/dL (6.4-8.2); SODIUM,NA 145 mmol/L (140-148)
[2024-08-11] MEDS: Dronabinol 2.5 MG Cap PO SCH (20:45)
[2024-08-11] MEDS: OLANZapine 5 MG Tab PO SCH (21:34)
[2024-08-12 05:20] LABS: HEMATOCRIT 33.6 % (38.4-49.7); HEMOGLOBIN 11.1 g/dL (12.9-16.9); MEAN CORPUSCULAR HEMOGLOBIN 27.4 pg (31.6-35.5); RED BLOOD CELL COUNT 4.05 M/uL (4.14-5.76); WHITE BLOOD CELL COUNT,WBC 5.4 K/uL (3.2-11.0)
[2024-08-12 05:41] LABS: ALANINE AMINOTRANSFERASE,ALT 68 U/L (12-78); ALBUMIN 2.5 g/dL (3.4-5.0); ALKALINE PHOSPHATASE 129 U/L (46-116); ANION GAP 14.6 mmol/L (5.0-14.0); ASPARTATE AMNIOTRANSFERASE,AST 19 U/L (15-37); BILIRUBIN DIRECT 0.32 mg/dL (0.0-0.2); BILIRUBIN INDIRECT 0.48; BILIRUBIN TOTAL 0.8 mg/dL (0.2-1.0); BLOOD UREA NITROGEN,BUN 31 mg/dL (7-18); CARBON DIOXIDE,CO2 22 mmol/L (21-32); CHLORIDE,CL 110 mmol/L (100-108); CREATININE 1.7 mg/dL (0.8-1.3); EST CRCL DRUG DOSING (CG) 38.13 mL/min; ESTIMATED GFR 44 mL/min (>60); GLUCOSE RANDOM 169 mg/dL (74-106); PHOSPHORUS 2.8 mg/dL (2.5-4.9); POTASSIUM,K 3.6 mmol/L (3.6-5.2); PROTEIN TOTAL,TP 5.1 g/dL (6.4-8.2); SODIUM,NA 143 mmol/L (140-148)
[2024-08-12] MEDS: Furosemide 40 MG Tab PO SCH (15:16)
[2024-08-12] MEDS: Loperamide 2 MG Cap PO PRN (18:18)
[2024-08-12] MEDS: Melatonin 3 MG Tab PO SCH (21:30)
[2024-08-13 04:59] LABS: HEMATOCRIT 31.9 % (38.4-49.7); HEMOGLOBIN 10.5 g/dL (12.9-16.9); MEAN CORPUSCULAR HEMOGLOBIN 26.7 pg (31.6-35.5); MEAN CORPUSCULAR HGB CONC 32.9 g/dL (31.6-35.5); MEAN CORPUSCULAR VOLUME 81.2 fL (81.4-99.0); RED BLOOD CELL COUNT 3.93 M/uL (4.14-5.76); WHITE BLOOD CELL COUNT,WBC 9.6 K/uL (3.2-11.0)
[2024-08-13 05:12] LABS: ALBUMIN 2.3 g/dL (3.4-5.0); BLOOD UREA NITROGEN,BUN 29 mg/dL (7-18); CALCIUM 7.9 mg/dL (8.5-10.1); CARBON DIOXIDE,CO2 24 mmol/L (21-32); CHLORIDE,CL 110 mmol/L (100-108); CREATININE 1.5 mg/dL (0.8-1.3); EST CRCL DRUG DOSING (CG) 43.21 mL/min; ESTIMATED GFR 52 mL/min (>60); GLUCOSE RANDOM 166 mg/dL (74-106); PHOSPHORUS 2.3 mg/dL (2.5-4.9); POTASSIUM,K 3.2 mmol/L (3.6-5.2); SODIUM,NA 143 mmol/L (140-148)
[2024-08-13 05:13] LABS: ANION GAP 12.2 mmol/L (5.0-14.0)
[2024-08-13 08:54] LABS: ALBUMIN 2.3 g/dL (3.4-5.0); BILIRUBIN DIRECT 0.26 mg/dL (0.0-0.2); BILIRUBIN INDIRECT 0.44; BILIRUBIN TOTAL 0.7 mg/dL (0.2-1.0); PROTEIN TOTAL,TP 4.6 g/dL (6.4-8.2)
[2024-08-13] MEDS: VERIFY SCOP PATCH TOP SCH (08:56)
[2024-08-13] MEDS: Furosemide 40 MG Tab PO SCH (15:33)
[2024-08-13] MEDS: Potassium Chloride 20 MEQ Tab.ER PO ONE (21:08)
[2024-08-14] MEDS: Scopalamine 1mg/3day Transdermal Patch TRDERM SCH (10:04)
[2024-08-14 13:07] VITALS: BP 126/73; PULSE 80
[2024-08-14] MEDS ORDERED: Pantoprazole 40 MG Tab.CR PO SCH (21:00)
== END 2024-08-14 13:30 | disposition home or self-care (01) | DRG 438 ==
LOC: JP.ED 18:05 → JP.MS 22:01
PROVIDERS: ADMIT Internal Medicine; ATTEND Hospitalist
DX: K85.90 Acute pancreatitis without necrosis or infection, unspecified (principal); J96.01 Acute respiratory failure with hypoxia; C25.0 Malignant neoplasm of head of pancreas; N17.9 Acute kidney failure, unspecified; E87.20 Acidosis, unspecified; I25.10 Atherosclerotic heart disease of native coronary artery without angina pectoris; E78.00 Pure hypercholesterolemia, unspecified; N18.9 Chronic kidney disease, unspecified; Z66 Do not resuscitate; I12.9 Hypertensive chronic kidney disease with stage 1 through stage 4 chronic kidney disease, or unspecified chronic kidney disease; M19.90 Unspecified osteoarthritis, unspecified site; F31.9 Bipolar disorder, unspecified; E11.22 Type 2 diabetes mellitus with diabetic chronic kidney disease; Z96.659 Presence of unspecified artificial knee joint; E80.6 Other disorders of bilirubin metabolism; D72.829 Elevated white blood cell count, unspecified; Z88.2 Allergy status to sulfonamides; Z88.8 Allergy status to other drugs, medicaments and biological substances; Z88.5 Allergy status to narcotic agent; Z79.899 Other long term (current) drug therapy; I25.2 Old myocardial infarction; Z95.5 Presence of coronary angioplasty implant and graft; Z95.1 Presence of aortocoronary bypass graft; Z87.81 Personal history of (healed) traumatic fracture; Z86.73 Personal history of transient ischemic attack (TIA), and cerebral infarction without residual deficits; Z90.49 Acquired absence of other specified parts of digestive tract; Z98.890 Other specified postprocedural states; Z89.431 Acquired absence of right foot; Z89.432 Acquired absence of left foot
CPT/HCPCS: 36415; 71250; 71250-26; 74176; 74176-26; 74177; 80048; 80053; 80069; 80076; 81001; 82947; 83605; 83690; 83735; 84145; 85025; 85027; 86140; 87040; 87493; 96361; 96374; 96375; 97110-GP; 97161-GP; 97165-GO; 99222; 99232; 99239; 99285; 99285-25; A9270-GY; J0780; J1100; J1171; J1790; J1815; J1940; J2060; J2405; J2470; J3490; J7030; J7120; Q9967

== ENCOUNTER 2024-08-21 10:03 | Emergency (ER) | payer OTHER ==
[2024-08-21 11:55] LABS: HEMATOCRIT 32.7 % (38.4-49.7); HEMOGLOBIN 10.7 g/dL (12.9-16.9); MEAN CORPUSCULAR HGB CONC 32.7 g/dL (31.6-35.5); MEAN CORPUSCULAR VOLUME 82.4 fL (81.4-99.0); PLATELET COUNT,PLT 313 K/uL (130-375); RED BLOOD CELL COUNT 3.97 M/uL (4.14-5.76); WHITE BLOOD CELL COUNT,WBC 20.4 K/uL (3.2-11.0)
[2024-08-21 12:08] LABS: BAND ABSOLUTE MAN 1.02 K/uL; BAND PERCENT MAN 5 % (5-11); LYMPHOCYTES ABSOLUTE MAN 1.02 K/uL (0.8-3.3); LYMPHOCYTES PERCENT MAN 5 % (24-44); MONOCYTES ABSOLUTE MAN 1.63 K/uL (0.20-0.90); MONOCYTES PERCENT MAN 8 % (2-6); NEUTROPHILS ABSOLUTE MAN 16.73 K/uL (1.0-7.6); SEG NEUTROPHILS PERCENT MAN 82 % (36-66)
[2024-08-21 12:20] LABS: ALANINE AMINOTRANSFERASE,ALT 164 U/L (12-78); ALKALINE PHOSPHATASE 467 U/L (46-116); ASPARTATE AMNIOTRANSFERASE,AST 61 U/L (15-37); BLOOD UREA NITROGEN,BUN 21 mg/dL (7-18); CARBON DIOXIDE,CO2 28 mmol/L (21-32); CHLORIDE,CL 108 mmol/L (100-108); CREATININE 1.3 mg/dL (0.8-1.3); EST CRCL DRUG DOSING (CG) 49.94 mL/min; ESTIMATED GFR 61 mL/min (>60); GLUCOSE RANDOM 152 mg/dL (74-106); PROTEIN TOTAL,TP 5.1 g/dL (6.4-8.2); SODIUM,NA 144 mmol/L (140-148)
[2024-08-21 12:22] LABS: A/G RATIO 0.7 (1.2-2.2); ANION GAP 10.8 mmol/L (5.0-14.0); POTASSIUM,K 2.8 mmol/L (3.6-5.2)
[2024-08-21] MEDS: Potassium Chloride 20 MEQ Tab.ER PO ONE (12:54)
[2024-08-21] MEDS: Potassium Chloride 20 MEQ in Premix Bag 1 BAG IV ONE (12:54)
[2024-08-21 15:39] VITALS: BP 131/73; PULSE 76
== END 2024-08-21 15:40 | disposition home or self-care (01) ==
LOC: JP.ED 10:03
DX: R60.0 Localized edema (principal); E87.6 Hypokalemia; C25.0 Malignant neoplasm of head of pancreas; I12.9 Hypertensive chronic kidney disease with stage 1 through stage 4 chronic kidney disease, or unspecified chronic kidney disease; N18.9 Chronic kidney disease, unspecified; I25.10 Atherosclerotic heart disease of native coronary artery without angina pectoris; I25.2 Old myocardial infarction; E11.22 Type 2 diabetes mellitus with diabetic chronic kidney disease; Z95.5 Presence of coronary angioplasty implant and graft; Z95.1 Presence of aortocoronary bypass graft; Z90.49 Acquired absence of other specified parts of digestive tract; Z79.899 Other long term (current) drug therapy; Z79.82 Long term (current) use of aspirin; Z79.84 Long term (current) use of oral hypoglycemic drugs; Z88.5 Allergy status to narcotic agent; Z88.8 Allergy status to other drugs, medicaments and biological substances; Z88.2 Allergy status to sulfonamides; Z91.048 Other nonmedicinal substance allergy status
CPT/HCPCS: 36415; 80053; 83605; 85025; 96365; 96366; 99284; A9270; J3480

== ENCOUNTER 2024-09-09 12:07 | Inpatient (IN) | payer OTHER ==
[2024-09-09 13:14] LABS: BASOPHILS ABSOLUTE AUTO 0.06 K/uL (0.00-0.10); BASOPHILS PERCENT AUTO 0.3 % (0.1-1.3); EOSINOPHILS ABSOLUTE AUTO 0.03 K/uL (0.00-0.40); EOSINOPHILS PERCENT AUTO 0.2 % (0.0-5.4); HEMATOCRIT 32.3 % (38.4-49.7); HEMOGLOBIN 10.3 g/dL (12.9-16.9); IMMATURE GRAN ABSOLUTE AUTO 0.45 K/uL (0.00-0.23); IMMATURE GRAN PERCENT AUTO 2.5 % (0.0-0.7); LYMPHOCYTES ABSOLUTE AUTO 0.95 K/uL (0.8-3.3); LYMPHOCYTES PERCENT AUTO 5.2 % (11.4-47.7); MEAN CORPUSCULAR HEMOGLOBIN 26.8 pg (31.6-35.5); MEAN CORPUSCULAR HGB CONC 31.9 g/dL (31.6-35.5); MEAN CORPUSCULAR VOLUME 84.1 fL (81.4-99.0); MONOCYTES ABSOLUTE AUTO 1.16 K/uL (0.20-0.90); MONOCYTES PERCENT AUTO 6.4 % (3.3-12.6); NEUTROPHILS ABSOLUTE AUTO 15.57 K/uL (1.0-7.6); NEUTROPHILS PERCENT AUTO 85.4 % (40.0-78.1); PLATELET COUNT,PLT 288 K/uL (130-375); RED BLOOD CELL COUNT 3.84 M/uL (4.14-5.76); WHITE BLOOD CELL COUNT,WBC 18.2 K/uL (3.2-11.0)
[2024-09-09] MEDS: Sodium Chloride 0.9% 10 ML Syringe FLUSH PRN (13:34)
[2024-09-09] MEDS: Sodium Chloride 0.9% 500 ML IV ONE ×2 (13:34→15:13)
[2024-09-09 13:36] LABS: ANION GAP 7.1 mmol/L (5.0-14.0); C-REACTIVE PROTEIN 2.28 mg/dL (<0.50); CALCIUM 8.2 mg/dL (8.5-10.1); CREATININE 1.6 mg/dL (0.8-1.3); EST CRCL DRUG DOSING (CG) 40.57 mL/min; MAGNESIUM 1.5 mg/dL (1.8-2.4); POTASSIUM,K 3.7 mmol/L (3.6-5.2)
[2024-09-09 13:43] LABS: LACTIC ACID 1.7 mmol/L (0.4-2.0)
[2024-09-09] MEDS: Magnesium Sulfate/Water Premix 2 GM in Premix Bag 1 BAG IV ONE (14:10)
[2024-09-09] MEDS ORDERED: Ondansetron 4 MG Tab.DIS PO PRN (16:18)
[2024-09-09] MEDS ORDERED: LORazepam 2 MG/ML SDV IVPUSH PRN (16:18)
[2024-09-09] MEDS ORDERED: Sennosides/Docusate Sodium 50-8.6 MG Tab PO PRN (16:18)
[2024-09-09] MEDS ORDERED: Ondansetron 4 MG/2 ML SDV IV PRN (16:18)
[2024-09-09] MEDS ORDERED: Acetaminophen/HYDROcodone 325-5 MG Tab PO PRN (16:18)
[2024-09-09] MEDS ORDERED: Magnesium Hydroxide 400 MG/5 ML Susp 30 ML Cup PO PRN (16:18)
[2024-09-09] MEDS ORDERED: Prochlorperazine 10 MG Tab PO PRN (16:22)
[2024-09-09] MEDS ORDERED: Metoclopramide 10 MG Tab PO PRN (16:41)
[2024-09-09] MEDS: Furosemide 40 MG Tab PO SCH (18:11)
[2024-09-09] MEDS: OLANZapine 5 MG Tab PO SCH (21:10)
[2024-09-09] MEDS: Carvedilol 3.125 MG Tab PO SCH (21:14)
[2024-09-09] MEDS: Dronabinol 2.5 MG Cap PO SCH (21:20)
[2024-09-10 05:50] LABS: HEMATOCRIT 29.9 % (38.4-49.7); HEMOGLOBIN 9.5 g/dL (12.9-16.9); MEAN CORPUSCULAR HEMOGLOBIN 26.6 pg (31.6-35.5); MEAN CORPUSCULAR HGB CONC 31.8 g/dL (31.6-35.5); MEAN CORPUSCULAR VOLUME 83.8 fL (81.4-99.0); RED BLOOD CELL COUNT 3.57 M/uL (4.14-5.76); WHITE BLOOD CELL COUNT,WBC 18.2 K/uL (3.2-11.0)
[2024-09-10 06:08] LABS: A/G RATIO 0.7 (1.2-2.2); ALANINE AMINOTRANSFERASE,ALT 98 U/L (12-78); ALKALINE PHOSPHATASE 500 U/L (46-116); ASPARTATE AMNIOTRANSFERASE,AST 26 U/L (15-37); BILIRUBIN TOTAL 0.5 mg/dL (0.2-1.0); BLOOD UREA NITROGEN,BUN 24 mg/dL (7-18); C-REACTIVE PROTEIN 1.69 mg/dL (<0.50); CALCIUM 7.8 mg/dL (8.5-10.1); CARBON DIOXIDE,CO2 26 mmol/L (21-32); CHLORIDE,CL 108 mmol/L (100-108); CREATININE 1.3 mg/dL (0.8-1.3); EST CRCL DRUG DOSING (CG) 49.94 mL/min; ESTIMATED GFR 61 mL/min (>60); GLUCOSE RANDOM 145 mg/dL (74-106); MAGNESIUM 1.7 mg/dL (1.8-2.4); POTASSIUM,K 3.1 mmol/L (3.6-5.2); PROTEIN TOTAL,TP 4.8 g/dL (6.4-8.2); SODIUM,NA 143 mmol/L (140-148)
[2024-09-10 06:17] LABS: ANION GAP 12.1 mmol/L (5.0-14.0)
[2024-09-10] MEDS: Acetaminophen 325 MG Tab PO PRN (07:48)
[2024-09-10] MEDS: Bumetanide 1 MG/4 ML MDV IVPUSH SCH (09:17)
[2024-09-10] MEDS: atorvaSTATin 20 MG Tab PO SCH (09:21)
[2024-09-10] MEDS: Aspirin 81 MG Tab.Chew PO SCH (09:21)
[2024-09-10] MEDS: Potassium Chloride 20 MEQ Tab.ER PO SCH (09:21)
[2024-09-10] MEDS: Losartan 25 MG Tab PO SCH (09:28)
[2024-09-10] MEDS: Empagliflozin 10 MG Tab PO SCH (09:28)
[2024-09-10] MEDS: Potassium Chloride 20 MEQ Tab.ER PO ONE (09:36)
[2024-09-10 09:45] LABS: HEMOGLOBIN A1C 8.8 % (4.5-6.2)
[2024-09-10] MEDS: Insulin Lispro 100 Unit/ML 3 ML KwikPen SUBCUT SCH (11:57)
[2024-09-10] MEDS: Clopidogrel 75 MG Tab PO SCH (12:06)
[2024-09-10] MEDS: Magnesium Oxide 400 MG Tab PO SCH (13:14)
[2024-09-10] MEDS: Piperacillin/Tazobactam/Dext 4.5 GM in Premix Bag 1 BAG IV ONE (13:14)
[2024-09-10] MEDS: Lactobacillus Rhamnosus GG (Probiotic) Cap PO SCH (15:41)
[2024-09-10] MEDS: Magnesium Sulfate/Water Premix 2 GM in Premix Bag 1 BAG IV SCH (15:41)
[2024-09-10] MEDS: Piperacillin/Tazobactam/Dext 4.5 GM in Premix Bag 1 BAG IV SCH (17:48)
[2024-09-11 04:59] LABS: HEMATOCRIT 29.3 % (38.4-49.7); HEMOGLOBIN 9.5 g/dL (12.9-16.9); MEAN CORPUSCULAR HEMOGLOBIN 26.9 pg (31.6-35.5); MEAN CORPUSCULAR HGB CONC 32.4 g/dL (31.6-35.5); RED BLOOD CELL COUNT 3.53 M/uL (4.14-5.76); WHITE BLOOD CELL COUNT,WBC 15.3 K/uL (3.2-11.0)
[2024-09-11 05:18] LABS: A/G RATIO 0.6 (1.2-2.2); ALANINE AMINOTRANSFERASE,ALT 72 U/L (12-78); ALBUMIN 1.8 g/dL (3.4-5.0); ALKALINE PHOSPHATASE 410 U/L (46-116); ASPARTATE AMNIOTRANSFERASE,AST 20 U/L (15-37); BILIRUBIN TOTAL 0.6 mg/dL (0.2-1.0); BLOOD UREA NITROGEN,BUN 20 mg/dL (7-18); CALCIUM 8.1 mg/dL (8.5-10.1); CARBON DIOXIDE,CO2 28 mmol/L (21-32); CHLORIDE,CL 110 mmol/L (100-108); CREATININE 1.3 mg/dL (0.8-1.3); EST CRCL DRUG DOSING (CG) 49.94 mL/min; ESTIMATED GFR 61 mL/min (>60); GLUCOSE RANDOM 138 mg/dL (74-106); MAGNESIUM 1.7 mg/dL (1.8-2.4); POTASSIUM,K 3.2 mmol/L (3.6-5.2); PROTEIN TOTAL,TP 4.7 g/dL (6.4-8.2); SODIUM,NA 144 mmol/L (140-148)
[2024-09-11 05:21] LABS: ANION GAP 9.2 mmol/L (5.0-14.0)
[2024-09-11] MEDS: Magnesium Sulfate/Water Premix 2 GM in Premix Bag 1 BAG IV SCH (08:54)
[2024-09-11] MEDS: Potassium Chloride 20 MEQ Tab.ER PO ONE ×2 (10:10→17:09)
[2024-09-12 05:31] LABS: HEMATOCRIT 29.4 % (38.4-49.7); HEMOGLOBIN 9.6 g/dL (12.9-16.9); MEAN CORPUSCULAR HEMOGLOBIN 27.1 pg (31.6-35.5); MEAN CORPUSCULAR HGB CONC 32.7 g/dL (31.6-35.5); MEAN CORPUSCULAR VOLUME 83.1 fL (81.4-99.0); RED BLOOD CELL COUNT 3.54 M/uL (4.14-5.76); WHITE BLOOD CELL COUNT,WBC 18.1 K/uL (3.2-11.0)
[2024-09-12 05:52] LABS: ANION GAP 3.9 mmol/L (5.0-14.0); CREATININE 1.3 mg/dL (0.8-1.3); EST CRCL DRUG DOSING (CG) 49.94 mL/min; MAGNESIUM 1.7 mg/dL (1.8-2.4); POTASSIUM,K 4.3 mmol/L (3.6-5.2); VANCOMYCIN RANDOM 16.2 ug/mL (0.0-50.0)
[2024-09-12] MEDS: Ampicillin/Sulbactam Na 3 GM in Sodium Chloride 0.9% 100 ML IV SCH (15:26)
[2024-09-12] MEDS: hydrOXYzine HCl 25 MG Tab PO PRN (19:18)
[2024-09-12] MEDS: Zolpidem 5 MG Tab PO ONE (20:32)
[2024-09-13 06:00] LABS: HEMATOCRIT 28.3 % (38.4-49.7); HEMOGLOBIN 9.1 g/dL (12.9-16.9); MEAN CORPUSCULAR HEMOGLOBIN 26.8 pg (31.6-35.5); MEAN CORPUSCULAR HGB CONC 32.2 g/dL (31.6-35.5); MEAN CORPUSCULAR VOLUME 83.5 fL (81.4-99.0); RED BLOOD CELL COUNT 3.39 M/uL (4.14-5.76); WHITE BLOOD CELL COUNT,WBC 16.7 K/uL (3.2-11.0)
[2024-09-13 06:25] LABS: A/G RATIO 0.6 (1.2-2.2); ALANINE AMINOTRANSFERASE,ALT 60 U/L (12-78); ALBUMIN 1.8 g/dL (3.4-5.0); ALKALINE PHOSPHATASE 339 U/L (46-116); ANION GAP 5.2 mmol/L (5.0-14.0); ASPARTATE AMNIOTRANSFERASE,AST 26 U/L (15-37); BILIRUBIN TOTAL 0.4 mg/dL (0.2-1.0); BLOOD UREA NITROGEN,BUN 25 mg/dL (7-18); C-REACTIVE PROTEIN 1.14 mg/dL (<0.50); CALCIUM 8.2 mg/dL (8.5-10.1); CARBON DIOXIDE,CO2 30 mmol/L (21-32); CHLORIDE,CL 108 mmol/L (100-108); CREATININE 1.2 mg/dL (0.8-1.3); EST CRCL DRUG DOSING (CG) 54.02 mL/min; ESTIMATED GFR 68 mL/min (>60); GLUCOSE RANDOM 187 mg/dL (74-106); POTASSIUM,K 4.3 mmol/L (3.6-5.2); PROTEIN TOTAL,TP 4.9 g/dL (6.4-8.2); SODIUM,NA 143 mmol/L (140-148)
[2024-09-13] MEDS ORDERED: Zolpidem 5 MG Tab PO PRN (20:00)
[2024-09-13] MEDS ORDERED: Zolpidem 5 MG Tab PO ONE (20:00)
[2024-09-13] MEDS: Insulin Lispro 100 Unit/ML 3 ML KwikPen SUBCUT SCH (21:32)
[2024-09-14 05:14] LABS: BASOPHILS PERCENT AUTO 0.7 % (0.1-1.3); EOSINOPHILS ABSOLUTE AUTO 0.05 K/uL (0.00-0.40); EOSINOPHILS PERCENT AUTO 0.3 % (0.0-5.4); HEMATOCRIT 25.9 % (38.4-49.7); HEMOGLOBIN 8.5 g/dL (12.9-16.9); IMMATURE GRAN ABSOLUTE AUTO 0.61 K/uL (0.00-0.23); IMMATURE GRAN PERCENT AUTO 4.1 % (0.0-0.7); LYMPHOCYTES PERCENT AUTO 8.6 % (11.4-47.7); MEAN CORPUSCULAR HEMOGLOBIN 27.4 pg (31.6-35.5); MEAN CORPUSCULAR HGB CONC 32.8 g/dL (31.6-35.5); MEAN CORPUSCULAR VOLUME 83.5 fL (81.4-99.0); MONOCYTES ABSOLUTE AUTO 1.28 K/uL (0.20-0.90); MONOCYTES PERCENT AUTO 8.5 % (3.3-12.6); NEUTROPHILS ABSOLUTE AUTO 11.71 K/uL (1.0-7.6); NEUTROPHILS PERCENT AUTO 77.8 % (40.0-78.1); PLATELET COUNT,PLT 265 K/uL (130-375); WHITE BLOOD CELL COUNT,WBC 15.1 K/uL (3.2-11.0)
[2024-09-14 05:30] LABS: A/G RATIO 0.5 (1.2-2.2); ALANINE AMINOTRANSFERASE,ALT 51 U/L (12-78); ALBUMIN 1.6 g/dL (3.4-5.0); ALKALINE PHOSPHATASE 294 U/L (46-116); ANION GAP 8.4 mmol/L (5.0-14.0); ASPARTATE AMNIOTRANSFERASE,AST 24 U/L (15-37); BILIRUBIN TOTAL 0.4 mg/dL (0.2-1.0); BLOOD UREA NITROGEN,BUN 25 mg/dL (7-18); C-REACTIVE PROTEIN 1.65 mg/dL (<0.50); CALCIUM 8.2 mg/dL (8.5-10.1); CARBON DIOXIDE,CO2 28 mmol/L (21-32); CHLORIDE,CL 106 mmol/L (100-108); CREATININE 1.1 mg/dL (0.8-1.3); EST CRCL DRUG DOSING (CG) 58.93 mL/min; ESTIMATED GFR 75 mL/min (>60); GLUCOSE RANDOM 179 mg/dL (74-106); POTASSIUM,K 3.9 mmol/L (3.6-5.2); PROTEIN TOTAL,TP 4.9 g/dL (6.4-8.2); SODIUM,NA 142 mmol/L (140-148)
[2024-09-14 09:05] VITALS: BP 123/60; PULSE 79
== END 2024-09-14 10:39 | disposition home or self-care (01) | DRG 872 ==
LOC: JP.ED 12:07 → JP.MS 15:23
PROVIDERS: ADMIT Hospitalist; ATTEND Hospitalist
DX: A41.02 Sepsis due to Methicillin resistant Staphylococcus aureus (principal); L03.116 Cellulitis of left lower limb; I13.0 Hypertensive heart and chronic kidney disease with heart failure and stage 1 through stage 4 chronic kidney disease, or unspecified chronic kidney disease; C25.9 Malignant neoplasm of pancreas, unspecified; L03.115 Cellulitis of right lower limb; A41.89 Other specified sepsis; A41.81 Sepsis due to Enterococcus; Z66 Do not resuscitate; I25.10 Atherosclerotic heart disease of native coronary artery without angina pectoris; E11.22 Type 2 diabetes mellitus with diabetic chronic kidney disease; I25.2 Old myocardial infarction; E78.00 Pure hypercholesterolemia, unspecified; E83.42 Hypomagnesemia; N18.9 Chronic kidney disease, unspecified; I50.9 Heart failure, unspecified; E87.6 Hypokalemia; R04.0 Epistaxis; G47.00 Insomnia, unspecified; Z88.5 Allergy status to narcotic agent; Z88.2 Allergy status to sulfonamides; Z88.8 Allergy status to other drugs, medicaments and biological substances; Z95.5 Presence of coronary angioplasty implant and graft; Z90.49 Acquired absence of other specified parts of digestive tract; Z79.02 Long term (current) use of antithrombotics/antiplatelets; Z79.82 Long term (current) use of aspirin; Z98.52 Vasectomy status; Z79.899 Other long term (current) drug therapy; Z96.659 Presence of unspecified artificial knee joint; Z98.890 Other specified postprocedural states; Z87.891 Personal history of nicotine dependence
CPT/HCPCS: 36415; 80048; 80053; 80202; 82947; 83036; 83605; 83735; 84145; 85025; 85027; 86140; 87040; 87070; 87077; 87186; 87205; 96361; 96365; 96368; 99223; 99231; 99232; 99239; 99284-25; 99285; A9270-GY; J0295; J1815; J2543; J3475; J3490; J7040; J7050